=== PATIENT | female | born 1960 | race Caucasian/White ===

== ENCOUNTER → 2018-11-07 10:35 | Outpatient (CLI) | payer MEDICAID ==
[2018-11-07 11:12] LABS: BASOPHILS 0.3 % (0-2); EOSINOPHILS 3.7 % (0-7); HEMATOCRIT 33.6 % (36.0-48.0); HEMOGLOBIN 11.6 g/dL (12-16); IMMATURE GRANULOCYTES 0.3 % (0-5); LYMPHOCYTES 34.1 % (15-50); MCH 32.2 pg (26.0-34.0); MCHC 34.5 g/dL (31.0-37.0); MCV 93.3 fL (80.0-100.0); MONOCYTES 11.5 % (2-11); NEUTROPHILS 50.1 % (40-80); PLATELET COUNT 79 10x3/uL (130-400); RDW 14.9 % (11.5-14.5); WBC 5.8 10x3/uL (4.8-10.8)
[2018-11-07 11:20] LABS: INR 1.39 (0.85-1.17); PROTIME 16.5 SECONDS (11.6-15.0)
[2018-11-07 11:23] LABS: ALBUMIN 2.4 g/dL (3.4-5.0); ALKALINE PHOSPHATASE 201 U/L (46-116); ALT (SGPT) 15 U/L (10-68); BILIRUBIN - DIRECT 1.07 mg/dL (0.00-0.30); BILIRUBIN - INDIRECT 1.55 mg/dL (0.00-1.00); BILIRUBIN - TOTAL 2.62 mg/dL (0.2-1.3); CALC OSMOLALITY 278 mosm/kg (275-300); CALCIUM 8.4 mg/dL (8.5-10.1); CARBON DIOXIDE 24.9 mmol/L (21.0-32.0); CHLORIDE - SERUM 107 mmol/L (98-107); CREATININE - SERUM 0.8 mg/dL (0.6-1.3); GLUCOSE 105 mg/dL (74-106); SODIUM 140 mmol/L (136-145); UREA NITROGEN 12 mg/dL (7-18); eGFR NON AFRICAN AMERICAN 78 mL/min (90-120)
[2018-11-07 11:58] LABS: PLATELET ESTIMATE DECREASED
[2018-11-07 11:59] LABS: ANISOCYTOSIS OCC; HYPOCHROMASIA OCC
== END | disposition home or self-care (01) ==
LOC: D.LAB 10:35 → D.CT 11:00
PROVIDERS: ATTEND Internal Medicine Gastroenterology
DX: K74.60 Unspecified cirrhosis of liver (principal)

== ENCOUNTER 2019-10-13 16:17 | Inpatient (IN) | payer MEDICAID ==
[~2019-10-13] VITALS: Ht 154.9 cm; Wt 104.2 kg
[2019-10-13] MEDS ORDERED: UNKNOWN MEDS (16:32)
[2019-10-13 17:03] LABS: BASOPHILS 0 % (0-2); EOSINOPHILS 0.8 % (0-7); HEMATOCRIT 22.9 % (36.0-48.0); IMMATURE GRANULOCYTES 0.6 % (0-5); LYMPHOCYTES 15.1 % (15-50); MCH 28.5 pg (26.0-34.0); MEAN PLATELET VOLUME 10.5 fL (7.4-10.4); MONOCYTES 12.9 % (2-11); NEUTROPHILS 70.6 % (40-80); RBC 2.49 10x6/uL (4.00-5.40); RDW 18.3 % (11.5-14.5); WBC 4.8 10x3/uL (4.8-10.8)
[2019-10-13 17:04] LABS: HEMOGLOBIN 7.1 g/dL (12-16); PLATELET COUNT 60 10x3/uL (130-400)
[2019-10-13 17:18] LABS: ALBUMIN 1.6 g/dL (3.4-5.0); ANION GAP 11.8 mmol/L (8-16); APTT 51.4 SECONDS (22.8-39.4); BILIRUBIN - TOTAL 4.5 mg/dL (0.2-1.3); CALCIUM 7.7 mg/dL (8.5-10.1); PROTEIN - SERUM 6.7 g/dL (6.4-8.2); PROTIME 30.6 SECONDS (11.6-15.0)
[2019-10-13 17:22] LABS: PLATELET ESTIMATE DECREASED
[2019-10-13 17:32] LABS: POTASSIUM - SERUM 2.8 mmol/L (3.5-5.1)
[2019-10-13 19:00] VITALS: BP 117/55
--- NOTE | 2019-10-13 19:50 | NUR ---
GUAC IS POSITIVE, PROVIDER NOTIFIED.
[2019-10-13 20:16] VITALS: BP 119/56
--- NOTE | 2019-10-13 20:45 | NUR ---
BLOOD INFUSING PER ORDER, PATIENT A+O X3, VITAL SIGNS BEING MONITORED, PATIENT LAYING ON STRETCHER TALKING ON HER PHONE.
--- NOTE | 2019-10-13 21:18 | NUR ---
RECEIVED FROM ER. PT IS A&O, IST UNIT OF PRBC INFUSING TO 20G. L. BREAST, PROTONIX TO 22G. L.HAND, BED IS LOW, SRX2, CALL LIGHT IN REACH, WILL CONTINUE PLAN OF CARE
[2019-10-13] MEDS ORDERED: VITAMIN D1000 UNI1 PO (21:22)
[2019-10-13] MEDS ORDERED: AMBIEN10 MG PO (21:22)
[2019-10-13] MEDS ORDERED: TOPROL XL25 MG PO (21:23)
[2019-10-13] MEDS ORDERED: LYRICA25 MG PO (21:24)
[2019-10-13] MEDS ORDERED: FUROSEMIDE20 MG PO (21:25)
--- NOTE | 2019-10-13 23:07 | NUR ---
ALTHEA DANIEL STARTED 2ND UNIT OF PRBC
[2019-10-14] VITALS (7 sets, daily range): BP systolic 109–136; BP diastolic 48–57; BMI 38.8; BMI 38.7
--- NOTE | 2019-10-14 02:05 | NUR ---
I have reviewed this patient and I concur with the Shift Assessment completed by the Licensed Practical Nurse today this shift.
--- NOTE | 2019-10-14 02:26 | NUR ---
ADMISSION ASSESSMENT COMPLETED.
[2019-10-14 05:30] LABS: ALBUMIN 1.3 g/dL (3.4-5.0); ALKALINE PHOSPHATASE 90 U/L (30-120); ALT (SGPT) 9 U/L (10-68); BILIRUBIN - TOTAL 4.99 mg/dL (0.2-1.3); CALC OSMOLALITY 270 mosm/kg (275-300); CALCIUM 7.1 mg/dL (8.5-10.1); CARBON DIOXIDE 25.6 mmol/L (21.0-32.0); CHLORIDE - SERUM 106 mmol/L (98-107); CREATININE - SERUM 0.8 mg/dL (0.6-1.3); GLUCOSE 85 mg/dL (74-106); POTASSIUM - SERUM 3.3 mmol/L (3.5-5.1); PROTEIN - SERUM 5.5 g/dL (6.4-8.2); SODIUM 137 mmol/L (136-145); UREA NITROGEN 8 mg/dL (7-18); eGFR NON AFRICAN AMERICAN 78 mL/min (90-120)
[2019-10-14 06:15] LABS: BASOPHILS 0.3 % (0-2); EOSINOPHILS 1.9 % (0-7); HEMATOCRIT 24.7 % (36.0-48.0); IMMATURE GRANULOCYTES 1.1 % (0-5); LYMPHOCYTES 23.1 % (15-50); MCH 28.6 pg (26.0-34.0); MCHC 32.4 g/dL (31.0-37.0); MONOCYTES 14.8 % (2-11); NEUTROPHILS 58.8 % (40-80); WBC 3.6 10x3/uL (4.8-10.8)
[2019-10-14 06:37] LABS: MCV 88.2 fL (80.0-100.0)
[2019-10-14 06:38] LABS: PLATELET COUNT 37 10x3/uL (130-400)
--- NOTE | 2019-10-14 07:15 | NUR ---
RECEIVED PT IN BED EYES CLOSED RESP UNLABORED SKIN W/D NAD NOTED WILL CONTINUE TO MONITOR
[2019-10-14 09:39] LABS: UDS - AMPHET NEGATIVE QUAL (NEGATIVE); UDS - BARB NEGATIVE QUAL (NEGATIVE); UDS - BENZO NEGATIVE QUAL (NEGATIVE); UDS - COCAINE NEGATIVE QUAL (NEGATIVE); UDS - OPIATE NEGATIVE QUAL (NEGATIVE); UDS - PCP NEGATIVE QUAL (NEGATIVE); UDS - THC NEGATIVE QUAL (NEGATIVE)
[2019-10-14 10:25] LABS: BILIRUBIN NEGATIVE (NEGATIVE); GLUCOSE NEGATIVE (NEGATIVE); KETONE NEGATIVE (NEGATIVE); NITRITE NEGATIVE (NEGATIVE); SPECIFIC GRAVITY 1.025 (1.005-1.020)
[2019-10-14 10:26] LABS: BACTERIA MANY /hpf (NEGATIVE); RED CELLS - URINE 0-5 /hpf (0-5)
[2019-10-14 10:27] LABS: EPITHELIAL CELLS 0-5 /hpf (0-5)
--- NOTE | 2019-10-14 19:20 | NUR ---
RECEIVED REPORT, WILL ASSUME CARE OF PT, SLEEPING, NO DISTRESS NOTICED AT THIS TIME, BED IS LOW, SRX2, CALL LIGHT IN REACH, WILL CONTINUE PLAN OF CARE
[2019-10-15 01:53] LABS: BILIRUBIN NEGATIVE (NEGATIVE); GLUCOSE NEGATIVE (NEGATIVE); KETONE NEGATIVE (NEGATIVE); NITRITE NEGATIVE (NEGATIVE); UROBILINOGEN NORMAL (NORMAL)
[2019-10-15 01:54] LABS: BACTERIA FEW /hpf (NEGATIVE); EPITHELIAL CELLS 0-5 /hpf (0-5); RED CELLS - URINE 0-5 /hpf (0-5); WHITE CELLS - URINE 0-5 /hpf (NEGATIVE)
--- NOTE | 2019-10-15 02:38 | NUR ---
I have reviewed this patient and I concur with the Shift Assessment completed by the Licensed Practical Nurse today this shift.
[2019-10-15 05:23] VITALS: BP 125/44
[2019-10-15 06:43] LABS: BASOPHILS 0.3 % (0-2); EOSINOPHILS 2.2 % (0-7); HEMATOCRIT 25.9 % (36.0-48.0); HEMOGLOBIN 8.2 g/dL (12-16); IMMATURE GRANULOCYTES 0.5 % (0-5); LYMPHOCYTES 25.1 % (15-50); MCH 28.5 pg (26.0-34.0); MCHC 31.7 g/dL (31.0-37.0); MCV 89.9 fL (80.0-100.0); MEAN PLATELET VOLUME 10.4 fL (7.4-10.4); MONOCYTES 13.7 % (2-11); NEUTROPHILS 58.2 % (40-80); RBC 2.88 10x6/uL (4.00-5.40); RDW 18.4 % (11.5-14.5); WBC 3.7 10x3/uL (4.8-10.8)
[2019-10-15 06:50] LABS: INR 2.75 (0.85-1.17); PROTIME 28.6 SECONDS (11.6-15.0)
[2019-10-15 06:58] LABS: ALBUMIN 1.5 g/dL (3.4-5.0); ANION GAP 8.3 mmol/L (8-16); BILIRUBIN - TOTAL 5.04 mg/dL (0.2-1.3); CALCIUM 7.4 mg/dL (8.5-10.1); POTASSIUM - SERUM 3.3 mmol/L (3.5-5.1)
[2019-10-15 07:05] LABS: PLATELET COUNT 59 10x3/uL (130-400)
--- NOTE | 2019-10-15 09:05 | NUR ---
ASSESSMENT DONE, DENIES NEEDS
[2019-10-15 09:21] VITALS: BP 121/50
--- NOTE | 2019-10-15 10:14 | NUR ---
I have reviewed this patient and I concur with the Shift Assessment completed by the Licensed Practical Nurse today this shift.
[2019-10-15 10:26] LABS: PLATELET ESTIMATE DECREASED
[2019-10-15 13:03] VITALS: BP 156/68
[2019-10-15 17:38] VITALS: BP 126/52
--- NOTE | 2019-10-15 19:15 | NUR ---
UP WITH ASSIST TO BR.
--- NOTE | 2019-10-15 20:40 | NUR ---
HS MEDS GIVEN WITH FRESH ICE WATER. UP WITH ASSIST TO BR.
[2019-10-15 21:31] VITALS: BP 124/45
--- NOTE | 2019-10-15 23:01 | NUR ---
UP WITH ASSIST TO BR.
--- NOTE | 2019-10-16 00:02 | NUR ---
UP WITH ASSIST TO BR.
[2019-10-16 00:30] VITALS: BP 132/51
--- NOTE | 2019-10-16 00:49 | NUR ---
UP WITH ASSIST TO BR.
--- NOTE | 2019-10-16 03:46 | NUR ---
I have reviewed this patient and I concur with the Shift Assessment completed by the Licensed Practical Nurse today this shift.
[2019-10-16 04:39] VITALS: BP 123/57
[2019-10-16 06:29] LABS: BASOPHILS 0.2 % (0-2); EOSINOPHILS 1.7 % (0-7); HEMATOCRIT 26.8 % (36.0-48.0); HEMOGLOBIN 8.4 g/dL (12-16); IMMATURE GRANULOCYTES 0.5 % (0-5); LYMPHOCYTES 30.8 % (15-50); MCH 28.3 pg (26.0-34.0); MCHC 31.3 g/dL (31.0-37.0); MCV 90.2 fL (80.0-100.0); MEAN PLATELET VOLUME 10.1 fL (7.4-10.4); NEUTROPHILS 52.8 % (40-80); PLATELET COUNT 59 10x3/uL (130-400); RBC 2.97 10x6/uL (4.00-5.40); RDW 18.3 % (11.5-14.5); WBC 4.2 10x3/uL (4.8-10.8)
[2019-10-16 06:38] LABS: INR 2.76 (0.85-1.17); PROTIME 28.7 SECONDS (11.6-15.0)
[2019-10-16 06:42] LABS: ALBUMIN 1.5 g/dL (3.4-5.0); ANION GAP 8.3 mmol/L (8-16); BILIRUBIN - TOTAL 4.41 mg/dL (0.2-1.3); CALCIUM 7.8 mg/dL (8.5-10.1); CARBON DIOXIDE 28.6 mmol/L (21.0-32.0); CREATININE - SERUM 0.9 mg/dL (0.6-1.3); POTASSIUM - SERUM 3.9 mmol/L (3.5-5.1); PROTEIN - SERUM 6.3 g/dL (6.4-8.2)
--- NOTE | 2019-10-16 07:39 | NUR ---
ASSESSMENT DONE, DENIES NEEDS
[2019-10-16 07:59] VITALS: BP 117/51
--- NOTE | 2019-10-16 09:23 | NUR ---
I have reviewed this patient and I concur with the Shift Assessment completed by the Licensed Practical Nurse today this shift.
--- NOTE | 2019-10-16 10:20 | NUR ---
REHAB PRESCREENING CONSULT RECIEVED AND THE CHART HAS BEEN REVIEWED. SHE [place] [employer] AND WILL REQUIRE A PREAUTH. SHE HAS A PT AND OT EVAL ORDERED BUT NOT COMPLETED. SPOKE TO THE CM SHE WILL DISCUSS REHAB WITH THE PATIENT AND DETERMINE IF SHE FEELS IS WOULD BE BENEFICIAL FOR HER AT THIS TIME. IS SHE DOES ALL INFORMATION WILL BE SUBMITTED TO WHEN COMPLETED FOR THEIR REVIEW. FREDERICK GRIGGS RN CLINICAL LIAISON, REHAB
[2019-10-16 11:41] VITALS: BP 134/56
--- NOTE | 2019-10-16 14:38 | MORECARE ---
CASE MANAGEMENT DISCHARGE SUMMARY PATIENT: OBIE JARAMILLO UNIT: [id number] ADM DATE: 10/13/19 AGE: 59 : 64 SEX: F ROOM/BED: D.5320 AUTHOR: CHERRI LAZO PHYSICIAN: REFERRING PHYSICIAN: NORIS PRAKASH DO DATE OF SERVICE: 10/16/19 Discharge Plan Patient Name: OBIE JARAMILLO Facility: [facility]:[place] : 1960 Planned Disposition: Rehab Fac/Unit w Plan Readm Anticipated Discharge Date: Discharge Date: Expected LOS: Initial Reviewer: [email or web address] Initial Review Date: 10/13/2019 Generated: 10/16/19 3:37 pm DCP- Discharge Planning Updated by [email or web address]: Onelia Atkins on 10/16/19 1:[address] Patient Name: OBIE JARAMILLO Admission Status: ER Accout number: [id number] Admission Date: 10-13-2019 : 1960 Admission Diagnosis:UNSPECIFIED ABDOMINAL PAIN Attending: NORIS PRAKASH Current LOS: 3 Anticipated DC Date: Planned Disposition: Rehab Fac/Unit w Plan Readm Primary Insurance[place] [employer] [facility] Discharge Planning Comments: CM met with patient to complete initial dc planning assessment. CM educated patient on the CM role and verbal consent given by patient to complete assessment. CM verified patient's address, phone number, and emergency contact phone numbers. Patient currently lives home alone, and does not think she can care for herself any longer. States she is severely swollen and is having difficulty walking. CM discussed availability of home health, rehab services, and medical equipment. MAXWELL form signed by patient for 1. [facility] rehab, 2. [place] [facility] , 3, [facility]. Signed form placed in chart and signed form given to patient.Spoke with Gracie from IP rehab who states an auth is pending. Transportation provider at discharge will be Reji [phone] his Karen [phone]. CM will continue to follow and will assist as needed with dc plans/needs. Roller Checker: Onelia Atkins MSN,RN,CM DCPIA - Discharge Planning Initial Assessment Updated by [id number]: Onelia Atkins on 10/16/19 2:26 pm * Is the patient Alert and Oriented? Yes * How many steps to enter\exit or inside your home? 0/0 * PCP ALIA * Pharmacy [facility] * Preadmission Environment Home Alone * ADLs Independent * Equipment None * List name and contact numbers for known caregivers / representatives who currently or will assist patient after discharge: BROTHER (REJI) [phone] KAREN- OF REJI (MEGAN) [phone] * Verbal permission to speak to the caregivers and representatives has been obtained from the patient. Yes * Community resources currently utilized None * Please name any agencies selected above. [facility] * Additional services required to return to the preadmission environment? Yes * Can the patient safely return to the preadmission environment? No * Has this patient been hospitalized within the prior 30 days at any hospital? No Coverage Notice Reviewer: [id number] - Onelia Atkins Notice Issued Date-Time: 10/16/2019 10:20 Notice Type: Patient Choice Letter Notice Delivered To: Family Member Relationship to Patient: Assistant Housekeeping Manager Name: Delivery Method: HAND - Hand Delivered Susana Days: Prior Verbal Notification: Recipient Understood Notice: Yes Recipient Signature: Yes Med Rec Note Co-signed by Attending: Coverage Notice Comment: MAXWELL signed for lucita denney pines Patient Name: OBIE JARAMILLO Page [phone] at 1438 All edits/amendments must be made on the electronic document DICTATION DATE: 10/16/191436 PHARMACOLOGY PROFESSOR: CARMEN 10/16/19 143 RPT#: [id number] DC DATE: STATUS: ADM IN [facility] [address] [place] [address] END OF REPORT
[2019-10-16 16:33] VITALS: BP 125/54
--- NOTE | 2019-10-16 18:26 | NUR ---
WITHOUT CHANGES OR DISTRESS NOTED AT THIS TIME. DENIES NEEDS
[2019-10-16 20:00] VITALS: BP 118/57
--- NOTE | 2019-10-16 20:30 | NUR ---
UP WITH ASSIST TO BSC.
[2019-10-17] VITALS: BP 124/58
[2019-10-17 04:00] VITALS: BP 141/60
--- NOTE | 2019-10-17 07:16 | NUR ---
ASSESSMENT DONE. DENIES NEEDS
[2019-10-17 08:09] LABS: BASOPHILS 0.5 % (0-2); EOSINOPHILS 2.1 % (0-7); HEMATOCRIT 25.7 % (36.0-48.0); HEMOGLOBIN 8.4 g/dL (12-16); IMMATURE GRANULOCYTES 0.3 % (0-5); LYMPHOCYTES 34.5 % (15-50); MCH 29.4 pg (26.0-34.0); MCHC 32.7 g/dL (31.0-37.0); MCV 89.9 fL (80.0-100.0); MONOCYTES 13.5 % (2-11); NEUTROPHILS 49.1 % (40-80); RBC 2.86 10x6/uL (4.00-5.40); RDW 18.3 % (11.5-14.5); WBC 3.8 10x3/uL (4.8-10.8)
[2019-10-17 08:15] LABS: INR 2.61 (0.85-1.17); PROTIME 27.5 SECONDS (11.6-15.0)
[2019-10-17 08:17] LABS: PLATELET COUNT 47 10x3/uL (130-400)
[2019-10-17 08:23] LABS: ALBUMIN 1.5 g/dL (3.4-5.0); ANION GAP 5.1 mmol/L (8-16); BILIRUBIN - TOTAL 3.64 mg/dL (0.2-1.3); CALCIUM 7.6 mg/dL (8.5-10.1); CARBON DIOXIDE 29.8 mmol/L (21.0-32.0); CREATININE - SERUM 0.9 mg/dL (0.6-1.3); POTASSIUM - SERUM 3.9 mmol/L (3.5-5.1); PROTEIN - SERUM 6.2 g/dL (6.4-8.2)
--- NOTE | 2019-10-17 09:24 | NUR ---
I have reviewed this patient and I concur with the Shift Assessment completed by the Licensed Practical Nurse today this shift.
[2019-10-17 09:25] VITALS: BP 123/56
--- NOTE | 2019-10-17 12:46 | NUR ---
OT NOTE: PT DOING BETTER TODAY. ABLE TO PERFORM SUPINE TO SIT WITH MIN ASSIST; EOB SITTING WITH GOOD BALANCE; ABLE TO AMB TO BATHROOM WITH AUTO SERVICE REPRESENTATIVE.. CONT TO BE UNSTEADY WITH GAIT. TOILETING WITH SBA; AMB TO SINK FOR SINK HYGIENE WITH MIN ASSIST. FATIGUES QUICKLY; POOR FUNCTIONAL ENDURANCE. MOD ASSIST IWTH LE DRESSING. BACK TO BED WITH MIN ASSIST; EDUCATED ON SAFETY AND ENDURANCE TASKS. HYACINTH HAWTHORNE, OTR/L [phone]
--- NOTE | 2019-10-17 12:48 | NUR ---
Nutrition Follow-up: PO intake fluctuating. Reports eating >50% of breakfast this AM. C/o early satiety. States that she is going to try some Ensure (one bottle at BS). Diet: Low Na Wt: 229.2# (10/15); 232.5# (10/14); 205# (10/12 - stated) Last BM: 10/14 Labs noted: Ca 7.6, Alb 1.5 Meds noted: Lasix, Protonix, electrolyte protocol -Encourage PO intake and honor food preferences within diet restrictions. -Offer nutrition supplements. -Monitor wt; noted daily wts ordered. -RD following.
[2019-10-17] MEDS ORDERED: LEVAQUIN750 MG PO (13:07)
[2019-10-17] MEDS ORDERED: K-DUR20 MEQ PO (13:08)
[2019-10-17] MEDS ORDERED: ALDACTONE100 MG PO (13:08)
[2019-10-17] MEDS ORDERED: LASIX40 MG PO (13:08)
[2019-10-17 13:45] VITALS: BP 133/56
[2019-10-17 14:11] VITALS: Ht 154.9 cm; Wt 104.2 kg
--- NOTE | 2019-10-17 14:14 | NUR ---
I CALLED BEAN PAEZ APN TO SEE ABOUT CONTINUATION OF MEDICATIONS OF FLORAGEN, PROTONIX, AND NICODERM PATCH FOR REHAB. STATES TO CONTINUE.
[2019-10-17] MEDS ORDERED: PROTONIX40 MG PO (14:16)
[2019-10-17] MEDS ORDERED: FLORAJEN3 CAPS460 MG PO (14:16)
[2019-10-17] MEDS ORDERED: NICODERM CQ1 EAC3 TOPICAL (14:16)
--- NOTE | 2019-10-17 15:37 | NUR ---
OT NOTE: PT COMPLETED ADL MOB WITH EVELIA Hernandez. PT COMPLETED SITTING AND STANDING BALANCE WITH SBA/CGA. PT CUED ON PURSE BREATHING TECHNIQUES SECONDARY TO SOB WITH ACTIVITIES. PT COMPLETED UB/LB HYGIENE TASKS WITH SETUP. [phone] THANK YOU,MOLINA SUMMERS
--- NOTE | 2019-10-17 17:45 | NUR ---
DC GIVEN TO PT
--- NOTE | 2019-10-17 18:00 | NUR ---
REPORT CALLED TO REHAB
--- NOTE | 2019-10-17 19:19 | NUR ---
BED LOW AND CALL LIGHT IS WITH PT PT IS AWAKE ON HER PHONE
--- NOTE | 2019-10-18 08:59 | MORECARE ---
CASE MANAGEMENT DISCHARGE SUMMARY PATIENT: OBIE JARAMILLO UNIT: [id number] ADM DATE: 10/13/19 AGE: 59 : 64 SEX: F ROOM/BED: D.4460 AUTHOR: CHERRI LAZO PHYSICIAN: REFERRING PHYSICIAN: NORIS PRAKASH DO DATE OF SERVICE: 10/18/19 Discharge Plan Patient Name: OBIE JARAMILLO Facility: [facility]:[place] : 1960 Planned Disposition: Rehab Fac/Unit w Plan Readm Anticipated Discharge Date: Discharge Date: 10/17/2019 Expected LOS: Initial Reviewer: [email or web address] Initial Review Date: 10/13/2019 Generated: 10/18/19 9:59 am DCP- Discharge Planning Updated by [email or web address]: Onelia Atkins on 10/16/19 1:[address] Patient Name: OBIE JARAMILLO Admission Status: ER Accout number: [id number] Admission Date: 10-13-2019 : 1960 Admission Diagnosis:UNSPECIFIED ABDOMINAL PAIN Attending: NORIS PRAKASH Current LOS: 3 Anticipated DC Date: Planned Disposition: Rehab Fac/Unit w Plan Readm Primary Insurance: [place] [employer] Discharge Planning Comments: CM met with patient to complete initial dc planning assessment. CM educated patient on the CM role and verbal consent given by patient to complete assessment. CM verified patient's address, phone number, and emergency contact phone numbers. Patient currently lives home alone, and does not think she can care for herself any longer. States she is severely swollen and is having difficulty walking. CM discussed availability of home health, rehab services, and medical equipment. MAXWELL form signed by patient for 1. [facility] IP rehab, 2. [place] or [facility] , 3, [facility]. Signed form placed in chart and signed form given to patient.Spoke with Gracie from IP rehab who states an auth is pending. Transportation provider at discharge will be Reji [phone] his Karen [phone]. CM will continue to follow and will assist as needed with dc plans/needs. Tool And Die Maker Level Five: Onelia Atkins MSN,RN,CM DCPIA - Discharge Planning Initial Assessment Updated by [email or web address]: Onelia Atkins on 10/16/19 2:26 pm * Is the patient Alert and Oriented? Yes * How many steps to enter\exit or inside your home? 0/0 * PCP ALIA * Pharmacy [facility] * Preadmission Environment Home Alone * ADLs Independent * Equipment None * List name and contact numbers for known caregivers / representatives who currently or will assist patient after discharge: BROTHER (REJI) [phone] KAREN- OF REJI (MEGAN) [phone] * Verbal permission to speak to the caregivers and representatives has been obtained from the patient. Yes * Community resources currently utilized None * Please name any agencies selected above. [facility] * Additional services required to return to the preadmission environment? Yes * Can the patient safely return to the preadmission environment? No * Has this patient been hospitalized within the prior 30 days at any hospital? No Coverage Notice Reviewer: [id number] - Onelia Atkins Notice Issued Date-Time: 10/16/2019 10:20 Notice Type: Patient Choice Letter Notice Delivered To: Family Member Relationship to Patient: Stiff Leg Operator Name: Delivery Method: HAND - Hand Delivered Susana Days: Prior Verbal Notification: Recipient Understood Notice: Yes Recipient Signature: Yes Med Rec Note Co-signed by Attending: Coverage Notice Comment: MAXWELL signed for ip rehablucita pines Last DP export: 10/16/19 1:38 p Patient Name: OBIE JARAMILLO Page [id number] at 0859 All edits/amendments must be made on the electronic document DICTATION DATE: 10/18/19858 MILK TANKER DRIVER: CARMEN 10/18/19 0859 RPT#: [id number] DC DATE:10/17/19 STATUS: DIS IN [facility] [address] [facility] [place] [address] END OF REPORT
== END 2019-10-17 20:00 | DRG 432 ==
LOC: D.ER 16:17 → D.M2 19:50
PROVIDERS: Family Medicine; Internal Medicine Nephrology; ADMIT Family Medicine; ATTEND Family Medicine
DX: K74.60 Unspecified cirrhosis of liver (principal); E43 Unspecified severe protein-calorie malnutrition; D61.818 Other pancytopenia; N39.0 Urinary tract infection, site not specified; R18.8 Other ascites; F17.203 Nicotine dependence unspecified, with withdrawal; K76.6 Portal hypertension; D64.9 Anemia, unspecified; E87.6 Hypokalemia; Z68.38 Body mass index [BMI] 38.0-38.9, adult; F32.9 Major depressive disorder, single episode, unspecified; B96.89 Other specified bacterial agents as the cause of diseases classified elsewhere

== ENCOUNTER 2019-10-17 14:50 | Inpatient (IN) | payer MEDICAID ==
[~2019-10-17] VITALS: Ht 154.9 cm; Wt 104.3 kg
[~2019-10-17 14:50] MED LIST: ALDACTONE100 MG PO; AMBIEN10 MG PO; FLORAJEN3 CAPS460 MG PO; FUROSEMIDE20 MG PO; K-DUR20 MEQ PO; LASIX40 MG PO; LEVAQUIN750 MG PO; LYRICA25 MG PO; NICODERM CQ1 EAC3 TOPICAL; PROTONIX40 MG PO; TOPROL XL25 MG PO; UNKNOWN MEDS; VITAMIN D1000 UNI1 PO
--- NOTE | 2019-10-17 21:00 | NUR ---
ADMIT THIS PATIENT TO 1109 FOR PHYSICAL REHAB AND SERVICES OF DR SONG. RECIEVED AWAKE AND ALERT. RESPIRATIONS UNLABORED. NOTED MILD SWELLING IN BILATERAL LEGS. HX OF CIRHOSIS OF THE LIVER, GI BLEED AND WEAKNESS. CONSULT FOR DR JOHNSTON ORDERED RELATED TO PLATELET COUNT. ORIENTED TO ROOM AND CALL LIGHT USE, FALLS PRECAUTINS REVIEWED WITH PATIENT. VOICES UNDERSTANDING. SEE FOR ADMISSION ASSESSMENT. NOW RESTING IN BED WITH NO ACUTE DISTRESS NOTED.
[2019-10-17 21:55] VITALS: BP 126/53; BMI 43.5
--- NOTE | 2019-10-18 00:16 | NUR ---
RESTING IN BED WITH RESPIRATIONS UNLABORED. NO DISTRESS NOTED.
--- NOTE | 2019-10-18 05:10 | NUR ---
QUIET HOURS. NO ACUTE CHANGES IN CONDITION THIS SHIFT. RESTING IN BED WITH NO DISTRESS NOTED.
[2019-10-18 07:41] LABS: BASOPHILS 0.5 % (0-2); EOSINOPHILS 1.8 % (0-7); HEMATOCRIT 26.4 % (36.0-48.0); HEMOGLOBIN 8.5 g/dL (12-16); IMMATURE GRANULOCYTES 0.5 % (0-5); LYMPHOCYTES 34.1 % (15-50); MCH 28.9 pg (26.0-34.0); MCHC 32.2 g/dL (31.0-37.0); MCV 89.8 fL (80.0-100.0); MEAN PLATELET VOLUME 9.4 fL (7.4-10.4); MONOCYTES 13.9 % (2-11); NEUTROPHILS 49.2 % (40-80); RBC 2.94 10x6/uL (4.00-5.40); RDW 18.5 % (11.5-14.5); WBC 3.8 10x3/uL (4.8-10.8)
[2019-10-18 07:45] LABS: PLATELET COUNT 43 10x3/uL (130-400)
--- NOTE | 2019-10-18 08:00 | NUR ---
CRITICAL LAB PLT 43, DR. SONG NOTIFIED,
[2019-10-18 08:09] LABS: ANION GAP 6.5 mmol/L (8-16); CALCIUM 7.7 mg/dL (8.5-10.1); CARBON DIOXIDE 30.1 mmol/L (21.0-32.0); POTASSIUM - SERUM 3.6 mmol/L (3.5-5.1)
[2019-10-18 08:12] VITALS: BP 133/59
[2019-10-18 08:17] VITALS: BP 133/59
[2019-10-18 08:19] VITALS: BP 133/59
--- NOTE | 2019-10-18 08:21 | NUR ---
INTRODUCED SELF TO PATIENT AND PUT NAME ON BOARD, PT. UP TO GO TO B/R, V/S AND ASSESSMENT COMPLETE, DENIES ANY NEEDS AT THIS TIME, C/L AND FLUIDS IN REACH.
[2019-10-18 08:22] LABS: PLATELET ESTIMATE DECREASED
--- NOTE | 2019-10-18 10:54 | NUR ---
PATIENT ADMITTED TO REHAB FROM ACUTE FLOOR. PATIENT PCP IS DR. ROJO, SHE HAS CHOSEN [facility] AT HOME, [facility] AT DISCHARGE. WILL CONTINUE TO FOLLOW WITH PATIENT. DISCHARGE PLANS ARE FOR HER TO RETURN HOME.
--- NOTE | 2019-10-18 12:00 | NUR ---
RESTING IN BED WITH EYES CLOSED, RESP EVEN AND UNLABORED, NO S/S OF DISTRESS NOTED, C/L AND FLUIDS IN REACH.
[2019-10-18 13:48] VITALS: BMI 43.4
--- NOTE | 2019-10-18 16:00 | NUR ---
PATIENT UP IN CHAIR WATCHING TV, DENIES ANY NEEDS AT THIS TIME, C/L AND FLUIDS IN REACH.
--- NOTE | 2019-10-18 19:55 | NUR ---
AWAKE AND ALERT. ASSISTED TO BATHROOM AND BACK TO BED. RESTING NOW WITH NO ACUTE DISTRESS NOTED.
[2019-10-18 20:00] VITALS: BP 125/53
--- NOTE | 2019-10-19 02:41 | NUR ---
SLEEPING WITH RESPIRATIONS UNLABORED. NO DISTRESS NOTED.
--- NOTE | 2019-10-19 05:10 | NUR ---
QUIET HOURS. NO ACUTE CHANGES IN CONDITION THIS SHIFT. RESTING IN BED WITH RESPIRIATONS UNLABORED. NO DISTRESS NOTED.
[2019-10-19 07:58] VITALS: BP 101/54
--- NOTE | 2019-10-19 08:00 | NUR ---
UP IN W/C WENT TO B/R, V/S AND ASSESSMENT COMPLETE, DENIES ANY OTHER NEEDS AT THIS TIME, C/L AND FLUIDS IN REACH.
[2019-10-19 10:09] VITALS: Ht 154.9 cm; Wt 104.3 kg
--- NOTE | 2019-10-19 12:15 | NUR ---
UP IN W/C EATING LUNCH, DENIES ANY NEEDS AT THIS TIME, C/L AND FLUIDS IN REACH.
--- NOTE | 2019-10-19 16:02 | NUR ---
RESTING IN BED WATCHING TV, DENIES ANY NEEDS AT THIS TIME, C/L AND FLUIDS IN REACH.
[2019-10-19 19:00] VITALS: BP 115/43
--- NOTE | 2019-10-19 19:00 | NUR ---
BEDSIDE REPORT COMPLETE. PT LYING IN BED WATCHING TV. ALERT AND ORIENTED X4. DENIES ANY NEEDS OR PAIN. NO SIGNS OF ACUTE DISTRESS NOTED. VS STABLE. SHIFT ASSESSMENT COMPLETE. CALL LIGHT AND WATER WITHIN REACH. FALL PRECAUTIONS IN PLACE. CPOC
[2019-10-20] VITALS (7 sets, daily range): BP systolic 104–131; BP diastolic 44–56
--- NOTE | 2019-10-20 03:10 | NUR ---
PT LYING IN BED EYES CLOSED RESTING COMFORTABLY. RR EVEN AND UNLABORED. CALL LIGHT WITHIN REACH. BED ALARM ON. CPOC
--- NOTE | 2019-10-20 05:50 | NUR ---
PT LYING IN BED ON RIGHT SIDE EYES CLOSED RESTING COMFORTABLY. RR EVEN AND UNLABORED. CALL LIGHT WITHIN REACH. BED ALARM ON. CPOC
[2019-10-20 07:31] LABS: BASOPHILS 0.3 % (0-2); EOSINOPHILS 2.2 % (0-7); HEMATOCRIT 24.6 % (36.0-48.0); HEMOGLOBIN 7.8 g/dL (12-16); IMMATURE GRANULOCYTES 0.3 % (0-5); LYMPHOCYTES 36.7 % (15-50); MCH 28.6 pg (26.0-34.0); MCHC 31.7 g/dL (31.0-37.0); MCV 90.1 fL (80.0-100.0); MONOCYTES 14.1 % (2-11); NEUTROPHILS 46.4 % (40-80); RBC 2.73 10x6/uL (4.00-5.40); RDW 18.7 % (11.5-14.5); WBC 3.2 10x3/uL (4.8-10.8)
[2019-10-20 07:38] LABS: PLATELET COUNT 32 10x3/uL (130-400)
--- NOTE | 2019-10-20 08:00 | NUR ---
PATIENT IS ALERT/ORIENT. CALL LIGHT WITHIN REACH. VOICES NO NEEDS AT THIS TIME. WILL CONTINUE WITH PLAN OF CARE.
[2019-10-20 08:05] LABS: PLATELET ESTIMATE DECREASED
--- NOTE | 2019-10-20 09:32 | NUR ---
DR PRESTON CLEANING. AWARE OF LOW PLT COUNT.
--- NOTE | 2019-10-20 13:00 | NUR ---
DR JOHNSTON INTO SEE PATIENT. NEW ORDERS RECEIVED FOR TWO UNITS OF PRBC AND ONE UNIT OF PLTS
--- NOTE | 2019-10-20 13:41 | NUR ---
PATIENT GIVEN A SHOWER BY THIS NURSE. UNABLE TO FIND A VEIN FOR IV. TIE MAKER CALLED.
--- NOTE | 2019-10-20 14:13 | NUR ---
DELILAH, HOUSESUPPERVISOR ABLE TO START IV IN LEFT BREAST
--- NOTE | 2019-10-20 15:35 | NUR ---
PRE MEDICATION FOR BLOOD TRANSFUSION GIVEN. FIRST UNIT OF PRBC STARTED.
--- NOTE | 2019-10-20 18:50 | NUR ---
BEDSIDE REPORT COMPLETE. PT LYING IN BED VISITING WITH FAMILY MEMBER. ALERT AND ORIENTED X4. RIGHT BREAST IV INFUSING 2ND UNIT PRBC 100ML/HR. NO SIGNS OF ACUTE DISTRESS NOTED. VS STABLE. SHIFT ASSESSMENT COMPLETE. DENIES ANY NEEDS OR PAIN. CALL LIGHT WITHIN REACH. BED ALARM ON. CPOC
--- NOTE | 2019-10-20 19:45 | NUR ---
ASSISTED PT TO BSC WITH MIN ASSIST.
--- NOTE | 2019-10-20 21:40 | NUR ---
2ND UNIT PRBC COMPLETE. VS STABLE. SEE FLOWSHEET.
--- NOTE | 2019-10-20 22:15 | NUR ---
1 UNIT PLATELETS VERIFIED WITH 2ND NURSE AND INFUSING RIGHT BREAST IV 100ML/HR. VS STABLE. PT LYING IN BED ALERT. DENIES ANY NEEDS OR PAIN. CALL LIGHT WITHIN REACH. BED ALARM ON. CPOC
--- NOTE | 2019-10-20 23:15 | NUR ---
RIGHT BREAST IV NOT INFUSING PLATLETS WITHOUT CONTINUOUS OCCLUSION SITE FLUSHES WITHOUT DIFFICULTY. IV CHANNEL CHANGED OUT STILL HAVING ISSUES INFUSING. STARTED 2ND IV IN RIGHT HAND 22G X2 ATTEMPTS. RIGHT HAND NOW INFUSING PLATELETS @ 100ML/HR. PT TOLERATED WELL. DENIES ANY PAIN OR NEEDS. CALL LIGHT WITHIN REACH. BED ALARM ON. CPOC
[2019-10-21 01:00] VITALS: BP 104/51
--- NOTE | 2019-10-21 01:00 | NUR ---
PLATLETS COMPLETE. VS STABLE. PT LYING IN BED EYES CLOSED RESTING COMFORTABLY. RR EVEN AND UNLABORED. CALL LIGHT WITHIN REACH. BED ALARM ON.
--- NOTE | 2019-10-21 04:32 | NUR ---
PT LYING IN BED ON LEFT SIDE EYES CLOSED RESTING QUIETLY. RR EVEN AND UNLABORED. CALL LIGHT WITHIN REACH. BED ALARM ON. CPOC
[2019-10-21 07:09] LABS: BASOPHILS 0.3 % (0-2); EOSINOPHILS 1.6 % (0-7); HEMATOCRIT 28.2 % (36.0-48.0); HEMOGLOBIN 9.3 g/dL (12-16); IMMATURE GRANULOCYTES 0.6 % (0-5); LYMPHOCYTES 34.8 % (15-50); MCH 29.7 pg (26.0-34.0); MCV 90.1 fL (80.0-100.0); MEAN PLATELET VOLUME 10.2 fL (7.4-10.4); MONOCYTES 15.4 % (2-11); NEUTROPHILS 47.3 % (40-80); RBC 3.13 10x6/uL (4.00-5.40); RDW 18.2 % (11.5-14.5); WBC 3.2 10x3/uL (4.8-10.8)
[2019-10-21 07:28] LABS: PLATELET COUNT 56 10x3/uL (130-400)
[2019-10-21 07:35] LABS: ALBUMIN 1.6 g/dL (3.4-5.0); ANION GAP 8.4 mmol/L (8-16); BILIRUBIN - TOTAL 5.28 mg/dL (0.2-1.3); CALCIUM 8.4 mg/dL (8.5-10.1); CARBON DIOXIDE 28.2 mmol/L (21.0-32.0); CREATININE - SERUM 1.1 mg/dL (0.6-1.3); POTASSIUM - SERUM 3.6 mmol/L (3.5-5.1); PROTEIN - SERUM 6.1 g/dL (6.4-8.2)
[2019-10-21 08:00] VITALS: BP 107/41
--- NOTE | 2019-10-21 08:00 | NUR ---
PT RESTING IN BED WITH EYES OPEN CALL LIGHT IN REACH WILL MONITER
[2019-10-21 19:55] VITALS: BP 118/51
--- NOTE | 2019-10-21 19:55 | NUR ---
BEDSIDE REPORT COMPLETE. PT SITTING UP IN BED TALKING ON PHONE. ALERT AND ORIENTED X3. REORIENTED TO TIME. RIGHT BREAST SALINE LOCK WITHOUT REDNESS OR SWELLING. DRESSING C/D/I. RIGHT HAND IV SL WITHOUT REDNESS OR SWELLING. DRESSING C/D/I. BOTH IV SITES PATENT. PT DENIES ANY NEEDS OR PAIN. CALL LIGHT WITHIN REACH. BLE ELEVATED. BED ALARM ON. CPOC.
--- NOTE | 2019-10-21 23:30 | NUR ---
PT LYING IN BED ON LEFT SIDE EYES CLOSED RESTING QUIETLY. RR EVEN AND UNLABORED. CALL LIGHT WITHIN REACH. BED ALARM ON. CPOC
--- NOTE | 2019-10-22 05:12 | NUR ---
PT LYING IN BED ON RIGHT SIDE EYES CLOSED RESTING COMFORTABLY. RR EVEN AND UNLABORED. CALL LIGHT WITHIN REACH. BED ALARM ON. CPOC
--- NOTE | 2019-10-22 08:00 | NUR ---
PT RESTING IN BED WITH EYES OPEN PT HAS SLIGHT CONFUSING THIS MORNING TRYED TO REORIENT TO SURROUNDINGS WILL MONITER CALL LIGHT IN REACH
[2019-10-22 08:04] VITALS: BP 128/48
--- NOTE | 2019-10-22 12:05 | NUR ---
I have reviewed this patient and I concur with the Shift Assessment completed by the Licensed Practical Nurse today this shift.
--- NOTE | 2019-10-22 13:50 | NUR ---
Nutrition follow-up: Diet: No Added Salt PO intake 75-100% of meals; HS snack Labs reviewed; NH3 117 today Wt: 229# +BM PO intake good at this time RDN following.
--- NOTE | 2019-10-22 14:59 | RHP ---
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 She has got a history of liver disease. She has got a history of fatty liver. Her H&H were 7 and 23. She received 2 units of packed red blood cells. Her platelets were 37,000. She has received a unit of platelets. PT and INR were 3.0. She was admitted to the hospital. She had oncology and gastroenterology consultation during her stay. She had been seen by supervisor spring up over in [place]. She has been noncompliant with followup with appointments testing or treatment. She has also been dealing with some kidney stones and stents lately. She got a history of cirrhosis, got a history of diabetes, asthma, thyroid disorder, and hypertension. The patient has had an elevated INR and low platelets throughout her stay. She has been continued with PT and OT during her stay. She needs to be monitored closely on telemetry with tachycardia, her weight, and abdominal girth. She got IV antibiotic therapy. She has got tachycardia. She is having some changes in mental status, depending on her ammonia level. She has got low H&H and platelets, which were followed by CBCs. She has weakness, balance deficits, decreased activity tolerance, impaired mobility, decreased range of motion, gait disturbance, limited safety awareness. She is at risk for falls. She has multiple recent falls lately, needs cues for equipment, low endurance, unsteady gait and balance, fatigues easily, inability to care for herself. These are all reasons for her been placed in the rehab instead of discharging home. She lives at home alone, has had multiple recent falls, independent with her ADLs prior to this. Currently set up for max assist for ADLs and mod to max assist for mobility. She would like to return home at her prior level of functioning or better after being placed here in the rehabilitation. COMORBIDITIES: Include morbid obesity, cirrhosis of the liver, abdominal ascites, pancytopenia, normocytic anemia, coagulopathy, electrolyte abnormalities, tobacco abuse, severe protein-calorie malnutrition, elevated bilirubin, weakness and bilateral leg edema. PAST MEDICAL HISTORY: Significant for cirrhosis, weakness, depression, tobacco use, hypertension, thyroid problems, kidney stones. PAST SURGICAL HISTORY: Includes hysterectomy and tonsillectomy. ALLERGIES: PENICILLIN, SULFA AND MACRODANTIN. CURRENT HOME MEDICATIONS: Include Floranex 1 cap daily, she is on spironolactone 100 mg daily, she is on Lyrica 25 mg b.i.d., potassium 20 mEq daily, on Nicoderm patch, metoprolol 12.5 mg daily, Levaquin 750 mg daily, Protonix 40 mg daily, furosemide 40 mg b.i.d., Tylenol 650 every 4 hours p.r.n., Ambien 5 mg at bedtime p.r.n., Benadryl 25 mg every 6 hours p.r.n. and vitamin D daily. HISTORY AND PHYSICAL [id number] OBIE JARAMILLO HABITS: Does have a history of tobacco use. FAMILY HISTORY: Noncontributory. SOCIAL HISTORY: The patient hopes to return back home and get back to her prior level of functioning. REVIEW OF SYSTEMS: GENERAL: Does complain of weakness and fatigue. HEENT: Denies cold, cough, or congestion. CARDIOVASCULAR: Denies any chest pain. PHYSICAL EXAMINATION: VITAL SIGNS: Stable, afebrile. GENERAL: A morbidly obese female, in no acute distress upon exam. HEENT: Normocephalic and atraumatic. Mucosa moist. NECK: Supple. No lymphadenopathy. LUNGS: Clear in upper kline. HEART: Regular rate and rhythm. No murmurs, rubs or gallops. ABDOMEN: Soft, benign, noted to be distended and obese, but no tenderness. EXTREMITIES: Does have peripheral edema. NEUROLOGIC: She does have proximal muscle weakness. LABORATORY DATA: Her white count is 3.8, H&H of 8.5 and 26.4 and platelet count is 43. Her sodium is 136, potassium 3.6, BUN and creatinine of 9 and 1.0 and blood sugars noted to be 82. ASSESSMENT: This is a 59-year-old female patient admitted to rehab with a working diagnosis of muscle disuse and atrophy secondary to cirrhosis. The patient has potential to make improvement. We instituted the following multidisciplinary therapies including, but not limited to physical, occupational, respiratory, speech, nutritional services, prosthetics and orthotics. Given her complex medical condition and risks for more complications, rehabilitation services cannot be provided at a low level of care such as [facility] facility. PLAN: 1. Admit to [facility] for the following modalities; A. Physical therapy to improve gait, all transfer skills and bed mobility to a modified independent level. B. Occupational therapy to improve activities of daily living to independent level. C. Case management to assist with discharge planning and placement options. D. Nutrition to assist with nutritional needs. E. Rehabilitation nursing to assist in monitoring the patient's underlying medical condition and to assist with any type of bowel or bladder management. 2. The patient's current medication and medical care will be continued. 3. The patient will be placed on standard fall precautions. 4. We will watch her ammonia levels as such and I will see again in the morning. TRANSINT:[id number] Voice Confirmation ID: [id number] DOCUMENT ID: [id number] VINAY notes whether there has been none or any medical/functional HISTORY AND PHYSICAL [id number] OBIE JARAMILLO change since admission: - No change since prescreen. VINAY attests patient continues to be appropriate for IRF: - Continues to be appropriate. BELEN SONG MD at 1459 CC: [id number] DICTATION DATE: 10/18/19 0900 COMMUNICATION EQUIPMENT MECHANIC: 10/18/19 1028 ADM IN [facility] [address] [place] [address]
--- NOTE | 2019-10-22 18:24 | NUR ---
PT RESTING IN BED WITH EYES OPEN CALL LIGHT IN REACH WILL MONITER
--- NOTE | 2019-10-22 19:47 | NUR ---
AWAKE AND ALERT. SLIGHTLY CONFUSED. HAVING TROUBLE REMEMBERING HOW TO USE TELEPHONE. ASSISTANCE PROVIDED. RESPIRATIONS UNLABORED. SALINE LOCK TO RIGHT HAND INTACT. NO ACUTE DISTRESS NOTED.
[2019-10-22 20:00] VITALS: BP 133/58
--- NOTE | 2019-10-23 05:03 | NUR ---
RESTING IN BED AFTER RELIEF OF PAIN IN LEG. SEE MAR. RESPIRATIONS UNLABORED. NO DISTRESS NOTED.
--- NOTE | 2019-10-23 07:28 | NUR ---
AWAKE. ALERT AND ORIENTED. NO C/O PAIN. CL IN REACH.
[2019-10-23 07:34] VITALS: BP 118/46
[2019-10-23 09:33] LABS: HEMATOCRIT 30.9 % (36.0-48.0); HEMOGLOBIN 10.3 g/dL (12-16); MCH 30.1 pg (26.0-34.0); MCHC 33.3 g/dL (31.0-37.0); MCV 90.4 fL (80.0-100.0); RBC 3.42 10x6/uL (4.00-5.40); RDW 18.3 % (11.5-14.5); WBC 4.2 10x3/uL (4.8-10.8)
[2019-10-23 09:36] LABS: PLATELET COUNT 40 10x3/uL (130-400)
--- NOTE | 2019-10-23 09:37 | NUR ---
LAB REPORTED PLT CT 40.RESULTS GIVEN TO .
[2019-10-23 10:13] LABS: EOSINOPHILS 1 % (0-7); LYMPHOCYTES 23 % (15-50); MONOCYTES 10 % (2-11); NEUTROPHILS 65 % (40-80); PLATELET ESTIMATE DECREASED
--- NOTE | 2019-10-23 10:15 | NUR ---
MORE ORIENTED TODAY. SMALL AMT CONFUSION. NO DISTRESS NOTED.
--- NOTE | 2019-10-23 15:20 | NUR ---
NO CHANGE IN ASSESSMENT. RESTING WO DISTRESS. CL IN REACH.
--- NOTE | 2019-10-23 18:26 | NUR ---
MENTAL STATUS IMPROVED TODAY, AMMONIA LEVEL DECREASED TO 40 FROM 117 PREVIOUSLY.
--- NOTE | 2019-10-23 19:18 | NUR ---
PT LYING IN BED TALKING ON PHONE. CL IN REACH. DENIES NEEDS OR PAIN AT THIS TIME. BED IN LOW SIDE RAILS X2. BED ALARM ON. RESP EVEN AND UNLABORED. LUNGS CLEAR. BOWEL ACTIVE X4. A/O X4. WILL CONTINUE TO MONITOR.
[2019-10-23 19:43] VITALS: BP 120/75
--- NOTE | 2019-10-24 08:00 | NUR ---
ASSISTED PATIENT TO B/R, UP IN CHAIR EATING BREAKFAST, ASSESSMENT COMPLETE, DENIES ANY NEEDS AT THIS TIME, C/L AND FLUIDS IN REACH.
[2019-10-24 08:14] VITALS: BP 128/56
--- NOTE | 2019-10-24 12:00 | NUR ---
PATIENT RESTING IN BED WATCHING TV, DENIES ANY NEEDS AT THIS TIME, C/L AND FLUIDS IN REACH.
--- NOTE | 2019-10-24 17:05 | NUR ---
RESTING IN BED WITH EYES CLOSED, NO S/S OF DISTRESS NOTED, RESP EVEN AND UNLABORED, BED ALARM ON, C/L AND FLUIDS IN REACH.
--- NOTE | 2019-10-24 18:45 | NUR ---
BEDSIDE REPORT COMPLETE. PT LYING IN BED WATCHING TV. ALERT AND ORIENTED X3. DENIES ANY NEEDS OR PAIN. RIGHT HAND IV WITHOUT REDNESS OR SWELLING. SWAB CAP IN USE. DRESSING C/D/I. RIGHT BREAST IV WITHOUT REDNESS OR SWELLING. SWAB CAP IN USE. DRESSING C/D/I. BLE +3 EDEMA PETECHIAE NOTED. CALL LIGHT WITHIN REACH. BED ALARM ON. CPOC
[2019-10-24 21:15] VITALS: BP 119/54
[2019-10-24 21:53] VITALS: BP 119/54
--- NOTE | 2019-10-24 23:21 | NUR ---
PT LYING IN BED ON RIGHT SIDE EYES CLOSED RESTING COMFORTABLY. RR EVEN AND UNLABORED. CALL LIGHT WITHIN REACH. BED ALARM ON. CPOC
--- NOTE | 2019-10-25 03:49 | NUR ---
PT LYING IN BED ON RIGHT SIDE EYES CLOSED RESTING. RR EVEN AND UNLABORED. CALL LIGHT WITHIN REACH. BED ALARM ON. CPOC
--- NOTE | 2019-10-25 08:00 | NUR ---
UP IN CHAIR EATING BREAKFAST, DENIES ANY NEEDS AT THIS TIME, C/L AND FLUIDS IN REACH.
[2019-10-25 08:11] VITALS: BP 127/46
[2019-10-25 08:15] LABS: BASOPHILS 0.3 % (0-2); EOSINOPHILS 2.1 % (0-7); HEMATOCRIT 28.3 % (36.0-48.0); HEMOGLOBIN 9.1 g/dL (12-16); IMMATURE GRANULOCYTES 0.5 % (0-5); LYMPHOCYTES 18.3 % (15-50); MCH 29.2 pg (26.0-34.0); MCHC 32.2 g/dL (31.0-37.0); MCV 90.7 fL (80.0-100.0); NEUTROPHILS 61.8 % (40-80); RBC 3.12 10x6/uL (4.00-5.40); RDW 18.5 % (11.5-14.5); WBC 3.9 10x3/uL (4.8-10.8)
[2019-10-25 08:23] LABS: ANION GAP 8.1 mmol/L (8-16); CALCIUM 8.1 mg/dL (8.5-10.1); CARBON DIOXIDE 26.7 mmol/L (21.0-32.0); CREATININE - SERUM 1.3 mg/dL (0.6-1.3); POTASSIUM - SERUM 3.8 mmol/L (3.5-5.1)
[2019-10-25 08:31] LABS: PLATELET COUNT 22 10x3/uL (130-400)
--- NOTE | 2019-10-25 09:00 | NUR ---
ASSESSMENT COMPLETE, DENIES ANY NEEDS AT THIS TIME, C/L AND FLUIDS IN REACH.
--- NOTE | 2019-10-25 12:00 | NUR ---
PATIENT RESTING IN BED EATING LUNCH, DENIES ANY NEEDS AT THIS TIME, C/L AND FLUIDS IN REACH.
[2019-10-25 12:26] LABS: HYPOCHROMASIA OCC; PLATELET ESTIMATE DECREASED; ROULEAUX OCC
--- NOTE | 2019-10-25 16:00 | NUR ---
RESTING IN BED WITH EYES CLOSED, PLT BEING GIVEN VIA IV, RESP EVEN AND UNLABORED, NO S/S OF DISTRESS NOTED.
--- NOTE | 2019-10-25 18:48 | NUR ---
BEDSIDE REPORT COMPLETE. PT LYING IN BED ON RIGHT SIDE WATCHING TV. C/O NAUSEA ZOFRAN WAS GIVEN BY INOCENTE CHEN. DENIES ANY OTHER NEEDS OR PAIN. RIGHT HAND IV SALINE LOCKED. NO REDNESS OR SWELLING NOTED. DRESSING C/D/I. SWAB CAP INTACT. CALL LIGHT AND WATER WITHIN REACH. BED ALARM ON. CPOC
[2019-10-25 19:00] VITALS: BP 124/58
--- NOTE | 2019-10-26 01:22 | NUR ---
PT LYING IN BED EYES CLOSED RESTING COMFORTABLY. RR EVEN AND UNLABORED. CALL LIGHT WITHIN REACH. BED ALARM ON. CPOC
--- NOTE | 2019-10-26 03:00 | NUR ---
ASSISTED PT TO RESTROOM. SMALL AMOUNT OF BRIGHT RED BLOOD IN STOOL. WILL CONTINUE TO MONITOR
--- NOTE | 2019-10-26 05:33 | NUR ---
PT LYING IN BED ON RIGHT SIDE EYES CLOSE RESTING COMFORTABLY. RR EVEN AND UNLABORED. CALL LIGHT WITHIN REACH. BED ALARM ON. CPOC
--- NOTE | 2019-10-26 10:59 | NUR ---
I have reviewed this patient and I concur with the Shift Assessment completed by the Licensed Practical Nurse today this shift.
[2019-10-26 11:21] VITALS: BP 151/92
--- NOTE | 2019-10-26 14:30 | NUR ---
PT HAS HAD 2 LOOSE STOOLS TODAY AND NOTED TO HAVE BRIGHT RED BLOOD PRESENT. SAMPLE SENT TO LAB AND POSITIVE FOR BLOOD. DR. SONG NOTIFIED WHEN HE ROUNDED AND WAS TOLD TO LET DR. ADAME KNOW ABOUT IT. PAGE PUT IN TO DR. ADAME.
--- NOTE | 2019-10-26 17:53 | NUR ---
NO RESPONSE FROM DR. JOHNSTON.
--- NOTE | 2019-10-26 19:30 | NUR ---
AWAKE AND ALERT. RESTING IN BED WITH RESPIRATIONS UNLABORED. SALINE LOCKS TO LEFT WRIST AND RIGHT UPPER CHEST INTACT WITH NO SIGNS OF INFILTRATIONS. NO ACUTE DISTRESS NOTED.
[2019-10-26 20:39] VITALS: BP 129/40
--- NOTE | 2019-10-26 21:00 | NUR ---
SHOWER GIVEN PER PARTITION ASSEMBLER AND BED LINENS CHANGED. TOLERATED WELL.
--- NOTE | 2019-10-27 01:20 | NUR ---
RESTING IN BED WITH EYES CLOSED AND RESPIRAITONS UNLABORED. NO DISTRESS NOTED.
--- NOTE | 2019-10-27 04:12 | NUR ---
ASSISTED TO BATHROOM AND BACK TO BED. HAD MEDIUM LOOSE BLOODY STOOL. WILL CONTINUE TO MONITOR.
--- NOTE | 2019-10-27 05:15 | NUR ---
RESTING IN BED. SLEPT AT LONG INTERVALS . RESPIRATIONS UNLABORED. NO DISTRESS NOTED.
--- NOTE | 2019-10-27 07:35 | NUR ---
A/A/OX4. RESTING QUIETLY IN BED. DENIES ANY PAIN AT PRESENT TIME AND NO REQUESTS VOICED. SL PATENT TO RIGHT HAND AND RIGHT BREAST WITHOUT REDNESS OR EDEMA NOTED AT SITE. SIDERAILS UP X 2, CALL LIGHT IN REACH AND BED IN LOW LOCKED POSITION.
[2019-10-27 08:48] VITALS: BP 120/53
--- NOTE | 2019-10-27 09:20 | NUR ---
DR. JOHNSTON NOTIFIED OF STOOLS THAT ARE BRICK RED IN COLOR AND GEL CONSISTENCY. ORDER RECEIVED FOR STAT CBC AND STATES SHE WOULD BE UP HER SOON TO SEE HER.
[2019-10-27 09:55] LABS: BASOPHILS 0.2 % (0-2); HEMATOCRIT 27.4 % (36.0-48.0); HEMOGLOBIN 8.7 g/dL (12-16); IMMATURE GRANULOCYTES 0.2 % (0-5); LYMPHOCYTES 18.7 % (15-50); MCH 29.1 pg (26.0-34.0); MCHC 31.8 g/dL (31.0-37.0); MCV 91.6 fL (80.0-100.0); MONOCYTES 18.2 % (2-11); NEUTROPHILS 59.7 % (40-80); RBC 2.99 10x6/uL (4.00-5.40); RDW 18.9 % (11.5-14.5); WBC 4.3 10x3/uL (4.8-10.8)
[2019-10-27 10:01] LABS: PLATELET COUNT 33 10x3/uL (130-400)
--- NOTE | 2019-10-27 15:00 | NUR ---
I have reviewed this patient and I concur with the Shift Assessment completed by the Licensed Practical Nurse today this shift.
--- NOTE | 2019-10-27 18:20 | NUR ---
PT UP TO BATHROOM AND HAD STOOL. THIS TIME WAS NOT BLOODY IT HAS BEEN.
--- NOTE | 2019-10-27 19:44 | NUR ---
AWAKE AND ALERT. ASSISTED TO BATHROOM AND BACK TO BED. RESPIRATIONS UNLABORED. PETICHAEI NOTED IN BILATERAL LOWER EXTREMITIES. DR JOHNSTON ROUNDED TODAY AND IS FOLLOWING CLOSELY. MESSAGE WAS LEFT FOR DR SONG ON ROUNDING SHEET PER DAY SHIFT NURSE.
--- NOTE | 2019-10-28 01:28 | NUR ---
SLEEPING WITH RESPIRAITONS UNLABORED. NO DISTRESS NOTED.
--- NOTE | 2019-10-28 04:58 | NUR ---
QUIET HOURS. NO ACUTE CHANGES IN CONDITION THIS SHIFT. HAS HAD SOME SMALL LOOSE STOOLS. RESTING IN BED WITH NO DISTRESS NOTED.
[2019-10-28 06:21] LABS: ANION GAP 5.7 mmol/L (8-16); CALCIUM 7.9 mg/dL (8.5-10.1); CARBON DIOXIDE 29.7 mmol/L (21.0-32.0); CREATININE - SERUM 1.2 mg/dL (0.6-1.3); POTASSIUM - SERUM 3.4 mmol/L (3.5-5.1)
[2019-10-28 06:47] LABS: BASOPHILS 0.4 % (0-2); EOSINOPHILS 2.7 % (0-7); HEMATOCRIT 27.7 % (36.0-48.0); IMMATURE GRANULOCYTES 0.4 % (0-5); LYMPHOCYTES 23.4 % (15-50); MCH 29.6 pg (26.0-34.0); MCHC 32.5 g/dL (31.0-37.0); MCV 91.1 fL (80.0-100.0); MONOCYTES 19.2 % (2-11); NEUTROPHILS 53.9 % (40-80); RBC 3.04 10x6/uL (4.00-5.40); RDW 19.4 % (11.5-14.5); WBC 4.5 10x3/uL (4.8-10.8)
[2019-10-28 06:50] LABS: PLATELET COUNT 60 10x3/uL (130-400)
[2019-10-28 08:00] VITALS: BP 103/35
--- NOTE | 2019-10-28 09:22 | NUR ---
ALERT AND OREINTED. SITING UP IN ROOM. NO C/O PAIN. RESP EVEN AND UNLABORED. CL IN REACH.
--- NOTE | 2019-10-28 10:20 | NUR ---
REPORT GIVEN TO ANNE DANIEL. PATIENT TAKEN BY STAFF IN TO ROOM 2112. WILL BE ADMITTED TO DR SONG.
[2019-10-28 10:48] LABS: PLATELET ESTIMATE DECREASED
[2019-10-28 10:51] LABS: ANISOCYTOSIS OCC; HYPOCHROMASIA OCC; SMUDGE CELLS OCC
--- NOTE | 2019-10-28 11:19 | NUR ---
DUE TO CHANGE IN CONDITION PATIENT DISCHARGED FROM REHAB AND ADMITTED TO ACUTE FLOOR TODAY
== END 2019-10-28 10:22 | disposition short-term general hospital (02) | DRG 557 ==
LOC: D.REHAB 14:50
PROVIDERS: Internal Medicine Hematology & Oncology; ADMIT Emergency Medicine; ATTEND Emergency Medicine
DX: M62.50 Muscle wasting and atrophy, not elsewhere classified, unspecified site (principal); E43 Unspecified severe protein-calorie malnutrition; R18.8 Other ascites; D61.818 Other pancytopenia; D68.9 Coagulation defect, unspecified; F17.203 Nicotine dependence unspecified, with withdrawal; K74.60 Unspecified cirrhosis of liver; E66.01 Morbid (severe) obesity due to excess calories; D64.9 Anemia, unspecified; E87.8 Other disorders of electrolyte and fluid balance, not elsewhere classified; R53.1 Weakness; D69.6 Thrombocytopenia, unspecified; R53.81 Other malaise; E87.6 Hypokalemia; F32.9 Major depressive disorder, single episode, unspecified

== ENCOUNTER 2019-10-28 10:40 | Inpatient (IN) | payer MEDICAID ==
[~2019-10-28] VITALS: Ht 154.9 cm; Wt 104.3 kg
[2019-10-28 13:14] VITALS: BP 125/56
[2019-10-28 13:34] VITALS: BP 125/56; BMI 43.5
--- NOTE | 2019-10-28 15:32 | NUR ---
ALERT AND ORIENTED X4. ASSIST OOB TO RESTROOM WITH MINIMAL ASSISTANCE. DENIES PAIN OR SOB. ASSIST BACK TO BED. SCDs ON. CONTINUE PLAN OF CARE AND SAFETY PRECAUTIONS.
[2019-10-28 17:53] VITALS: BP 120/57
--- NOTE | 2019-10-28 19:00 | NUR ---
REPORT RECEIVED, WILL CONTINUE POC. PATIENT IS AAOX4, LYING IN SEMI-FOWLERS. POSITION. NO S/S OF DISTRESS OBSERVED, RR EVEN AND UNLABORED ON ROOM AIR. PATIENT DENIES NEEDS AT THIS TIME. CL IN REACH, BED LOCKED AND LOWERED. WILL CTM.
[2019-10-28 20:14] LABS: APTT 38.2 SECONDS (22.8-39.4); INR 2.01 (0.85-1.17); PROTIME 22.5 SECONDS (11.6-15.0)
[2019-10-28 20:22] VITALS: BP 113/54
--- NOTE | 2019-10-28 20:40 | NUR ---
PATIENT ON CL NEEDING TO USE RESTROOM. PATIENT HAD ALREADY HAD INCONTINENT BM. ASSISTED PATIENT TO BATHROOM, CHANGED PULL UP, PERFORMED PERICARE, CHANGED GOWN AND LINENS. ASSISTED PATIENT BACK TO BED AND ADMINISTERED HS MEDS. PATIENT DENIES FURTHER NEEDS AT THIS TIME.
--- NOTE | 2019-10-28 23:00 | NUR ---
PATIENT ASKED FOR BENADRYL FOR ITCHING, MEDICATION ADMINISTERED PER ORDERS.
[2019-10-29] VITALS: BP 115/47
--- NOTE | 2019-10-29 03:28 | NUR ---
I have reviewed this patient and I concur with the Shift Assessment completed by the Licensed Practical Nurse today this shift.
[2019-10-29 04:00] VITALS: BP 99/45
[2019-10-29 06:36] LABS: BASOPHILS 0.6 % (0-2); EOSINOPHILS 2.1 % (0-7); HEMATOCRIT 26.6 % (36.0-48.0); HEMOGLOBIN 8.7 g/dL (12-16); IMMATURE GRANULOCYTES 0.6 % (0-5); LYMPHOCYTES 25.3 % (15-50); MCH 29.5 pg (26.0-34.0); MCHC 32.7 g/dL (31.0-37.0); MCV 90.2 fL (80.0-100.0); MEAN PLATELET VOLUME 11.6 fL (7.4-10.4); MONOCYTES 19.1 % (2-11); NEUTROPHILS 52.3 % (40-80); PLATELET COUNT 54 10x3/uL (130-400); RBC 2.95 10x6/uL (4.00-5.40); RDW 19.2 % (11.5-14.5); WBC 5.1 10x3/uL (4.8-10.8)
[2019-10-29 07:05] LABS: ALBUMIN 1.5 g/dL (3.4-5.0); ANION GAP 7.4 mmol/L (8-16); BILIRUBIN - TOTAL 3.56 mg/dL (0.2-1.3); CALCIUM 7.7 mg/dL (8.5-10.1); CARBON DIOXIDE 29.5 mmol/L (21.0-32.0); POTASSIUM - SERUM 3.9 mmol/L (3.5-5.1); PROTEIN - SERUM 5.8 g/dL (6.4-8.2)
--- NOTE | 2019-10-29 07:20 | NUR ---
RECIEVE REPORT. ALERT AND ORIENTED X4. ASSIST OOB TO RESTROOM WITH MINIMAL ASSISTANCE.
[2019-10-29 07:26] LABS: INR 2.07 (0.85-1.17)
[2019-10-29 09:41] VITALS: BP 106/42
[2019-10-29 11:17] LABS: HEMOGLOBIN 9.2 g/dL (12-16)
[2019-10-29 13:24] VITALS: Ht 154.9 cm; Wt 104.3 kg
[2019-10-29 17:09] VITALS: BP 112/40
[2019-10-29 17:14] LABS: HEMATOCRIT 27.2 % (36.0-48.0); HEMOGLOBIN 8.9 g/dL (12-16)
--- NOTE | 2019-10-29 19:12 | NUR ---
RECEIVED BEDSIDE REPORT. PATIENT IS ALERT AND ORIENTED, RESTING COMFORTABLY IN BED. RESPIRATIONS ARE EVEN AND UNLABORED. NO S/S OF DISTRESS. NO C/O PAIN. CALL LIGHT WITHIN REACH. WILL CPOC.
[2019-10-29 20:00] VITALS: BP 102/41
[2019-10-29 23:41] LABS: HEMOGLOBIN 8.9 g/dL (12-16)
[2019-10-30] VITALS: BP 121/42
[2019-10-30 04:00] VITALS: BP 109/53
[2019-10-30 06:19] LABS: BASOPHILS 0.3 % (0-2); EOSINOPHILS 1.6 % (0-7); HEMOGLOBIN 8.4 g/dL (12-16); IMMATURE GRANULOCYTES 0.5 % (0-5); LYMPHOCYTES 25.3 % (15-50); MCH 30.3 pg (26.0-34.0); MCHC 33.6 g/dL (31.0-37.0); MCV 90.3 fL (80.0-100.0); MEAN PLATELET VOLUME 10.7 fL (7.4-10.4); MONOCYTES 19.9 % (2-11); NEUTROPHILS 52.4 % (40-80); RBC 2.77 10x6/uL (4.00-5.40); RDW 19.6 % (11.5-14.5)
[2019-10-30 06:24] LABS: PLATELET COUNT 40 10x3/uL (130-400); WBC 3.8 10x3/uL (4.8-10.8)
--- NOTE | 2019-10-30 06:40 | NUR ---
PAGED DR. JOHNSTON, REGARDING CRITICAL PLT OF 40. AWAITING RETURN CALL.
[2019-10-30 06:43] LABS: ALBUMIN 1.6 g/dL (3.4-5.0); ANION GAP 7.5 mmol/L (8-16); BILIRUBIN - TOTAL 3.3 mg/dL (0.2-1.3); CALCIUM 7.5 mg/dL (8.5-10.1); CARBON DIOXIDE 27.9 mmol/L (21.0-32.0); CREATININE - SERUM 1.2 mg/dL (0.6-1.3); MAGNESIUM - SERUM 1.6 mg/dL (1.8-2.4); POTASSIUM - SERUM 4.4 mmol/L (3.5-5.1)
--- NOTE | 2019-10-30 07:20 | NUR ---
RECIEVE REPORT. RESTING IN BED WITH EYES CLOSED. PAGED DUE TO PLATELET COUNT 40. NO SIGNS OF DISTRESS. CONTINUE PLAN OF CARE AND SAFETY PRECAUTIONS.
[2019-10-30 09:00] VITALS: BP 102/42
[2019-10-30 11:58] LABS: HEMATOCRIT 26.8 % (36.0-48.0); HEMOGLOBIN 9.1 g/dL (12-16)
--- NOTE | 2019-10-30 14:04 | MORECARE ---
CASE MANAGEMENT DISCHARGE SUMMARY PATIENT: OBIE JARAMILLO UNIT: [id number] ADM DATE: 10/28/19 AGE: 59 : 64 SEX: F ROOM/BED: D.2 AUTHOR: CHERRI LAZO PHYSICIAN: REFERRING PHYSICIAN: BELEN SONG MD DATE OF SERVICE: 10/30/19 Discharge Plan Patient Name: OBIE JARAMILLO [facility] [facility] 1960 Planned Disposition: Home Anticipated Discharge Date: Discharge Date: Expected LOS: Initial Reviewer: [email or web address] Initial Review Date: 10/30/2019 Generated: 10/30/19 3:03 pm Patient Name: OBIE JARAMILLO Page [id number] at 1404 All edits/amendments must be made on the electronic document DICTATION DATE: 10/30/19 140 REAL ESTATE LEASING MANAGER: CARMEN 10/30/19 1403 RPT#: [id number] DC DATE: STATUS: ADM IN [facility] [address] [place] [address] END OF REPORT
--- NOTE | 2019-10-30 14:15 | MORECARE ---
CASE MANAGEMENT DISCHARGE SUMMARY PATIENT: OBIE JARAMILLO UNIT: [id number] ADM DATE: 10/28/19 AGE: 59 : 64 SEX: F ROOM/BED: D.[facility] [place][note 2]2 AUTHOR: CHERRI LAZO PHYSICIAN: REFERRING PHYSICIAN: BELEN SONG MD DATE OF SERVICE: 10/30/19 Discharge Plan Patient Name: OBIE JARAMILLO [facility] [facility] 1960 Planned Disposition: Home Anticipated Discharge Date: Discharge Date: Expected LOS: Initial Reviewer: [email or web address] Initial Review Date: 10/30/2019 Generated: 10/30/19 3:14 pm DCPIA - Discharge Planning Initial Assessment Updated by [email or web address]: Stephanie Arroyo on 10/30/19 2:03 pm * Is the patient Alert and Oriented? Yes * How many steps to enter\exit or inside your home? 1/0 * PCP Dr. Mitchell * Pharmacy [place] * Preadmission Environment Acute Inpatient Rehab * Facility Name [facility] inpatient rehab * ADLs Independent * Equipment None * List name and contact numbers for known caregivers / representatives who currently or will assist patient after discharge: Valentin Yan [facility] [phone] Karenanup Yan [facility] [phone] * Verbal permission to speak to the caregivers and representatives has been obtained from the patient. Yes * Community resources currently utilized None * Additional services required to return to the preadmission environment? No * Can the patient safely return to the preadmission environment? Yes * Has this patient been hospitalized within the prior 30 days at any hospital? Yes Last DP export: 10/30/19 1:04 pm Patient Name: OBIE JARAMILLO Page [id number] at 1415 All edits/amendments must be made on the electronic document DICTATION DATE: 10/30/19 141 DIRECTOR OF PEOPLE: CARMEN 10/30/19 1414 RPT#: [id number] DC DATE: STATUS: ADM IN [facility] [address] [place] [address] END OF REPORT
--- NOTE | 2019-10-30 14:25 | MORECARE ---
CASE MANAGEMENT DISCHARGE SUMMARY PATIENT: OBIE JARAMILLO UNIT: [id number] ADM DATE: 10/28/19 AGE: 59 : 64 SEX: F ROOM/BED: D.0522 AUTHOR: VIOLET,DOC PHYSICIAN: REFERRING PHYSICIAN: BELEN SONG MD DATE OF SERVICE: 10/30/19 Discharge Plan Patient Name: OBIE JARAMILLO Facility: [facility]:[place] : 1960 Planned Disposition: Home Anticipated Discharge Date: Discharge Date: Expected LOS: Initial Reviewer: [email or web address] Initial Review Date: 10/30/2019 Generated: 10/30/19 3:25 pm Comments DCP- Discharge Planning Updated by [email or web address]: Stephanie Arroyo on 10/30/19 1:[address] Patient Name: OBIE JARAMILLO Admission Status: Urgent Accout number: [id number] Admission Date: 10-28-2019 : 1960 Admission Diagnosis:UNSPECIFIED CIRRHOSIS OF LIVER Attending: VICENTE SONG Current LOS: 2 Anticipated DC Date: Planned Disposition: Home Primary Insurance: [place] PRIVATE OPTIONS DEV Discharge Planning Comments: CM met with patient to complete initial dc planning assessment. CM educated patient on the CM role and verbal consent given by patient to complete assessment. Patient lives at home alone, address and phone number verified per face sheet. At discharge patient plans to return and feels this is a safe discharge. CM discussed availability of home health, rehab services, and medical equipment. Patient denied known discharge needs at this time. She had just been in inpatient rehab and was ready for dc when readmitted to acute care. She states her brother or MEGAN will drive her home on discharge. CM will continue to follow and will assist as needed with dc plans/needs. Production Wood Craftsman: Stephanie Arroyo DCPIA - Discharge Planning Initial Assessment Updated by [email or web address]: Stephanie Arroyo on 10/30/19 2:03 pm * Is the patient Alert and Oriented? Yes * How many steps to enter\exit or inside your home? 1/0 * PCP Dr. Mitchell * [facility] * Preadmission Environment Acute Inpatient Rehab * Facility Name [facility] inpatient rehab * ADLs Independent * Equipment None * List name and contact numbers for known caregivers / representatives who currently or will assist patient after discharge: Valentin best - [phone] Karen GUZMAN - [phone] * Verbal permission to speak to the caregivers and representatives has been obtained from the patient. Yes * Community resources currently utilized None * Additional services required to return to the preadmission environment? No * Can the patient safely return to the preadmission environment? Yes * Has this patient been hospitalized within the prior 30 days at any hospital? Yes Coverage Notice Reviewer: [id number] Kizzy Arroyo Notice Issued Date-Time: 10/30/2019 14:17 Notice Type: Patient Choice Letter Notice Delivered To: Patient Relationship to Patient: Self Mold Press Operator Name: Delivery Method: HAND - Hand Delivered Susana Days: Prior Verbal Notification: Recipient Understood Notice: Yes Recipient Signature: Yes Med Rec Note Co-signed by Attending: Coverage Notice Comment: Declines HHS, SNF or rehab Last DP export: 10/30/19 1:15 pm Patient Name: OBIE JARAMILLO Page [phone] at 1425 All edits/amendments must be made on the electronic document DICTATION DATE: 10/30/19 1425 FLEX O WRITER OPERATOR: CARMEN 10/30/19 1425 RPT#: [id number] DC DATE: STATUS: ADM IN [facility] [address] [place] [address] END OF REPORT
--- NOTE | 2019-10-30 15:17 | NUR ---
ALERT AND ORIENTED X4. ASSIST UP TO RESTROOM. BLOOD SEEN IN STOOL. NOTIFY JOSUE GU OF FINDINGS. ORDER TO INITIATE STAT TRANSFER TO HIGH LEVEL OF CARE FOR GI BLEED.
--- NOTE | 2019-10-30 15:39 | MORECARE ---
CASE MANAGEMENT DISCHARGE SUMMARY PATIENT: OBIE JARAMILLO UNIT: [id number] ADM DATE: 10/28/19 AGE: 59 : 64 SEX: F ROOM/BED: D.0102 AUTHOR: VIOLET,DOC PHYSICIAN: REFERRING PHYSICIAN: BELEN SONG MD DATE OF SERVICE: 10/30/19 Discharge Plan Patient Name: OBIE JARAMILLO [facility] : 1960 Planned Disposition: Home Anticipated Discharge Date: Discharge Date: Expected LOS: Initial Reviewer: [email or web address] Initial Review Date: 10/30/2019 Generated: 10/30/19 4:38 pm Comments DCP- Discharge Planning Updated by [email or web address]: Stephanie Arroyo on 10/30/19 1:[address] Patient Name: OBIE JARAMILLO Admission Status: Urgent Accout number: [id number] Admission Date: 10-28-2019 : 1960 Admission Diagnosis:UNSPECIFIED CIRRHOSIS OF LIVER Attending: VICENTE SONG Current LOS: 2 Anticipated DC Date: Planned Disposition: Home Primary Insurance: [place] PRIVATE OPTIONS DEV Discharge Planning Comments: CM met with patient to complete initial dc planning assessment. CM educated patient on the CM role and verbal consent given by patient to complete assessment. Patient lives at home alone, address and phone number verified per face sheet. At discharge patient plans to return and feels this is a safe discharge. CM discussed availability of home health, rehab services, and medical equipment. Patient denied known discharge needs at this time. She had just been in inpatient rehab and was ready for dc when readmitted to acute care. She states her brother or MEGAN will drive her home on discharge. CM will continue to follow and will assist as needed with dc plans/needs. Alloy Weigher: Stephanie Arroyo DCPIA - Discharge Planning Initial Assessment Updated by [email or web address]: Stephanie Arroyo on 10/30/19 2:03 pm * Is the patient Alert and Oriented? Yes * How many steps to enter\exit or inside your home? 1/0 * PCP Dr. Mitchell * [facility] * Preadmission Environment Acute Inpatient Rehab * Facility Name [facility] inpatient [facility] * ADLs Independent * Equipment None * List name and contact numbers for known caregivers / representatives who currently or will assist patient after discharge: Valentin best - [phone] Karen GUZMAN [phone] * Verbal permission to speak to the caregivers and representatives has been obtained from the patient. Yes * Community resources currently utilized None * Additional services required to return to the preadmission environment? No * Can the patient safely return to the preadmission environment? Yes * Has this patient been hospitalized within the prior 30 days at any hospital? Yes External Providers External Provider: [facility] Next Contact Date: Service Request Date: Service Type: Resolution: Reviewer: Comments: Coverage Notice Reviewer: [id number] - Stephanie Arroyo Notice Issued Date-Time: 10/30/2019 14:17 Notice Type: Patient Choice Letter Notice Delivered To: Patient Relationship to Patient: Self Premium Auditor Name: Delivery Method: HAND - Hand Delivered Susana Days: Prior Verbal Notification: Recipient Understood Notice: Yes Recipient Signature: Yes Med Rec Note Co-signed by Attending: Coverage Notice Comment: Declines HHS, SNF or rehab Last DP export: 10/30/19 1:25 pm Patient Name: OBIE JARAMILLO Page [phone] at 1539 All edits/amendments must be made on the electronic document DICTATION DATE: 10/30/191538 GROUP LEADER SEMICONDUCTOR PROCESSING: CARMEN 10/30/191538 RPT#: [id number] DC DATE: STATUS: ADM IN [facility] [address] [place] [address] END OF REPORT
--- NOTE | 2019-10-30 15:48 | MORECARE ---
CASE MANAGEMENT DISCHARGE SUMMARY PATIENT: OBIE JARAMILLO UNIT: [id number] ADM DATE: 10/28/19 AGE: 59 : 64 SEX: F ROOM/BED: D.0483 AUTHOR: CHERRI LAZO PHYSICIAN: REFERRING PHYSICIAN: BELEN SONG MD DATE OF SERVICE: 10/30/19 Discharge Plan Patient Name: OBIE JARAMILLO Facility: [facility]:[place] : 1960 Planned Disposition: Home Anticipated Discharge Date: Discharge Date: Expected LOS: Initial Reviewer: [email or web address] Initial Review Date: 10/30/2019 Generated: 10/30/19 4:48 pm Comments DCP- Discharge Planning Updated by [email or web address]: Stephanie Arroyo on 10/30/19 2:[address] Primary nurse states that Emma Burris has asked this patient be transferred to [facility] for GIB. I called Arcelia, supervisor maple products and she states ok to call transfer team. I called the transfer team and spoke with Nancy. Face sheet and H&P faxed to the transfer team. educational technology coordinator getting COBRA form and ambulance form. DCP- Discharge Planning Updated by [email or web address]: Stephanie Felizmaddy on 10/30/19 1:[address] Patient Name: OBIE AJRAMILLO Admission Status: Urgent Accout number: [id number] Admission Date: 10-28-2019 : 1960 Admission Diagnosis:UNSPECIFIED CIRRHOSIS OF LIVER Attending: VICENTE SONG Current LOS: 2 Anticipated DC Date: Planned Disposition: Home Primary Insurance: [place] PRIVATE OPTIONS [facility] Discharge Planning Comments: CM met with patient to complete initial dc planning assessment. CM educated patient on the CM role and verbal consent given by patient to complete assessment. Patient lives at home alone, address and phone number verified per face sheet. At discharge patient plans to return and feels this is a safe discharge. CM discussed availability of home health, rehab services, and medical equipment. Patient denied known discharge needs at this time. She had just been in inpatient rehab and was ready for dc when readmitted to acute care. She states her brother or MEGAN will drive her home on discharge. CM will continue to follow and will assist as needed with dc plans/needs. Bulk System Operator: Stephanie Arroyo DCPIA - Discharge Planning Initial Assessment Updated by [email or web address]: Stephanie Arroyo on 10/30/19 2:03 pm * Is the patient Alert and Oriented? Yes * How many steps to enter\exit or inside your home? 1/0 * PCP Dr. Mitchell * [facility] * Preadmission Environment Acute Inpatient Rehab * Facility Name [facility] inpatient rehab * ADLs Independent * Equipment None * List name and contact numbers for known caregivers / representatives who currently or will assist patient after discharge: Valentin best - [phone] Karen GUZMAN [phone] * Verbal permission to speak to the caregivers and representatives has been obtained from the patient. Yes * Community resources currently utilized None * Additional services required to return to the preadmission environment? No * Can the patient safely return to the preadmission environment? Yes * Has this patient been hospitalized within the prior 30 days at any hospital? Yes Coverage Notice Reviewer: [id number] - Stephanie Arroyo Notice Issued Date-Time: 10/30/2019 14:17 Notice Type: Patient Choice Letter Notice Delivered To: Patient Relationship to Patient: Self Strategic Marketing Leader Name: Delivery Method: HAND - Hand Delivered Susana Days: Prior Verbal Notification: Recipient Understood Notice: Yes Recipient Signature: Yes Med Rec Note Co-signed by Attending: Coverage Notice Comment: Declines HHS, SNF or rehab Last DP export: 10/30/19 2:39 pm Patient Name: OBIE JARAMILLO Page [phone] at 1548 All edits/amendments must be made on the electronic document DICTATION DATE: 10/30/19 1548 POLICY CHECKER: CARMEN 10/30/19 1548 RPT#: [id number] DC DATE: STATUS: ADM IN [facility] [address] [facility] [place] [address] END OF REPORT
[2019-10-30 17:04] LABS: HEMATOCRIT 26.6 % (36.0-48.0); HEMOGLOBIN 8.9 g/dL (12-16)
[2019-10-30 17:08] VITALS: BP 108/46
--- NOTE | 2019-10-30 19:36 | NUR ---
RECEIVED BEDSIDE REPORT. PATIENT IS ALERT AND ORIENTED, RESTING COMFORTABLY IN BED. RESPIRATIONS ARE EVEN AND UNLABORED. NO S/S OF DISTRESS. NO C/O PAIN. CALL LIGHT WITHIN REACH.
[2019-10-30 20:00] VITALS: BP 118/39
--- NOTE | 2019-10-30 20:10 | NUR ---
RECEIVED CALL FROM DR. PRAKASH. HE WAS INQUIRING ABOUT PATIENT HEMOGLOBIN. RECEIVED ORDER FOR A STAT HGB, HGB AT 0000 10/31/19, NOTIFY DISEASE EDUCATION SPECIALIST IF HGB IS LESS THAN 8.
--- NOTE | 2019-10-31 01:20 | NUR ---
PATIENT CALLED NURSE TO ROOM. PATIENT HAD A BOWEL MOVEMENT. PATIENT WANTED MAKE SURE I SAW THAT SHE HAD A SCANT AMOUNT OF BLOOD ON THE TOLIET TISSUE.
[2019-10-31 06:10] LABS: HEPATITIS C ANTIBODY 0.4 S/CO RAT (0.0-0.9)
--- NOTE | 2019-10-31 06:24 | NUR ---
REPORTED TO NURSE THAT THERE WAS BLOOD IN THE PATIENT COMMODE. UNSURE OF AMOUNT DUE TO PATIENT ALSO URINATED.
[2019-10-31 06:53] LABS: BASOPHILS 0.5 % (0-2); HEMATOCRIT 28.6 % (36.0-48.0); HEMOGLOBIN 9.6 g/dL (12-16); IMMATURE GRANULOCYTES 1.6 % (0-5); LYMPHOCYTES 23.2 % (15-50); MCH 30.4 pg (26.0-34.0); MCHC 33.6 g/dL (31.0-37.0); MCV 90.5 fL (80.0-100.0); MONOCYTES 13.3 % (2-11); NEUTROPHILS 59.4 % (40-80); RBC 3.16 10x6/uL (4.00-5.40); RDW 20.3 % (11.5-14.5)
[2019-10-31 07:01] LABS: WBC 5.6 10x3/uL (4.8-10.8)
[2019-10-31 07:02] LABS: PLATELET COUNT 47 10x3/uL (130-400)
[2019-10-31 07:08] LABS: ANION GAP 8.2 mmol/L (8-16); BILIRUBIN - TOTAL 4.16 mg/dL (0.2-1.3); CARBON DIOXIDE 28.2 mmol/L (21.0-32.0); CREATININE - SERUM 1.2 mg/dL (0.6-1.3); MAGNESIUM - SERUM 1.9 mg/dL (1.8-2.4); PHOSPHOROUS 3.1 mg/dL (2.5-4.9); POTASSIUM - SERUM 4.4 mmol/L (3.5-5.1); PROTEIN - SERUM 7.1 g/dL (6.4-8.2)
[2019-10-31 09:37] VITALS: BP 116/40
[2019-10-31 10:51] LABS: PLATELET ESTIMATE DECREASED
[2019-10-31 10:53] LABS: HYPOCHROMASIA OCC; ROULEAUX OCC
--- NOTE | 2019-10-31 13:27 | MORECARE ---
CASE MANAGEMENT DISCHARGE SUMMARY PATIENT: OBIE JARAMILLO UNIT: [id number] ADM DATE: 10/28/19 AGE: 59 : 64 SEX: F ROOM/BED: D.3282 AUTHOR: VIOLETDOC PHYSICIAN: REFERRING PHYSICIAN: BELEN SONG MD DATE OF SERVICE: 10/31/19 Discharge Plan Patient Name: OBIE JARAMILLO Facility: [facility]:[place] : 1960 Planned Disposition: Home Anticipated Discharge Date: Discharge Date: Expected LOS: Initial Reviewer: [email or web address] Initial Review Date: 10/30/2019 Generated: 10/31/19 2:26 pm Comments DCP- Discharge Planning Updated by [email or web address]: Stephanie Arroyo on 10/31/19 12:[address] I spoke with James with the transfer team a couple hours ago and informed him that Kameron had spoken to Dr. Lolis Sharma and they will accept the patient at [facility]. James states he will find out what the problem is with the transfer. I did not hear back, so I spoke with Nancy at the transfer center and she states [facility] has not received transfer back agreement. We have not received the transfer back agreement so I called [facility] transfer center and spoke to Toño at [phone] and he will fax it to telehealth case manager fax. DCP- Discharge Planning Updated by [id number]: Stephanie Dina on 10/30/19 2:[address] Primary nurse states that Emma Burris has asked this patient be transferred to [facility] for GIB. I called Arcelia, supervisor machining and she states ok to call transfer team. I called the transfer team and spoke with Nancy. Face sheet and H&P faxed to the transfer team. in school suspension coordinator getting COBRA form and ambulance form. DCP- Discharge Planning Updated by [email or web address]: Stephanie Felizmaddy on 10/30/19 1:[address] Patient Name: OBIE JARAMILLO Admission Status: Urgent Accout number: [id number] Admission Date: 10-28-2019 : 1960 Admission Diagnosis:UNSPECIFIED CIRRHOSIS OF LIVER Attending: VICENTE SONG Current LOS: 2 Anticipated DC Date: Planned Disposition: Home Primary Insurance: [place] PRIVATE OPTIONS DEV Discharge Planning Comments: CM met with patient to complete initial dc planning assessment. CM educated patient on the CM role and verbal consent given by patient to complete assessment. Patient lives at home alone, address and phone number verified per face sheet. At discharge patient plans to return and feels this is a safe discharge. CM discussed availability of home health, rehab services, and medical equipment. Patient denied known discharge needs at this time. She had just been in inpatient rehab and was ready for dc when readmitted to acute care. She states her brother or MEGAN will drive her home on discharge. CM will continue to follow and will assist as needed with dc plans/needs. Source Water Protection Specialist: Stephanie Arroyo DCPIA - Discharge Planning Initial Assessment Updated by [id number]: Stephanie Arroyo on 10/30/19 2:03 pm * Is the patient Alert and Oriented? Yes * How many steps to enter\exit or inside your home? 1/0 * PCP Dr. Mitchell * Pharmacy [place] * Preadmission Environment Acute Inpatient Rehab * Facility Name [facility] inpatient rehab * ADLs Independent * Equipment None * List name and contact numbers for known caregivers / representatives who currently or will assist patient after discharge: Valentin Durand brothzeina - [phone] Karen GUZMAN - [phone] * Verbal permission to speak to the caregivers and representatives has been obtained from the patient. Yes * Community resources currently utilized None * Additional services required to return to the preadmission environment? No * Can the patient safely return to the preadmission environment? Yes * Has this patient been hospitalized within the prior 30 days at any hospital? Yes Coverage Notice Reviewer: [id number] - Stephanie Arroyo Notice Issued Date-Time: 10/30/2019 14:17 Notice Type: Patient Choice Letter Notice Delivered To: Patient Relationship to Patient: Self Associate Professor Of Literature Name: Delivery Method: HAND - Hand Delivered Susana Days: Prior Verbal Notification: Recipient Understood Notice: Yes Recipient Signature: Yes Med Rec Note Co-signed by Attending: Coverage Notice Comment: Declines HHS, SNF or rehab Last DP export: 10/30/19 2:48 pm Patient Name: OBIE JARAMILLO Page 85070 at 1327 All edits/amendments must be made on the electronic document DICTATION DATE: 10/31/191325 DELI MANAGER: CARMEN 10/31/19 1326 RPT#: [id number] [place] DATE: STATUS: ADM IN [facility] [address] [place] [address] END OF REPORT
--- NOTE | 2019-10-31 16:19 | NUR ---
CALLED TRANSFER CENTER AND SPOKE TO CESIA. PER CESIA, PAPERWORK WAS RECEIVED AND NOW PENDING BED. [place] PAPERWORK HAS BEEN COMPLETED AND IN CUBBY WITH CHART.
--- NOTE | 2019-10-31 16:37 | MORECARE ---
CASE MANAGEMENT DISCHARGE SUMMARY PATIENT: OBIE JARAMILLO UNIT: [id number] ADM DATE: 10/28/19 AGE: 59 : 64 SEX: F ROOM/BED: D.2822 AUTHOR: CHERRI LAZO PHYSICIAN: REFERRING PHYSICIAN: BELEN SONG MD DATE OF SERVICE: 10/31/19 Discharge Plan Patient Name: OBIE JARAMILLO Facility: [facility]:[place] : 1960 Planned Disposition: Home Anticipated Discharge Date: Discharge Date: Expected LOS: Initial Reviewer: [email or web address] Initial Review Date: 10/30/2019 Generated: 10/31/19 5:36 pm Comments DCP- Discharge Planning Updated by [email or web address]: Stephanie Arroyo on 10/31/19 3:[address] Nancy with the transfer center called and states that [facility] has received the transfer back agreement, we are now awaiting bed availability. DCP- Discharge Planning Updated by [email or web address]: Stephanie Arroyo on 10/31/19 12:[address] I spoke with James with the transfer team a couple hours ago and informed him that Kameron had spoken to Dr. Lolis Sharma and they will accept the patient at [facility]. James states he will find out what the problem is with the transfer. I did not hear back, so I spoke with Nancy at the transfer center and she states [facility] has not received transfer back agreement. We have not received the transfer back agreement so I called [facility] transfer center and spoke to Toño at [phone] and he will fax it to counter caser fax. DCP- Discharge Planning Updated by [id number]: Stephanie Arroyo on 10/30/19 2:[address] Primary nurse states that Emma Burris has asked this patient be transferred to [facility] for GIB. I called Arcelia, substation electrician supervisor and she states ok to call transfer team. I called the transfer team and spoke with Nancy. Face sheet and H&P faxed to the transfer team. import coordinator getting COBRA form and ambulance form. DCP- Discharge Planning Updated by [email or web address]: Stephanie Arroyo on 10/30/19 1:[address] Patient Name: OBIE JARAMILLO Admission Status: Urgent Accout number: [id number] Admission Date: 10-28-2019 : 1960 Admission Diagnosis:UNSPECIFIED CIRRHOSIS OF LIVER Attending: VICENTE SONG Current LOS: 2 Anticipated DC Date: Planned Disposition: Home Primary Insurance: [place] PRIVATE OPTIONS DEV Discharge Planning Comments: CM met with patient to complete initial dc planning assessment. CM educated patient on the CM role and verbal consent given by patient to complete assessment. Patient lives at home alone, address and phone number verified per face sheet. At discharge patient plans to return and feels this is a safe discharge. CM discussed availability of home health, rehab services, and medical equipment. Patient denied known discharge needs at this time. She had just been in inpatient rehab and was ready for dc when readmitted to acute care. She states her brother or MEGAN will drive her home on discharge. CM will continue to follow and will assist as needed with dc plans/needs. Mis Manager: Stephanie Arroyo DCPIA - Discharge Planning Initial Assessment Updated by [email or web address]: Stephanie Arroyo on 10/30/19 2:03 pm * Is the patient Alert and Oriented? Yes * How many steps to enter\exit or inside your home? 1/0 * PCP Dr. Mitchell * Pharmacy [place] * Preadmission Environment Acute Inpatient Rehab * Facility Name [facility] inpatient rehab * ADLs Independent * Equipment None * List name and contact numbers for known caregivers / representatives who currently or will assist patient after discharge: Valentin Durand brother - [phone] Karen GUZMAN - [phone] * Verbal permission to speak to the caregivers and representatives has been obtained from the patient. Yes * Community resources currently utilized None * Additional services required to return to the preadmission environment? No * Can the patient safely return to the preadmission environment? Yes * Has this patient been hospitalized within the prior 30 days at any hospital? Yes Coverage Notice Reviewer: [id number] - Stephanie Arroyo Notice Issued Date-Time: 10/30/2019 14:17 Notice Type: Patient Choice Letter Notice Delivered To: Patient Relationship to Patient: Self Cattle And Wheat Farmer Name: Delivery Method: HAND - Hand Delivered Susana Days: Prior Verbal Notification: Recipient Understood Notice: Yes Recipient Signature: Yes Med Rec Note Co-signed by Attending: Coverage Notice Comment: Declines HHS, SNF or rehab Reviewer: [id number] Kizzy Arroyo Notice Issued Date-Time: 10/31/2019 14:30 Notice Type: IM Discharge Notice Notice Delivered To: Patient Relationship to Patient: Self Cattle And Wheat Farmer Name: Delivery Method: HAND - Hand Delivered Susana Days: Prior Verbal Notification: Recipient Understood Notice: Yes Recipient Signature: Yes Med Rec Note Co-signed by Attending: Coverage Notice Comment: IMM EXPLAINED, SIGNED, GIVEN, COPY PLACED IN MR Last DP export: 10/31/19 12:26 pm Patient Name: OBIE JARAMILLO Page 14658 at 1637 All edits/amendments must be made on the electronic document DICTATION DATE: 10/31/191635 SUPERVISOR MICROBIOLOGY TECHNOLOGISTS: CARMEN 10/31/191635 RPT#: [id number] DC DATE: STATUS: ADM IN [facility] [address] [place] [address] END OF REPORT
--- NOTE | 2019-10-31 17:43 | NUR ---
FAMILY AT SIDE. WITHOUT CHANGES OR DITRESS NOTED AT THIS TIME. DENIES NEEDS
--- NOTE | 2019-10-31 19:00 | NUR ---
REPORT RECEIVED, WILL CONTINUE POC. PATIENT IS AAOX4, SITTING UP IN CHAIR. NO S/S OF DISTRESS OBSERVED, RR EVEN AND UNLABORED ON ROOM AIR. PIV TO RT HAND, SL. PATIENT IS TRANSFERRING TO ANOTHER FACILITY. WILL CALL REPORT TO RECEIVING NURSE. PATIENT DENIES FURTHER NEEDS AT THIS TIME. CL IN REACH, BED LOCKED AND LOWERED. WILL CTM.
--- NOTE | 2019-10-31 19:46 | NUR ---
CALLED REPORT TO MARÍA KUO AT [phone] [facility] PATIENT IS GOING TO ROOM F603.
--- NOTE | 2019-10-31 21:38 | NUR ---
PATIENT DC'D VIA EMS. DISCHARGE PAPERS SIGNED, REQUIRED PAPERWORK GIVEN TO EMS. COPIES IN CHART.
--- NOTE | 2019-11-01 09:02 | MORECARE ---
CASE MANAGEMENT DISCHARGE SUMMARY PATIENT: OBIE JARAMILLO UNIT: [id number] ADM DATE: 10/28/19 AGE: 59 : 64 SEX: F ROOM/BED: D.9362 AUTHOR: CHERRI LAZO PHYSICIAN: REFERRING PHYSICIAN: BELEN SONG MD DATE OF SERVICE: 11/01/19 Discharge Plan Patient Name: OBIE JARAMILLO Facility: [facility]:[place] : 1960 Planned Disposition: Home Anticipated Discharge Date: Discharge Date: 10/31/2019 Expected LOS: Initial Reviewer: [email or web address] Initial Review Date: 10/30/2019 Generated: 11/01/19 10:01 am Comments DCP- Discharge Planning Updated by [id number]: Stephanie Aroryo on 10/31/19 3:[address] Nancy with the transfer center called and states that [facility] has received the transfer back agreement, we are now awaiting bed availability. DCP- Discharge Planning Updated by [email or web address]: Stephanie Arroyo on 10/31/19 12:[address] I spoke with James with the transfer team a couple hours ago and informed him that Kameron had spoken to Dr. Lolis Sharma and they will accept the patient at [facility]. James states he will find out what the problem is with the transfer. I did not hear back, so I spoke with Nancy at the transfer center and she states [facility] has not received transfer back agreement. We have not received the transfer back agreement so I called [facility] transfer center and spoke to Toño at [phone] and he will fax it to field case manager fax. DCP- Discharge Planning Updated by [id number]: Stephanie Arroyo on 10/30/19 2:[address] Primary nurse states that Emma Burris has asked this patient be transferred to [facility] for GIB. I called Arcelia, supervisor electronics processing and she states ok to call transfer team. I called the transfer team and spoke with Nancy. Face sheet and H&P faxed to the transfer team. human resources benefits coordinator getting COBRA form and ambulance form. DCP- Discharge Planning Updated by [id number]: Stephanie Arroyo on 10/30/19 1:[address] Patient Name: OBIE JARAMILLO Admission Status: Urgent Accout number: [id number] Admission Date: 10-28-2019 : 1960 Admission Diagnosis:UNSPECIFIED CIRRHOSIS OF LIVER Attending: VICENTE SONG Current LOS: 2 Anticipated DC Date: Planned Disposition: Home Primary Insurance: [place] PRIVATE OPTIONS DEV Discharge Planning Comments: CM met with patient to complete initial dc planning assessment. CM educated patient on the CM role and verbal consent given by patient to complete assessment. Patient lives at home alone, address and phone number verified per face sheet. At discharge patient plans to return and feels this is a safe discharge. CM discussed availability of home health, rehab services, and medical equipment. Patient denied known discharge needs at this time. She had just been in inpatient rehab and was ready for dc when readmitted to acute care. She states her brother or MEGAN will drive her home on discharge. CM will continue to follow and will assist as needed with dc plans/needs. Industrial Organization Manager: Stephanie Arroyo DCPIA - Discharge Planning Initial Assessment Updated by [email or web address]: Stephanie Arroyo on 10/30/19 2:03 pm * Is the patient Alert and Oriented? Yes * How many steps to enter\exit or inside your home? 1/0 * PCP Dr. Mitchell * Pharmacy [place] * Preadmission Environment Acute Inpatient Rehab * Facility Name [facility] inpatient rehab * ADLs Independent * Equipment None * List name and contact numbers for known caregivers / representatives who currently or will assist patient after discharge: Valentin Durand brother - [phone] Karen GUZMAN - [phone] * Verbal permission to speak to the caregivers and representatives has been obtained from the patient. Yes * Community resources currently utilized None * Additional services required to return to the preadmission environment? No * Can the patient safely return to the preadmission environment? Yes * Has this patient been hospitalized within the prior 30 days at any hospital? Yes Coverage Notice Reviewer: [id number] - Stephanie Arroyo Notice Issued Date-Time: 10/30/2019 14:17 Notice Type: Patient Choice Letter Notice Delivered To: Patient Relationship to Patient: Self Manager Category Name: Delivery Method: HAND - Hand Delivered Susana Days: Prior Verbal Notification: Recipient Understood Notice: Yes Recipient Signature: Yes Med Rec Note Co-signed by Attending: Coverage Notice Comment: Declines HHS, SNF or rehab Last DP export: 10/31/19 3:37 pm Patient Name: OBIE JARAMILLO Page 39415 at 0902 All edits/amendments must be made on the electronic document DICTATION DATE: 11/01/19900 SHOP CLERK: CARMEN 11/01/19900 RPT#: [id number] DC DATE:10/31/19 STATUS: DIS IN [facility] [address] [place] [address] END OF REPORT
== END 2019-10-31 21:39 | disposition short-term general hospital (02) | DRG 432 ==
LOC: D.M2 10:40
PROVIDERS: Emergency Medicine; Family Medicine; ADMIT Emergency Medicine; ATTEND Emergency Medicine
DX: K74.60 Unspecified cirrhosis of liver (principal); E43 Unspecified severe protein-calorie malnutrition; D61.818 Other pancytopenia; Z68.41 Body mass index [BMI] 40.0-44.9, adult; F17.203 Nicotine dependence unspecified, with withdrawal; E87.1 Hypo-osmolality and hyponatremia; R18.8 Other ascites; K92.2 Gastrointestinal hemorrhage, unspecified; E87.6 Hypokalemia; D64.9 Anemia, unspecified

== ENCOUNTER 2019-11-02 18:25 | Inpatient (IN) | payer MEDICAID ==
[~2019-11-02] VITALS: Ht 154.9 cm; Wt 90.7 kg
[2019-11-02 20:00] VITALS: BP 105/43
[2019-11-02 20:27] LABS: BASOPHILS 0.4 % (0-2); EOSINOPHILS 1.4 % (0-7); HEMATOCRIT 25.1 % (36.0-48.0); HEMOGLOBIN 8.2 g/dL (12-16); IMMATURE GRANULOCYTES 1.7 % (0-5); LYMPHOCYTES 23.8 % (15-50); MCHC 32.7 g/dL (31.0-37.0); MCV 91.9 fL (80.0-100.0); MONOCYTES 13.8 % (2-11); NEUTROPHILS 58.9 % (40-80); RBC 2.73 10x6/uL (4.00-5.40); RDW 20.9 % (11.5-14.5); WBC 4.8 10x3/uL (4.8-10.8)
[2019-11-02 20:33] LABS: PLATELET COUNT 33 10x3/uL (130-400)
[2019-11-02 20:44] LABS: ALBUMIN 1.6 g/dL (3.4-5.0); ANION GAP 9.3 mmol/L (8-16); BILIRUBIN - TOTAL 4.19 mg/dL (0.2-1.3); CALCIUM 7.9 mg/dL (8.5-10.1); CARBON DIOXIDE 26.2 mmol/L (21.0-32.0); CREATININE - SERUM 1.1 mg/dL (0.6-1.3); POTASSIUM - SERUM 4.5 mmol/L (3.5-5.1); PROTEIN - SERUM 6.3 g/dL (6.4-8.2)
[2019-11-02 20:53] LABS: PLATELET ESTIMATE DECREASED
[2019-11-02 21:41] VITALS: BP 105/43
[2019-11-03] VITALS: BP 115/44
[2019-11-03 04:00] VITALS: BP 110/48
[2019-11-03 06:07] LABS: BASOPHILS 0.5 % (0-2); EOSINOPHILS 3.3 % (0-7); HEMATOCRIT 25.2 % (36.0-48.0); HEMOGLOBIN 8.2 g/dL (12-16); IMMATURE GRANULOCYTES 2.3 % (0-5); LYMPHOCYTES 28.9 % (15-50); MCH 29.9 pg (26.0-34.0); MCHC 32.5 g/dL (31.0-37.0); MEAN PLATELET VOLUME 10.9 fL (7.4-10.4); MONOCYTES 19.7 % (2-11); NEUTROPHILS 45.3 % (40-80); RBC 2.74 10x6/uL (4.00-5.40); RDW 21.2 % (11.5-14.5)
[2019-11-03 06:13] LABS: PLATELET COUNT 35 10x3/uL (130-400)
[2019-11-03 06:27] LABS: ALBUMIN 1.6 g/dL (3.4-5.0); ANION GAP 6.8 mmol/L (8-16); BILIRUBIN - TOTAL 3.66 mg/dL (0.2-1.3); CALCIUM 8.2 mg/dL (8.5-10.1); CARBON DIOXIDE 28.2 mmol/L (21.0-32.0); CREATININE - SERUM 1.1 mg/dL (0.6-1.3); PROTEIN - SERUM 6.4 g/dL (6.4-8.2)
[2019-11-03 08:28] VITALS: BP 108/42
--- NOTE | 2019-11-03 10:51 | NUR ---
PT ALERT X 4. BREATH SOUNDS CLEAR BILAT. IV TO RIGHT WRIST, SALINE LOCKED. PT REPORTING PAIN OF 5/10, WILL CONTINUE TO MONITOR. SLIGHTLY UNSTEADY WHEN AMBULATING. BLOOD REPORTED IN URINE AND STOOL. BED LOW, CALL LIGHT IN REACH. NO OTHER NEEDS AT THIS TIME.
[2019-11-03 11:32] VITALS: BP 124/42
[2019-11-03 15:09] LABS: GLUCOSE NEGATIVE (NEGATIVE); KETONE NEGATIVE (NEGATIVE); NITRITE NEGATIVE (NEGATIVE); UROBILINOGEN NORMAL (NORMAL)
[2019-11-03 15:10] LABS: BACTERIA FEW /hpf (NEGATIVE); BILIRUBIN NEGATIVE (NEGATIVE); EPITHELIAL CELLS 0-5 /hpf (0-5); RED CELLS - URINE 25-50 /hpf (0-5); WHITE CELLS - URINE OCC /hpf (NEGATIVE)
[2019-11-03 16:18] VITALS: BP 108/39
--- NOTE | 2019-11-03 19:55 | NUR ---
PATIENT RESTING IN BED AND DENIES NEEDS AT THIS TIME. BED IN LOWEST POSITION AND CALL LIGHT WITHIN REACH. ENCOURAGED THE PATIENT TO CALL IF SHE HAS NEEDS. WILL CONTINUE TO MONITOR.
[2019-11-03 20:00] VITALS: BP 110/45
[2019-11-04] VITALS: BP 124/42
[2019-11-04 04:00] VITALS: BP 115/44
[2019-11-04 05:09] LABS: ALBUMIN 1.8 g/dL (3.4-5.0); ANION GAP 6.2 mmol/L (8-16); BILIRUBIN - TOTAL 3.54 mg/dL (0.2-1.3); CALCIUM 8.2 mg/dL (8.5-10.1); CARBON DIOXIDE 30.3 mmol/L (21.0-32.0); CREATININE - SERUM 1.1 mg/dL (0.6-1.3); MAGNESIUM - SERUM 1.7 mg/dL (1.8-2.4); PHOSPHOROUS 3.1 mg/dL (2.5-4.9); POTASSIUM - SERUM 3.5 mmol/L (3.5-5.1)
[2019-11-04 05:10] LABS: APTT 35.5 SECONDS (22.8-39.4); INR 1.81 (0.85-1.17); PROTIME 20.7 SECONDS (11.6-15.0)
[2019-11-04 05:48] LABS: BASOPHILS 0.4 % (0-2); HEMOGLOBIN 9.1 g/dL (12-16); IMMATURE GRANULOCYTES 3.9 % (0-5); LYMPHOCYTES 28.8 % (15-50); MCH 30.5 pg (26.0-34.0); MCHC 33.7 g/dL (31.0-37.0); MCV 90.6 fL (80.0-100.0); MONOCYTES 15.5 % (2-11); NEUTROPHILS 49.4 % (40-80); RBC 2.98 10x6/uL (4.00-5.40); RDW 21.6 % (11.5-14.5); WBC 4.6 10x3/uL (4.8-10.8)
[2019-11-04 05:50] LABS: PLATELET COUNT 45 10x3/uL (130-400)
--- NOTE | 2019-11-04 07:30 | NUR ---
PT SITTING UP IN BED WATCHING TV. RESP EVEN AND UNLABORE. DENIES PAIN AT THIS TIME. NO IV ACCESS AT THIS TIME, VASCULAR ACCESS CONSULTED TO PLACE IV. DENIES FURTHER NEEDS AT THIS TIME. CL WITHIN REACH. ENCORUAGED TO CALL WITH NEEDS. CONTINUE POC
[2019-11-04 08:25] VITALS: BP 130/46
--- NOTE | 2019-11-04 10:22 | NUR ---
Placed 24 gauge PIV to left FA w/out difficulty x1. Site flushes easy w/good blood return. Pt denies pain. No redness/swelling noted. Small amount of bruising noted. Reported to primary nurse Lori.
[2019-11-04 12:13] VITALS: BP 122/43
[2019-11-04 14:02] VITALS: Ht 154.9 cm; Wt 90.7 kg
[2019-11-04 16:52] VITALS: BP 125/56
[2019-11-04 18:08] LABS: BILIRUBIN NEGATIVE (NEGATIVE); GLUCOSE NEGATIVE (NEGATIVE); KETONE NEGATIVE (NEGATIVE); NITRITE NEGATIVE (NEGATIVE); UROBILINOGEN NORMAL (NORMAL)
[2019-11-04 18:09] LABS: BACTERIA MANY /hpf (NEGATIVE); WHITE CELLS - URINE 0-5 /hpf (NEGATIVE)
--- NOTE | 2019-11-04 19:55 | NUR ---
LYING IN BED TALKING ON CELL PHONE. ALERT AND ORIENTED X4. RESP EVEN AND NONLABORED. O2 @ 2L/NC. ABD DISTENDED. SKIN IS SLIGHTLY JAUNDICED. REFUSED SCDS. AMBULATORY. SALINE LOCK NOTED TO LT FOREARM. DENIES PAIN. REPORTS SHE HAS BEEN CONSTIPATED. "PASSING GAS". EDEMA NOTED TO BLE. NO DISTRESS. SR ELEVATED X2. CL IN REACH.
[2019-11-04 20:14] VITALS: BP 126/43
[2019-11-05] VITALS: BP 147/67
--- NOTE | 2019-11-05 00:57 | NUR ---
LYING IN BED TALKING ON PHONE. NO DISTRESS. CL IN REACH.
[2019-11-05 04:40] VITALS: BP 157/61
[2019-11-05 05:05] LABS: BASOPHILS 0.4 % (0-2); EOSINOPHILS 1.9 % (0-7); HEMATOCRIT 26.6 % (36.0-48.0); IMMATURE GRANULOCYTES 1.7 % (0-5); LYMPHOCYTES 26.7 % (15-50); MCH 30.6 pg (26.0-34.0); MCHC 33.8 g/dL (31.0-37.0); MCV 90.5 fL (80.0-100.0); MONOCYTES 15.3 % (2-11); RBC 2.94 10x6/uL (4.00-5.40); RDW 21.7 % (11.5-14.5); WBC 4.8 10x3/uL (4.8-10.8)
[2019-11-05 05:34] LABS: ALBUMIN 1.8 g/dL (3.4-5.0); ANION GAP 8.6 mmol/L (8-16); BILIRUBIN - TOTAL 3.86 mg/dL (0.2-1.3); CALCIUM 8.3 mg/dL (8.5-10.1); CARBON DIOXIDE 26.6 mmol/L (21.0-32.0); CREATININE - SERUM 1.1 mg/dL (0.6-1.3); MAGNESIUM - SERUM 1.7 mg/dL (1.8-2.4); PHOSPHOROUS 3.3 mg/dL (2.5-4.9); POTASSIUM - SERUM 4.2 mmol/L (3.5-5.1)
[2019-11-05 06:02] LABS: PLATELET COUNT 32 10x3/uL (130-400)
--- NOTE | 2019-11-05 07:49 | NUR ---
PT RESTING IN BED WITH EYES CLOSED. RESP EVEN AND UNLABORED. DENIES PAIN AT THIS TIME. SALINE LOC TO LEFT FOREARM, SITE WITHOUT REDNESS OR EDEMA. DENIES FURTHER NEEDS AT THIS TIME. CL WITHIN REACH. ENCOURAGED TO CALL WITH NEEDS. CONTINUE POC
[2019-11-05 08:02] VITALS: BP 123/49
[2019-11-05 08:59] LABS: PLATELET ESTIMATE DECREASED
[2019-11-05 12:37] VITALS: BP 104/42
--- NOTE | 2019-11-05 12:48 | MORECARE ---
CASE MANAGEMENT DISCHARGE SUMMARY PATIENT: OBIE JARAMILLO UNIT: [id number] ADM DATE: 11/02/19 AGE: 59 : 64 SEX: F ROOM/BED: D.2206 AUTHOR: CHERRI LAZO PHYSICIAN: REFERRING PHYSICIAN: WEI LEVINE MD DATE OF SERVICE: 11/05/19 Discharge Plan Patient Name: OBIE JARAMILLO [facility] [facility] 1960 Planned Disposition: Home with Home Health Anticipated Discharge Date: Discharge Date: Expected LOS: Initial Reviewer: [email or web address] Initial Review Date: 11/02/2019 Generated: 11/05/19 1:48 pm Patient Name: OBIE JARAMILLO Page 20736 at 1248 All edits/amendments must be made on the electronic document DICTATION DATE: 11/05/19 1248 RESEARCH CHEMIST: CARMEN 11/05/19 1248 RPT#: [id number] DC DATE: STATUS: ADM IN [facility] [address] [place] [address] END OF REPORT
--- NOTE | 2019-11-05 13:34 | MORECARE ---
CASE MANAGEMENT DISCHARGE SUMMARY PATIENT: OBIE JARAMILLO UNIT: [id number] ADM DATE: 11/02/19 AGE: 59 : 64 SEX: F ROOM/BED: D.2206 AUTHOR: CHERRI LAZO PHYSICIAN: REFERRING PHYSICIAN: WEI LEVINE MD DATE OF SERVICE: 11/05/19 Discharge Plan Patient Name: OBIE JARAMILLO [facility] [facility] 1960 Planned Disposition: Home with Home Health Anticipated Discharge Date: Discharge Date: Expected LOS: Initial Reviewer: [email or web address] Initial Review Date: 11/02/2019 Generated: 11/05/19 2:33 pm Last DP export: 11/05/19 11:48 am Patient Name: OBIE JARAMILLO Page 67285 at 1334 All edits/amendments must be made on the electronic document DICTATION DATE: 11/05/19 1333 ELECTRONIC WARFARE TECHNICIAN: CARMEN 11/05/19 1333 RPT#: [id number] DC DATE: STATUS: ADM IN [facility] [address] [place] [address] END OF REPORT
--- NOTE | 2019-11-05 13:43 | MORECARE ---
CASE MANAGEMENT DISCHARGE SUMMARY PATIENT: OBIE JARAMILLO UNIT: [id number] ADM DATE: 11/02/19 AGE: 59 : 64 SEX: F ROOM/BED: D.2206 AUTHOR: CHERRI LAZO PHYSICIAN: REFERRING PHYSICIAN: WEI LEVINE MD DATE OF SERVICE: 11/05/19 Discharge Plan Patient Name: OBIE JARAMILLO [facility] [facility] 1960 Planned Disposition: Home with Home Health Anticipated Discharge Date: Discharge Date: Expected LOS: Initial Reviewer: [email or web address] Initial Review Date: 11/02/2019 Generated: 11/05/19 2:42 pm DCPIA - Discharge Planning Initial Assessment Updated by [email or web address]: Nieves Wiley on 11/05/19 1:42 pm * Is the patient Alert and Oriented? Yes * How many steps to enter\exit or inside your home? * PCP DR ROJO * Pharmacy [facility] * Preadmission Environment Home Alone * ADLs Independent * Equipment None * List name and contact numbers for known caregivers / representatives who currently or will assist patient after discharge: MAN CHINO (SISTER IN LAW) [phone] * Verbal permission to speak to the caregivers and representatives has been obtained from the patient. Yes * Community resources currently utilized None * Additional services required to return to the preadmission environment? Yes * Can the patient safely return to the preadmission environment? Yes * Has this patient been hospitalized within the prior 30 days at any hospital? Yes Last DP export: 11/05/19 12:34 pm Patient Name: OBIE JARAMILLO Page 77097 at 1343 All edits/amendments must be made on the electronic document DICTATION DATE: 11/05/19 1343 SCAN COORDINATOR: CARMEN 11/05/19 1343 RPT#: [id number] DC DATE: STATUS: ADM IN [facility] [address] [place] [address] END OF REPORT
--- NOTE | 2019-11-05 13:52 | MORECARE ---
CASE MANAGEMENT DISCHARGE SUMMARY PATIENT: OBIE JARAMILLO UNIT: [id number] ADM DATE: 11/02/19 AGE: 59 : 64 SEX: F ROOM/BED: D.2206 AUTHOR: VIOLET,DOC PHYSICIAN: REFERRING PHYSICIAN: WEI LEVINE MD DATE OF SERVICE: 11/05/19 Discharge Plan Patient Name: OBIE JARAMILLO Facility: [facility]:[place] : 1960 Planned Disposition: Home with Home Health Anticipated Discharge Date: Discharge Date: Expected LOS: Initial Reviewer: [email or web address] Initial Review Date: 11/02/2019 Generated: 11/05/19 2:52 pm Comments DCP- Discharge Planning Updated by [id number]: Nieves Wiley on 11/05/19 12:[address] Patient Name: OBIE JARAMILLO Admission Status: Elective Accout number: [id number] Admission Date: 11-02-2019 : 1960 Admission Diagnosis:WEAKNESS Attending: LINETTE Current LOS: 3 Anticipated DC Date: Planned Disposition: Home with Home Health Primary Insurance: [place] PRIVATE OPTIONS DEV Discharge Planning Comments: CM met with patient to complete initial dc planning assessment. CM educated patient on the CM role and verbal consent given by patient to complete assessment. Patient lives at home alone where she was independent with her care. At discharge patient plans to return home and feels this is a safe discharge. CM discussed availability of home health, rehab services, and medical equipment. The patient asked me to call her sister Karen to find out what company and what DME she might needs. She would like a rollator walker, and a shower slide chair. I spoke with Karen at length about needs. Karen stated that she needs a Rollator, shower slide chair & would like [employer] with a nursing instructor. MAXWELL signed and will let July Know. Patient denied known discharge needs at this time. CM will continue to follow and will assist as needed with dc plans/needs. Paper Rewinder: Nieves Wiley DCPIA - Discharge Planning Initial Assessment Updated by [email or web address]: Nieves Wiley on 11/05/19 1:42 pm * Is the patient Alert and Oriented? Yes * How many steps to enter\exit or inside your home? * PCP DR ROJO * Pharmacy [facility] * Preadmission Environment Home Alone * ADLs Independent * Equipment None * List name and contact numbers for known caregivers / representatives who currently or will assist patient after discharge: KAREN CHINO (SISTER IN LAW) [phone] * Verbal permission to speak to the caregivers and representatives has been obtained from the patient. Yes * Community resources currently utilized None * Additional services required to return to the preadmission environment? Yes * Can the patient safely return to the preadmission environment? Yes * Has this patient been hospitalized within the prior 30 days at any hospital? Yes Last DP export: 11/05/19 12:43 pm Patient Name: OBIE JARAMILLO Page 57530 at 1352 All edits/amendments must be made on the electronic document DICTATION DATE: 11/05/19 1352 PLAYER DEVELOPMENT MANAGER: CARMEN 11/05/19 1352 RPT#: [id number] DC DATE: STATUS: ADM IN [facility] [address] [place] [address] END OF REPORT
--- NOTE | 2019-11-05 14:24 | MORECARE ---
CASE MANAGEMENT DISCHARGE SUMMARY PATIENT: OBIE JARAMILLO UNIT: [id number] ADM DATE: 11/02/19 AGE: 59 : 64 SEX: F ROOM/BED: D.2206 AUTHOR: VIOLET,DOC PHYSICIAN: REFERRING PHYSICIAN: WEI LEVINE MD DATE OF SERVICE: 11/05/19 Discharge Plan Patient Name: OBIE JARAMILLO Facility: [facility]:[place] : 1960 Planned Disposition: Home with Home Health Anticipated Discharge Date: Discharge Date: Expected LOS: Initial Reviewer: [email or web address] Initial Review Date: 11/02/2019 Generated: 11/05/19 3:23 pm Comments DCP- Discharge Planning Updated by [id number]: Nieves Wiley on 11/05/19 12:[address] Patient Name: OBIE JARAMILLO Admission Status: Elective Accout number: [id number] Admission Date: 11-02-2019 : 1960 Admission Diagnosis:WEAKNESS Attending: LINETTE Current LOS: 3 Anticipated DC Date: Planned Disposition: Home with Home Health Primary Insurance: [place] PRIVATE OPTIONS DEV Discharge Planning Comments: CM met with patient to complete initial dc planning assessment. CM educated patient on the CM role and verbal consent given by patient to complete assessment. Patient lives at home alone where she was independent with her care. At discharge patient plans to return home and feels this is a safe discharge. CM discussed availability of home health, rehab services, and medical equipment. The patient asked me to call her sister Karen to find out what company and what DME she might needs. She would like a rollator walker, and a shower slide chair. I spoke with Karen at length about needs. Karen stated that she needs a Rollator, shower slide chair & would like [facility] with a nursing resident. MAXWELL signed and will let July Know. Patient denied known discharge needs at this time. CM will continue to follow and will assist as needed with dc plans/needs. Chef Concierge: Nieves Wiley DCPIA - Discharge Planning Initial Assessment Updated by [email or web address]: Nieves Wiley on 11/05/19 1:42 pm * Is the patient Alert and Oriented? Yes * How many steps to enter\exit or inside your home? * PCP DR ROJO * Pharmacy [facility] * Preadmission Environment Home Alone * ADLs Independent * Equipment None * List name and contact numbers for known caregivers / representatives who currently or will assist patient after discharge: KAREN CHINO (SISTER IN LAW) [phone] * Verbal permission to speak to the caregivers and representatives has been obtained from the patient. Yes * Community resources currently utilized None * Additional services required to return to the preadmission environment? Yes * Can the patient safely return to the preadmission environment? Yes * Has this patient been hospitalized within the prior 30 days at any hospital? Yes External Providers External Provider: [id number] Next Contact Date: Service Request Date: Service Type: Resolution: Reviewer: Comments: Last DP export: 11/05/19 12:52 pm Patient Name: OBIE JARAMILLO Page [phone] at 1424 All edits/amendments must be made on the electronic document DICTATION DATE: 11/05/19 [employer]: CARMEN 11/05/19 1423 RPT#: [id number] DC DATE: STATUS: ADM IN [facility] [address] [place] [address] END OF REPORT
[2019-11-05 17:03] VITALS: BP 128/47
[2019-11-05 20:00] VITALS: BP 126/50
--- NOTE | 2019-11-05 21:10 | NUR ---
LYING IN BED TALKING ON THE PHONE. ALERT AND ORIENTED TO SELF, PLACE. CONFUSED AND FORGETFUL. SLOW TO RESPOND. AMB WITH ASSIST. RESP EVEN AND NONLABORED. SALINE LOCK NOTED TO LT FOREARM. EDEMA NOTED TO BLE. SCDS IN USE BILAT. BED ALARM IN USE. SR ELEVATED X2. CL IN REACH.
[2019-11-06] VITALS: BP 124/49
[2019-11-06 04:00] VITALS: BP 131/45
[2019-11-06 04:33] LABS: BASOPHILS 0.4 % (0-2); EOSINOPHILS 2.7 % (0-7); HEMATOCRIT 27.1 % (36.0-48.0); HEMOGLOBIN 9.2 g/dL (12-16); IMMATURE GRANULOCYTES 1.3 % (0-5); LYMPHOCYTES 25.5 % (15-50); MCH 30.8 pg (26.0-34.0); MCHC 33.9 g/dL (31.0-37.0); MCV 90.6 fL (80.0-100.0); MONOCYTES 16.3 % (2-11); NEUTROPHILS 53.8 % (40-80); RBC 2.99 10x6/uL (4.00-5.40); RDW 21.9 % (11.5-14.5); WBC 4.8 10x3/uL (4.8-10.8)
[2019-11-06 04:44] LABS: PLATELET COUNT 31 10x3/uL (130-400)
[2019-11-06 04:50] LABS: ALBUMIN 1.8 g/dL (3.4-5.0); ANION GAP 11.5 mmol/L (8-16); BILIRUBIN - TOTAL 3.9 mg/dL (0.2-1.3); CALCIUM 8.4 mg/dL (8.5-10.1); CARBON DIOXIDE 23.6 mmol/L (21.0-32.0); CREATININE - SERUM 1.2 mg/dL (0.6-1.3); MAGNESIUM - SERUM 1.8 mg/dL (1.8-2.4); PHOSPHOROUS 2.9 mg/dL (2.5-4.9); POTASSIUM - SERUM 4.1 mmol/L (3.5-5.1); PROTEIN - SERUM 7.1 g/dL (6.4-8.2)
--- NOTE | 2019-11-06 07:45 | NUR ---
PT ASSISTED TO BATHROOM AND BACK TO BED. PT PRESENTS SOMEWHAT WEAKER THIS AM. REPORTS INCREASED WEAKNESS. REPORTS PAIN 4/10 AT THIS TIME. SALINE LOC TO LEFT FOREARM. SITE WITHOUT REDNESS OR EDEMA. DENIES FURTHER NEEDS AT THIS TIME. CL WITHIN REACH. ENCOURAGED TO CALL WITH NEEDS. CONTINUE POC
[2019-11-06 09:14] VITALS: BP 121/44
[2019-11-06 12:27] LABS: INR 1.78 (0.85-1.17); PROTIME 20.5 SECONDS (11.6-15.0)
[2019-11-06 13:59] VITALS: BP 126/49
--- NOTE | 2019-11-06 14:28 | NUR ---
Nutrition follow-up: Pt receiving a renal diet PO intake ~60% average of last 3 meals; po intake has decreased today NH3 elevated No BM despite lactulose Labs reviewed Wt: 199# RDN following.
[2019-11-06 17:10] VITALS: BP 105/48
[2019-11-06 20:00] VITALS: BP 118/44
[2019-11-07] VITALS: BP 108/39
--- NOTE | 2019-11-07 00:07 | NUR ---
B/P 108/39 MANUAL 112/42, P,118, R16, TEMP -100.7 GAVE TYLENOL PER ORDERS. CALL TO TARUN NO NEW ORDERS AT THIS TIME CONTIONUE TO MONITOR WILL REASSISS IN AM AFTER AM LABS.
--- NOTE | 2019-11-07 02:55 | NUR ---
resting in bed at this time on room air. iv to left forearm with zofran at 4.7ml/hr. posie alarm in place and on. tlemtrity in place, incentive spirometer in reach at bedside. scd's in plaCE AND ON. CALL LIGHT IN REACH.
--- NOTE | 2019-11-07 03:53 | NUR ---
V/S OIL RAG WASHER GOT 94/37, P. 119, R 18, 96% ON ROOM AIR. RUTH B/P 108/46 CALL TO TRANSITIONS RN CARE COORDINATOR NEW ORDER FOR C-XRAY WITH LABS.
[2019-11-07 04:00] VITALS: BP 108/46
[2019-11-07 04:45] LABS: HEMATOCRIT 24.7 % (36.0-48.0); HEMOGLOBIN 8.5 g/dL (12-16); LYMPHOCYTES 11.2 % (15-50); MCH 31.8 pg (26.0-34.0); MCHC 34.4 g/dL (31.0-37.0); MCV 92.5 fL (80.0-100.0); NEUTROPHILS 73.2 % (40-80); RBC 2.67 10x6/uL (4.00-5.40); RDW 22.5 % (11.5-14.5)
[2019-11-07 04:48] LABS: WBC 8.9 10x3/uL (4.8-10.8)
[2019-11-07 04:51] LABS: PLATELET COUNT 48 10x3/uL (130-400)
[2019-11-07 04:57] LABS: ALBUMIN 1.8 g/dL (3.4-5.0); ANION GAP 11.8 mmol/L (8-16); BILIRUBIN - TOTAL 5.24 mg/dL (0.2-1.3); CALCIUM 8.5 mg/dL (8.5-10.1); CARBON DIOXIDE 21.8 mmol/L (21.0-32.0); PHOSPHOROUS 3.4 mg/dL (2.5-4.9); POTASSIUM - SERUM 4.6 mmol/L (3.5-5.1); PROTEIN - SERUM 6.6 g/dL (6.4-8.2)
[2019-11-07 04:58] LABS: CREATININE - SERUM 1.8 mg/dL (0.6-1.3)
[2019-11-07 05:09] LABS: INR 1.86 (0.85-1.17); PROTIME 21.2 SECONDS (11.6-15.0)
[2019-11-07 09:12] VITALS: BP 112/52
--- NOTE | 2019-11-07 13:09 | NUR ---
MAN CHINO QUESTIONING B 12 LEVEL BECAUSE SHE'S ASSYMPOTOMATIC FOR LOW B-12.
[2019-11-07 13:20] VITALS: BP 120/46
[2019-11-07 16:45] VITALS: BP 119/68
[2019-11-07 20:00] VITALS: BP 132/51
[2019-11-08 04:00] VITALS: BP 134/53
[2019-11-08 06:33] LABS: ANION GAP 13.9 mmol/L (8-16); BILIRUBIN - TOTAL 5.51 mg/dL (0.2-1.3); CALCIUM 8.6 mg/dL (8.5-10.1); CARBON DIOXIDE 20.3 mmol/L (21.0-32.0); CREATININE - SERUM 1.6 mg/dL (0.6-1.3); PHOSPHOROUS 3.1 mg/dL (2.5-4.9); POTASSIUM - SERUM 4.2 mmol/L (3.5-5.1); PROTEIN - SERUM 7.1 g/dL (6.4-8.2)
[2019-11-08 06:41] LABS: INR 1.84 (0.85-1.17)
[2019-11-08 07:10] LABS: BASOPHILS 0.1 % (0-2); EOSINOPHILS 0.6 % (0-7); HEMATOCRIT 24.9 % (36.0-48.0); HEMOGLOBIN 8.4 g/dL (12-16); IMMATURE GRANULOCYTES 0.3 % (0-5); MCH 30.9 pg (26.0-34.0); MCHC 33.7 g/dL (31.0-37.0); MCV 91.5 fL (80.0-100.0); MONOCYTES 11.8 % (2-11); NEUTROPHILS 76.2 % (40-80); RBC 2.72 10x6/uL (4.00-5.40); RDW 21.6 % (11.5-14.5)
[2019-11-08 07:16] LABS: PLATELET COUNT 42 10x3/uL (130-400)
[2019-11-08 07:45] LABS: PLATELET ESTIMATE DECREASED
--- NOTE | 2019-11-08 07:50 | NUR ---
PT LYING IN BED, FLUIDS ALARMING COMPLETE, SWITCHED BAGS OVER, PT IS AWAKE AND ALERT, IV IN LT HAND SALINE LOCKED, IV IN RT FA N/S AT 50, PT HR IS 80 PER CAVALRY SCOUT. PT HAS WV LEFT HIP, INTACT, STATES STILL IN PAIN BUT MANAGABLE. CL IN REACH NO S/SX OF DISTRESS. CONTINUE WITH PLAN OF CARE
[2019-11-08 09:08] VITALS: BP 132/46
--- NOTE | 2019-11-08 10:29 | NUR ---
PT SISTER IN LAW CALLED FOR UPDATE ON LAB WORK AND PT STATUS. WENT OVER PT LAB WITH HER AFTER PERMISSION RECEIVED FROM PT. PT HAS NOSE BLEED AGAIN THIS MORNING AND SITTING ON BSC. PT AMONIA LEVEL AT 29. NO NEEDS TA THIS TIME. CONTINUE WITH PLAN OF CARE
[2019-11-08 12:15] VITALS: BP 115/52
--- NOTE | 2019-11-08 12:23 | NUR ---
I have reviewed this patient and I concur with the Shift Assessment completed by the Licensed Practical Nurse today this shift.
--- NOTE | 2019-11-08 15:38 | MORECARE ---
CASE MANAGEMENT DISCHARGE SUMMARY PATIENT: OBIE JARAMILLO UNIT: [id number] ADM DATE: 11/02/19 AGE: 59 : 64 SEX: F ROOM/BED: D.2206 AUTHOR: VIOLET,DOC PHYSICIAN: REFERRING PHYSICIAN: WEI LEVINE MD DATE OF SERVICE: 11/08/19 Discharge Plan Patient Name: OBIE JARAMILLO Facility: [facility]:[place] : 1960 Planned Disposition: Home with Home Health Anticipated Discharge Date: Discharge Date: Expected LOS: Initial Reviewer: [email or web address] Initial Review Date: 11/02/2019 Generated: 11/08/19 4:37 pm Comments DCP- Discharge Planning Updated by [email or web address]: Vilma Robbins on 11/08/19 2:[address] 1510 CM RECEIVED TELEPHONE CALL FROM TRANSCRIPTION COORDIN[facility] CLINICAL UPDATE GIVEN. SHE HAS ATTEMPED TO SPEAK WITH PATIENT. SHE WILL TRY AGAIN. SHE WANTED TO KNOW THE D/C PLAN. PLAN FOR H/H. SHE STATES THE PATIENT DOES HAVE A BENEFIT FOR REHAB SERVICES. SHE IS CONCERNED SHE STATES THE PATIENT HAS LIMITEDASSISTANCE. SHE WILL FOLLOW UP ON MONDAY. DCP- Discharge Planning Updated by [id number]: Nieves Wiley on 11/05/19 12:[address] Patient Name: OBIE JARAMILLO Admission Status: Elective Accout number: [id number] Admission Date: 11-02-2019 : 1960 Admission Diagnosis:WEAKNESS Attending: LINETTE Current LOS: 3 Anticipated DC Date: Planned Disposition: Home with Home Health Primary Insurance: [place] PRIVATE OPTIONS [facility] Discharge Planning Comments: CM met with patient to complete initial dc planning assessment. CM educated patient on the CM role and verbal consent given by patient to complete assessment. Patient lives at home alone where she was independent with her care. At discharge patient plans to return home and feels this is a safe discharge. CM discussed availability of home health, rehab services, and medical equipment. The patient asked me to call her sister Man to find out what company and what DME she might needs. She would like a rollator walker, and a shower slide chair. I spoke with Man at length about needs. Man stated that she needs a Rollator, shower slide chair & would like [facility] with a associate director of nursing. MAXWELL signed and will let July Know. Patient denied known discharge needs at this time. CM will continue to follow and will assist as needed with dc plans/needs. Java Mobile Developer: Nieves Wiley DCPIA - Discharge Planning Initial Assessment Updated by [email or web address]: Nieves Wiley on 11/05/19 1:42 pm * Is the patient Alert and Oriented? Yes * How many steps to enter\exit or inside your home? * PCP DR ROJO * Pharmacy [facility] * Preadmission Environment Home Alone * ADLs Independent * Equipment None * List name and contact numbers for known caregivers / representatives who currently or will assist patient after discharge: MAN CHINO (SISTER IN LAW) [phone] * Verbal permission to speak to the caregivers and representatives has been obtained from the patient. Yes * Community resources currently utilized None * Additional services required to return to the preadmission environment? Yes * Can the patient safely return to the preadmission environment? Yes * Has this patient been hospitalized within the prior 30 days at any hospital? Yes Last DP export: 11/05/19 1:24 pm Patient Name: OBIE JARAMILLO Page [phone] at 1538 All edits/amendments must be made on the electronic document DICTATION DATE: 11/08/191536 [employer]ED [employer] P[employer]ING SUPERVISOR: CARMEN 11/08/191536 RPT#: [id number] DC DATE: STATUS: ADM IN [facility] [address] [place] [address] END OF REPORT
[2019-11-08 16:59] VITALS: BP 117/48
[2019-11-08 20:00] VITALS: BP 153/59
--- NOTE | 2019-11-08 20:00 | NUR ---
PATIENT RESTING IN BED WITH EYES CLOSED. NO S/S OF ACUTE DISTRESS. NO C/O AT THIS TIME. PATIENT IS ON TELEMETRY: 117 SIN[address] TACH. PATIENT HAS LEFT FOREARM ZOFRAN. IV IS PATENT WITHOUT REDNESS, SWELLING, OR TENDERNESS. PATIENT IS JAUNDICED. PATIENT IS UP WITH ASSIST TO THE BEDSIDE COMMODE. CALL LIGHT WITHIN REACH. BED ALARM ON. WILL CONTINUE MONITOR.
[2019-11-09] VITALS: BP 121/45
--- NOTE | 2019-11-09 03:47 | NUR ---
I have reviewed this patient and I concur with the Shift Assessment completed by the Licensed Practical Nurse today this shift.
[2019-11-09 07:09] LABS: BASOPHILS 0.2 % (0-2); EOSINOPHILS 1.2 % (0-7); HEMATOCRIT 26.6 % (36.0-48.0); HEMOGLOBIN 8.8 g/dL (12-16); IMMATURE GRANULOCYTES 0.6 % (0-5); LYMPHOCYTES 13.2 % (15-50); MCH 30.3 pg (26.0-34.0); MCHC 33.1 g/dL (31.0-37.0); MCV 91.7 fL (80.0-100.0); MONOCYTES 12.2 % (2-11); NEUTROPHILS 72.6 % (40-80); RDW 21.7 % (11.5-14.5); WBC 10.9 10x3/uL (4.8-10.8)
[2019-11-09 07:21] LABS: PLATELET COUNT 37 10x3/uL (130-400)
[2019-11-09 07:23] LABS: PLATELET ESTIMATE DECREASED
--- NOTE | 2019-11-09 07:23 | NUR ---
RECEIVED CALL FROM LAB, PT'S PLATELETS ARE 37 THIS MORNING. PT LYING IN BED, NO S/SX OF DISTRESS, NO NEEDS VOICED, CL IN REACH CONTINUE WITH PLAN OF CARE
[2019-11-09 07:30] LABS: ALBUMIN 1.9 g/dL (3.4-5.0); ANION GAP 9.7 mmol/L (8-16); BILIRUBIN - TOTAL 4.39 mg/dL (0.2-1.3); CALCIUM 8.1 mg/dL (8.5-10.1); CARBON DIOXIDE 24.5 mmol/L (21.0-32.0); CREATININE - SERUM 1.9 mg/dL (0.6-1.3); POTASSIUM - SERUM 4.2 mmol/L (3.5-5.1); PROTEIN - SERUM 6.5 g/dL (6.4-8.2)
[2019-11-09 07:36] LABS: INR 1.85 (0.85-1.17); PROTIME 21.1 SECONDS (11.6-15.0)
[2019-11-09 07:54] VITALS: BP 130/44
--- NOTE | 2019-11-09 07:57 | NUR ---
BLACK RADER IN REGARDS TO PT PLATELETS AND WAS TOLD TO LET DR JOHNSTON KNOW. WILL HAVE DR JOHNSTON PAGEVane
[2019-11-09 12:06] VITALS: BP 149/55
--- NOTE | 2019-11-09 12:42 | NUR ---
I have reviewed this patient and I concur with the Shift Assessment completed by the Licensed Practical Nurse today this shift.
[2019-11-09 17:39] VITALS: BP 107/60
[2019-11-09 20:00] VITALS: BP 109/55
[2019-11-10] VITALS: BP 120/44
[2019-11-10 04:00] VITALS: BP 111/46
[2019-11-10 06:57] LABS: INR 1.85 (0.85-1.17); PROTIME 21.1 SECONDS (11.6-15.0)
[2019-11-10 07:09] LABS: BASOPHILS 0.1 % (0-2); EOSINOPHILS 2.2 % (0-7); HEMOGLOBIN 8.2 g/dL (12-16); IMMATURE GRANULOCYTES 0.4 % (0-5); MCH 31.4 pg (26.0-34.0); MCHC 34.2 g/dL (31.0-37.0); MONOCYTES 16.1 % (2-11); NEUTROPHILS 59.2 % (40-80); RBC 2.61 10x6/uL (4.00-5.40); RDW 21.9 % (11.5-14.5)
[2019-11-10 07:10] LABS: WBC 6.9 10x3/uL (4.8-10.8)
[2019-11-10 07:11] LABS: PLATELET COUNT 24 10x3/uL (130-400)
[2019-11-10 07:14] LABS: PLATELET ESTIMATE DECREASED
[2019-11-10 07:35] LABS: ALBUMIN 1.6 g/dL (3.4-5.0); ANION GAP 9.4 mmol/L (8-16); BILIRUBIN - TOTAL 3.79 mg/dL (0.2-1.3); CREATININE - SERUM 1.7 mg/dL (0.6-1.3); POTASSIUM - SERUM 4.4 mmol/L (3.5-5.1); PROTEIN - SERUM 6.4 g/dL (6.4-8.2)
--- NOTE | 2019-11-10 07:55 | NUR ---
PT RESTING QUIETLY IN BED. RESP EVEN AND UNLABORED. PT DENIES PAIN AT THIS TIME. IV TO LEFT FOREARM WITH NS @ 50ML/HR, ZOFRAN 4.7 ML/HR BOTH INFUSING VIA PUMP. SITE WITHOUT REDNESS OR EDEMA. DENIES FURTHER NEEDS AT THIS TIME. CL WITHIN REACH. ENCOURAGED TO CALL WITH NEEDS. CONTINUE POC
[2019-11-10 08:22] VITALS: BP 118/42
[2019-11-10 12:14] VITALS: BP 118/58
[2019-11-10 16:12] VITALS: BP 104/35
[2019-11-11 00:16] VITALS: BP 114/43
[2019-11-11 04:39] LABS: BASOPHILS 0.2 % (0-2); HEMATOCRIT 23.5 % (36.0-48.0); HEMOGLOBIN 7.7 g/dL (12-16); IMMATURE GRANULOCYTES 0.7 % (0-5); MCH 30.1 pg (26.0-34.0); MCHC 32.8 g/dL (31.0-37.0); MCV 91.8 fL (80.0-100.0); NEUTROPHILS 54.1 % (40-80); RBC 2.56 10x6/uL (4.00-5.40); RDW 21.9 % (11.5-14.5); WBC 5.7 10x3/uL (4.8-10.8)
[2019-11-11 05:01] LABS: INR 1.77 (0.85-1.17); PROTIME 20.4 SECONDS (11.6-15.0)
[2019-11-11 05:06] LABS: ALBUMIN 1.5 g/dL (3.4-5.0); ANION GAP 8.8 mmol/L (8-16); BILIRUBIN - TOTAL 3.34 mg/dL (0.2-1.3); CALCIUM 8.1 mg/dL (8.5-10.1); CARBON DIOXIDE 26.1 mmol/L (21.0-32.0); CREATININE - SERUM 1.7 mg/dL (0.6-1.3); POTASSIUM - SERUM 4.9 mmol/L (3.5-5.1); PROTEIN - SERUM 6.2 g/dL (6.4-8.2)
[2019-11-11 05:12] LABS: PLATELET COUNT 36 10x3/uL (130-400)
[2019-11-11 06:17] VITALS: BP 120/46
--- NOTE | 2019-11-11 08:56 | NUR ---
SHE IS SETTING UP EATING BREAKFAST. DENIES ANY NEEDS. THE CALL LIGHT IS WITHIN REACH.
[2019-11-11 09:10] VITALS: BP 126/54
[2019-11-11 12:58] VITALS: BP 110/43
[2019-11-11 16:45] VITALS: BP 135/50
[2019-11-11 20:22] VITALS: BP 127/41
--- NOTE | 2019-11-11 21:09 | NUR ---
PATIENT ALERT AND ORIENTED. SITTING UP IN CHAIR EATNIG DINNER. NO SIGNS OF ACUTE DISTRESS NOTED. IV IN L FA,SL, NO REDNESS OR SWELLING. PATIENT HAS NO NEEDS AT THIS TIME. CALL LIGHT AND BEDSIDE TABLE WITHIN REACH.
[2019-11-12] VITALS (7 sets, daily range): BP systolic 107–127; BP diastolic 44–55
[2019-11-12 06:33] LABS: BASOPHILS 0.3 % (0-2); EOSINOPHILS 2.2 % (0-7); HEMATOCRIT 23.1 % (36.0-48.0); HEMOGLOBIN 7.9 g/dL (12-16); LYMPHOCYTES 22.5 % (15-50); MCHC 34.2 g/dL (31.0-37.0); MCV 90.6 fL (80.0-100.0); MONOCYTES 17.7 % (2-11); NEUTROPHILS 56.3 % (40-80); RBC 2.55 10x6/uL (4.00-5.40); RDW 21.7 % (11.5-14.5)
[2019-11-12 06:39] LABS: ALBUMIN 1.6 g/dL (3.4-5.0); ANION GAP 8.2 mmol/L (8-16); BILIRUBIN - TOTAL 3.64 mg/dL (0.2-1.3); CALCIUM 8.3 mg/dL (8.5-10.1); CARBON DIOXIDE 27.5 mmol/L (21.0-32.0); CREATININE - SERUM 1.7 mg/dL (0.6-1.3); MAGNESIUM - SERUM 1.9 mg/dL (1.8-2.4); PHOSPHOROUS 4.2 mg/dL (2.5-4.9); POTASSIUM - SERUM 4.7 mmol/L (3.5-5.1); PROTEIN - SERUM 6.2 g/dL (6.4-8.2)
[2019-11-12 06:44] LABS: WBC 7.2 10x3/uL (4.8-10.8)
[2019-11-12 06:45] LABS: PLATELET COUNT 27 10x3/uL (130-400)
--- NOTE | 2019-11-12 07:27 | NUR ---
ALERT AND ORIENTED. LUNGS CLEAR BILATERALLY. HEART SOUNDS S1 AND S2 HEARD IN ALL [place]. BOWEL SOUNDS ACTIVE X 4. IV TO LFA PATENT WITHOUT REDNESS. BED LOW. BED ALARM ON . CALL MORIN AND PERSONAL ITEMS IN REACH. WILL CONTINUE TO MONITOR.
[2019-11-12 10:37] LABS: PLATELET ESTIMATE DECREASED
[2019-11-12 10:38] LABS: ROULEAUX OCC
--- NOTE | 2019-11-12 10:42 | NUR ---
RESTING IN BED. DENIES NEESD. WILL CONTINUE TO MONITOR.
--- NOTE | 2019-11-12 20:00 | NUR ---
PT SITTING UP IN BED WITHOUT DISTRESS, AOX4. IV RIGHT FA INFUSING NS @ 50. SCDS ON. DENIES NEEDS AT THIS TIME. BED ALARM ON, CL IN REACH, WILL CTM
[2019-11-13 00:28] VITALS: BP 118/47
[2019-11-13 05:50] VITALS: BP 122/44
[2019-11-13 05:52] LABS: ALBUMIN 1.7 g/dL (3.4-5.0); ANION GAP 8.8 mmol/L (8-16); BILIRUBIN - TOTAL 3.96 mg/dL (0.2-1.3); CALCIUM 7.8 mg/dL (8.5-10.1); CARBON DIOXIDE 27.3 mmol/L (21.0-32.0); CREATININE - SERUM 1.7 mg/dL (0.6-1.3); MAGNESIUM - SERUM 1.8 mg/dL (1.8-2.4); PHOSPHOROUS 3.3 mg/dL (2.5-4.9); POTASSIUM - SERUM 4.1 mmol/L (3.5-5.1); PROTEIN - SERUM 6.4 g/dL (6.4-8.2)
[2019-11-13 06:09] LABS: BASOPHILS 0.4 % (0-2); EOSINOPHILS 2.6 % (0-7); HEMATOCRIT 23.6 % (36.0-48.0); HEMOGLOBIN 8.1 g/dL (12-16); IMMATURE GRANULOCYTES 1.9 % (0-5); LYMPHOCYTES 24.5 % (15-50); MCH 31.2 pg (26.0-34.0); MCHC 34.3 g/dL (31.0-37.0); MCV 90.8 fL (80.0-100.0); MONOCYTES 16.8 % (2-11); NEUTROPHILS 53.8 % (40-80); RDW 22.1 % (11.5-14.5); WBC 7.3 10x3/uL (4.8-10.8)
[2019-11-13 06:18] LABS: PLATELET COUNT 29 10x3/uL (130-400)
[2019-11-13 09:02] VITALS: BP 112/47
[2019-11-13 12:24] VITALS: BP 122/43
--- NOTE | 2019-11-13 15:13 | NUR ---
SHE IS ALERT, EATING BREAKFAST THIS MORNING. SHE IS WEAK TODAY. THE CALL LIGHT IS WITHIN REACH.
--- NOTE | 2019-11-13 16:44 | NUR ---
Rehab Note- Acute Inpatient prescreen order received. The patient has a [employer] insurance policy that with Daniella PreAuth is not required and Auth #[id number] was received for approval for patient's acute inpatient rehab stay. Javier accept the patient when medically stable and ready for discharge from the acute hospital. Will follow at this time. Thank you for this referral! Rosaura Alvarado RN Clinical Liaison, [facility] Rehab
[2019-11-13 18:01] VITALS: BP 120/44
--- NOTE | 2019-11-13 19:30 | NUR ---
PT LYING IN BED RESTING WITHOUT DISTRESS, AOX4. IV RIGHT FA INFUSING NS @ 50. SCDS ON BILAT. DENIES NEEDS AT THIS TIME. CL IN REACH, WILL CTM
[2019-11-13 19:45] LABS: BILIRUBIN NEGATIVE (NEGATIVE); GLUCOSE NEGATIVE (NEGATIVE); KETONE NEGATIVE (NEGATIVE); NITRITE NEGATIVE (NEGATIVE); UROBILINOGEN NORMAL (NORMAL)
[2019-11-13 19:46] LABS: RED CELLS - URINE >50 /hpf (0-5); WHITE CELLS - URINE 25-50 /hpf (NEGATIVE)
[2019-11-13 19:47] LABS: BACTERIA MANY /hpf (NEGATIVE); EPITHELIAL CELLS 0-5 /hpf (0-5)
[2019-11-13 20:00] VITALS: BP 117/51
[2019-11-14] VITALS: BP 119/35
[2019-11-14 04:00] VITALS: BP 107/36
[2019-11-14 07:20] LABS: ALBUMIN 1.9 g/dL (3.4-5.0); ANION GAP 8.4 mmol/L (8-16); BILIRUBIN - TOTAL 4.82 mg/dL (0.2-1.3); CALCIUM 7.8 mg/dL (8.5-10.1); CREATININE - SERUM 1.3 mg/dL (0.6-1.3); MAGNESIUM - SERUM 1.7 mg/dL (1.8-2.4); PHOSPHOROUS 3.6 mg/dL (2.5-4.9); POTASSIUM - SERUM 4.4 mmol/L (3.5-5.1); PROTEIN - SERUM 5.7 g/dL (6.4-8.2)
[2019-11-14 07:22] LABS: BASOPHILS 0.2 % (0-2); EOSINOPHILS 2.3 % (0-7); HEMATOCRIT 21.1 % (36.0-48.0); IMMATURE GRANULOCYTES 1.2 % (0-5); MCH 30.6 pg (26.0-34.0); MCHC 33.6 g/dL (31.0-37.0); MCV 90.9 fL (80.0-100.0); MONOCYTES 15.6 % (2-11); NEUTROPHILS 50.7 % (40-80); RBC 2.32 10x6/uL (4.00-5.40); RDW 22.1 % (11.5-14.5)
[2019-11-14 07:25] LABS: WBC 5.1 10x3/uL (4.8-10.8)
[2019-11-14 07:28] LABS: HEMOGLOBIN 7.1 g/dL (12-16); PLATELET COUNT 27 10x3/uL (130-400)
--- NOTE | 2019-11-14 08:25 | NUR ---
SHE IS SLEEPY THIS MORNING, FEELS WEAK TODAY. GOING TO GET SOME BLOOD TODAY. THE CALL LIGHT IS WITHIN REACH.
[2019-11-14 09:25] VITALS: BP 113/42
--- NOTE | 2019-11-14 09:30 | NUR ---
STARTED THE FIRST UNIT OF BLOOD.
[2019-11-14 09:32] VITALS: BP 117/44
[2019-11-14 09:35] LABS: ANISOCYTOSIS OCC; PLATELET ESTIMATE DECREASED
[2019-11-14 09:36] LABS: HYPOCHROMASIA OCC; ROULEAUX OCC
[2019-11-14 09:40] VITALS: BP 113/41
--- NOTE | 2019-11-14 12:15 | NUR ---
THE FIRST UNIT OF BLOOD HAS INFUSED. VS STABLE.
--- NOTE | 2019-11-14 13:42 | NUR ---
STATRTING HER SECOND UNIT OF BLOOD. MONITORING VS. THE CALL LIGHT IS WITHIN REACH.
[2019-11-14] MEDS ORDERED: LEVOFLOXAC250 MG/50 IV (15:57)
[2019-11-14] MEDS ORDERED: ALBUTEROL2.5 MG/3 M UPD (15:57)
[2019-11-14] MEDS ORDERED: LASIX40 MG PO (16:01)
[2019-11-14] MEDS ORDERED: CHRONULAC30 ML PO (16:01)
[2019-11-14] MEDS ORDERED: VITAMIN D1000 UNIT PO (16:02)
[2019-11-14] MEDS ORDERED: ACETAMINOPHEN500 M1 PO (16:03)
[2019-11-14 20:00] VITALS: BP 114/48
--- NOTE | 2019-11-15 09:24 | MORECARE ---
CASE MANAGEMENT DISCHARGE SUMMARY PATIENT: OBIE ROBBINS UNIT: [id number] ADM DATE: 11/02/19 AGE: 59 : 64 SEX: F ROOM/BED: D.2206 AUTHOR: VIOLET,DOC PHYSICIAN: REFERRING PHYSICIAN: WEI LEVINE MD DATE OF SERVICE: 11/15/19 Discharge Plan Patient Name: OBIE ROBBINS Facility: [facility]:[place] : 1960 Planned Disposition: Home with Home Health Anticipated Discharge Date: Discharge Date: 11/14/2019 Expected LOS: Initial Reviewer: [email or web address] Initial Review Date: 11/02/2019 Generated: 11/15/19 10:23 am Comments DCP- Discharge Planning Updated by [email or web address]: Vilma Robbins on 11/08/19 2:[address] 1510 CM RECEIVED TELEPHONE CALL FROM SUPERVISING LIBRARIAN AT [facility], JUAN JOSE PEPPER. CLINICAL UPDATE GIVEN. SHE HAS ATTEMPED TO SPEAK WITH PATIENT. SHE WILL TRY AGAIN. SHE WANTED TO KNOW THE D/C PLAN. PLAN FOR H/H. SHE STATES THE PATIENT DOES HAVE A BENEFIT FOR REHAB SERVICES. SHE IS CONCERNED SHE STATES THE PATIENT HAS LIMITEDASSISTANCE. SHE WILL FOLLOW UP ON MONDAY. DCP- Discharge Planning Updated by [id number]: Nieves Wiley on 11/05/19 12:[address] Patient Name: OBIE ROBBINS Admission Status: Elective Accout number: [id number] Admission Date: 11-02-2019 : 1960 Admission Diagnosis:WEAKNESS Attending: LINETTE Current LOS: 3 Anticipated DC Date: Planned Disposition: Home with Home Health Primary Insurance: [place] PRIVATE OPTIONS [place] Discharge Planning Comments: CM met with patient to complete initial dc planning assessment. CM educated patient on the CM role and verbal consent given by patient to complete assessment. Patient lives at home alone where she was independent with her care. At discharge patient plans to return home and feels this is a safe discharge. CM discussed availability of home health, rehab services, and medical equipment. The patient asked me to call her sister Man to find out what company and what DME she might needs. She would like a rollator walker, and a shower slide chair. I spoke with Man at length about needs. Man stated that she needs a Rollator, shower slide chair & would like [facility] with a practical nursing teacher. MAXWELL signed and will let July Know. Patient denied known discharge needs at this time. CM will continue to follow and will assist as needed with dc plans/needs. Auto Radiator Specialist: Nieves Wiley DCPIA - Discharge Planning Initial Assessment Updated by [email or web address]: Nieves Wiley on 11/05/19 1:42 pm * Is the patient Alert and Oriented? Yes * How many steps to enter\exit or inside your home? * PCP DR ROJO * Pharmacy [facility] * Preadmission Environment Home Alone * ADLs Independent * Equipment None * List name and contact numbers for known caregivers / representatives who currently or will assist patient after discharge: MAN CHINO (SISTER IN LAW) [phone] * Verbal permission to speak to the caregivers and representatives has been obtained from the patient. Yes * Community resources currently utilized None * Additional services required to return to the preadmission environment? Yes * Can the patient safely return to the preadmission environment? Yes * Has this patient been hospitalized within the prior 30 days at any hospital? Yes Coverage Notice Reviewer: [id number] - Lori Jackman Notice Issued Date-Time: 11/05/2019 14:32 Notice Type: Patient Choice Letter Notice Delivered To: Patient Relationship to Patient: Self Zigzag Stitcher Name: Obie Robbins Delivery Method: HAND - Hand Delivered Susana Days: Prior Verbal Notification: Recipient Understood Notice: Yes Recipient Signature: Yes Med Rec Note Co-signed by Attending: Coverage Notice Comment: DME and HHS with [facility] signed 11/04 Last DP export: 11/08/19 2:38 p Patient Name: OBIE ROBBINS Page [id number] at 0924 All edits/amendments must be made on the electronic document DICTATION DATE: 11/15/19922 PIZZA DELIVERY: CARMEN 11/15/19922 RPT#: [id number] DC DATE:11/14/19 STATUS: DIS IN [facility] [address] [place] [address] END OF REPORT
== END 2019-11-14 23:31 | DRG 432 ==
LOC: D.MS 18:25
PROVIDERS: Emergency Medicine; Family Medicine; ADMIT Family Medicine; ATTEND Family Medicine
DX: K74.60 Unspecified cirrhosis of liver (principal); K72.00 Acute and subacute hepatic failure without coma; D61.818 Other pancytopenia; E87.1 Hypo-osmolality and hyponatremia; R18.8 Other ascites; N17.9 Acute kidney failure, unspecified; J45.909 Unspecified asthma, uncomplicated; K59.00 Constipation, unspecified; R00.0 Tachycardia, unspecified; E11.22 Type 2 diabetes mellitus with diabetic chronic kidney disease; I12.9 Hypertensive chronic kidney disease with stage 1 through stage 4 chronic kidney disease, or unspecified chronic kidney disease; N18.3 Chronic kidney disease, stage 3 (moderate); D63.1 Anemia in chronic kidney disease

== ENCOUNTER 2019-11-14 23:46 | Inpatient (IN) | payer MEDICAID ==
[~2019-11-14] VITALS: Ht 154.9 cm; Wt 91.5 kg
[~2019-11-14 23:46] MED LIST changes: +ACETAMINOPHEN500 M1 PO; +ALBUTEROL2.5 MG/3 M UPD; +CHRONULAC30 ML PO; +LEVOFLOXAC250 MG/50 IV; +VITAMIN D1000 UNIT PO
--- NOTE | 2019-11-15 00:01 | NUR ---
ADMIT THIS PATIENT TO PHYSICAL REHAB AND SERVICES OF DR SONG. AWAKE AND ALERT. RESPIRATIONS UNLABORED. SEE ADMISSION ASSESSMENT. NOTED JAUNDICE SKIN. DENIES PAIN. STAND BY ASSISTANCE FOR MOBILITY AND TRANSFERS. CALL LIGHT IN REACH.
[2019-11-15 00:07] VITALS: BP 142/55; BMI 39.7
[2019-11-15 01:27] LABS: BILIRUBIN NEGATIVE (NEGATIVE); GLUCOSE NEGATIVE (NEGATIVE); KETONE NEGATIVE (NEGATIVE); NITRITE NEGATIVE (NEGATIVE); UROBILINOGEN 8 mg/dL (NORMAL)
[2019-11-15 01:33] LABS: BACTERIA FEW /hpf (NEGATIVE); EPITHELIAL CELLS 0-5 /hpf (0-5); WHITE CELLS - URINE 0-5 /hpf (NEGATIVE)
--- NOTE | 2019-11-15 02:19 | NUR ---
RESTING IN BED WITH EYES CLOSED AND RESPIRATIONS ULABORED. NO DISTRESS NOTED. GUTIERRES PATENT.
--- NOTE | 2019-11-15 04:15 | NUR ---
RESTING IN BED WITH RESPIRATIONS UNLABORED. STATES SHE IS "FINE" NO DISTRESS NOTED.
--- NOTE | 2019-11-15 05:15 | NUR ---
AWAKE AND RESTING IN BED. NO DISTRESS NOTED. RESPIRATIONS UNLABORED.
[2019-11-15 07:13] LABS: BASOPHILS 0.3 % (0-2); EOSINOPHILS 1.7 % (0-7); IMMATURE GRANULOCYTES 2.8 % (0-5); MCH 31.7 pg (26.0-34.0); MCV 90.5 fL (80.0-100.0); MONOCYTES 13.1 % (2-11); NEUTROPHILS 63.1 % (40-80); RDW 20.6 % (11.5-14.5)
[2019-11-15 07:18] LABS: HEMATOCRIT 27.7 % (36.0-48.0); HEMOGLOBIN 9.7 g/dL (12-16); RBC 3.06 10x6/uL (4.00-5.40); WBC 7.1 10x3/uL (4.8-10.8)
[2019-11-15 07:19] LABS: PLATELET COUNT 30 10x3/uL (130-400)
[2019-11-15 07:20] LABS: ANION GAP 11.1 mmol/L (8-16); CALCIUM 8.3 mg/dL (8.5-10.1); CARBON DIOXIDE 24.5 mmol/L (21.0-32.0); CREATININE - SERUM 1.2 mg/dL (0.6-1.3); POTASSIUM - SERUM 4.6 mmol/L (3.5-5.1)
--- NOTE | 2019-11-15 07:35 | NUR ---
RESTING QUIETLY POSITIONED ON LEFT SIDE. A/A/OX4. DENIES ANY PAIN OR DISCOMFORT. SIDERAILS UP X 2, CALL LIGHT IN REACH AND BED IN LOW, LOCKED POSITION.
[2019-11-15 07:41] VITALS: BP 116/71
[2019-11-15 13:43] VITALS: BMI 34.0
[2019-11-15 14:26] VITALS: Ht 154.9 cm; Wt 91.5 kg
[2019-11-15 22:05] VITALS: BP 131/38
--- NOTE | 2019-11-16 04:05 | NUR ---
PT ASLEEP NO NEEDS NOTED, AROUSES EASILY TO VOICE, FALL PRECAUTIONS IN PLACE, FLUIDS/CALL LIGHT WITHIN REACH
[2019-11-16 06:28] LABS: HEMATOCRIT 25.9 % (36.0-48.0); HEMOGLOBIN 8.9 g/dL (12-16); MCH 31.7 pg (26.0-34.0); MCHC 34.4 g/dL (31.0-37.0); MCV 92.2 fL (80.0-100.0); RBC 2.81 10x6/uL (4.00-5.40); RDW 20.5 % (11.5-14.5); WBC 5.8 10x3/uL (4.8-10.8)
[2019-11-16 06:35] LABS: ANION GAP 8.3 mmol/L (8-16); CALCIUM 8.3 mg/dL (8.5-10.1); CARBON DIOXIDE 24.2 mmol/L (21.0-32.0); CREATININE - SERUM 1.2 mg/dL (0.6-1.3); PLATELET COUNT 42 10x3/uL (130-400); POTASSIUM - SERUM 4.5 mmol/L (3.5-5.1)
[2019-11-16 07:00] LABS: LYMPHOCYTES 17 % (15-50); NEUTROPHILS 83 % (40-80); PLATELET ESTIMATE DECREASED
[2019-11-16 07:01] LABS: SCHISTOCYTES OCC; TARGET CELLS OCC; TEAR DROP CELLS 1+
[2019-11-16 08:00] VITALS: BP 146/68
--- NOTE | 2019-11-16 15:32 | NUR ---
RESTING QUIETLY IN BED. SKIN IS YELLOW. CALL LIGHT IN REACH
[2019-11-16 21:52] VITALS: BP 118/41
--- NOTE | 2019-11-16 23:33 | NUR ---
PT UP TO TOILET OBSESSED WITH DEFICATION, PT DID NOT REMEMBER OR REALIZE THAT THEY HAD A BM ON 11/14, PT ON LACTULOSE 15ML BID, NO FREE H2O ORDERED RESTRICTIONS, CALL LIGHT WITHIN REACH
[2019-11-17 06:22] LABS: ANION GAP 10.3 mmol/L (8-16); CALCIUM 8.4 mg/dL (8.5-10.1); CARBON DIOXIDE 24.1 mmol/L (21.0-32.0); CREATININE - SERUM 1.1 mg/dL (0.6-1.3); POTASSIUM - SERUM 4.4 mmol/L (3.5-5.1)
[2019-11-17 06:33] LABS: HEMOGLOBIN 8.6 g/dL (12-16); LYMPHOCYTES 22.8 % (15-50); MCHC 33.1 g/dL (31.0-37.0); MCV 93.9 fL (80.0-100.0); NEUTROPHILS 66.7 % (40-80); RBC 2.77 10x6/uL (4.00-5.40); RDW 21.1 % (11.5-14.5); WBC 4.6 10x3/uL (4.8-10.8)
[2019-11-17 06:37] LABS: PLATELET COUNT 25 10x3/uL (130-400)
[2019-11-17 06:43] LABS: PLATELET ESTIMATE DECREASED
[2019-11-17 10:09] VITALS: BP 114/50
--- NOTE | 2019-11-17 12:43 | NUR ---
FAMILY IN ROOM WITH PT. PT WAS GIVEN A SHOWER AND CLOTHES CHANGED. HER F/C IS STILL DRAINING CRANBERRY COLORED URINE.
--- NOTE | 2019-11-17 18:21 | NUR ---
STILL HAVING DARK URINE THAT LOOKS MORE LIKE MOLASSES THAN CRANBERRY NOW. HER SKIN IS BRONZE AND EYES ARE YELLOW. SHE IS WEAK BUT CAN TRANSFER TO AND BACK TO BED. CALL LIGHT IN REACH, BED IN LOWEST POSITION, SIDE RAILS UP X2.
--- NOTE | 2019-11-17 19:30 | NUR ---
PT RECEIVED WITH EYES CLOSED AND CHEST RISING. NO NEEDS OR CONCERNS NOTED AT THIS TIME. CALL LIGHT IN REACH. WILL CONTINUE TO OBSERVE.
[2019-11-17 20:00] VITALS: BP 124/51
--- NOTE | 2019-11-18 00:57 | NUR ---
ASSIST GIVEN WITH REPOSITIONING. NO NEEDS MADE KNOWN AT THIS TIME. CALL LIGHT IN REACH. WILL CONTINUE TO OBSERVE.
--- NOTE | 2019-11-18 02:56 | NUR ---
PT WITH EYES CLOSED AND CHEST RISING. NO S/S OF DISTRESS NOTED. CALL LIGHT IN REACH. WILL CONTINUE TO OBSERVE.
--- NOTE | 2019-11-18 06:44 | NUR ---
PT TO BATHROOM VIA WHEELCHAIR. MEDIUM SOFT FORMED WITH SOME REDDNESS NOTED TO COLOR. WILL REPORT TO ONCOMING NURSE.
[2019-11-18 08:00] VITALS: BP 126/46
[2019-11-18 08:17] LABS: ALBUMIN 1.7 g/dL (3.4-5.0); ANION GAP 12.5 mmol/L (8-16); BILIRUBIN - TOTAL 4.56 mg/dL (0.2-1.3); CALCIUM 8.4 mg/dL (8.5-10.1); CARBON DIOXIDE 22.4 mmol/L (21.0-32.0); CREATININE - SERUM 1.1 mg/dL (0.6-1.3); POTASSIUM - SERUM 4.9 mmol/L (3.5-5.1); PROTEIN - SERUM 5.9 g/dL (6.4-8.2)
[2019-11-18 08:28] LABS: HEMATOCRIT 26.4 % (36.0-48.0); HEMOGLOBIN 8.9 g/dL (12-16); LYMPHOCYTES 28.4 % (15-50); MCH 31.8 pg (26.0-34.0); MCHC 33.7 g/dL (31.0-37.0); MCV 94.3 fL (80.0-100.0); NEUTROPHILS 57.5 % (40-80); RDW 21.2 % (11.5-14.5); WBC 3.8 10x3/uL (4.8-10.8)
[2019-11-18 08:51] LABS: PLATELET COUNT 31 10x3/uL (130-400)
--- NOTE | 2019-11-18 12:10 | NUR ---
SPOKE WITH DAVY AT [facility]NAL CLINIC AND LEFT MESSAGE FOR HUMAN RESOURCES BENEFITS MANAGER TO CALL NURSE BACK.....PT HAS BLODDY (CRANBERRY COLORED) URINE COMING INTO GUTIERRES BAG. PT HAMILTON CONSULT WITH DR CERVANTES, UROLOGIST, TO ADDRESS BLODDY URINE. DR CERVANTES CALLD THIS MORNING BY THIS NURSE AND DR CERVANTES SAID HE WAS NOT TAKING CONSULTS AT [facility] FOR TWO MONTHS BUT PT COULD SEE HIM IN CLINIC OR COME TO [facility]. PT NOTIFIED OF INFORMATION. SHE ALREADY HAS A UROLOGIST BUT HE DOES NOT HAVE PRIVILIDGES AT [facility].
--- NOTE | 2019-11-18 12:13 | NUR ---
PATIENT ADMITTED TO REHAB FROM ACUTE FLOOR. PCP IS DR. ROJO, SHE HAS CHOSEN [employer] [facility]. SHE HAS REQUESTED TO HAVE A ROLLATOR, SHOWER SLIDE CHAIR. WILL CONTINUE TO FOLLOW WITH PATIENT AND ASSIST WITH NEEDS.
--- NOTE | 2019-11-18 12:39 | NUR ---
Nutrition Follow-up: Diet: Regular; NO FREE WATER PO intake: ~62% average x last 13 meals; she reports that her appetite is poor but states that family is bring foods in from outside. She requested [address] notes that she has a NO FREE WATER order in chart so I did not get them for her. I did note several cans of sprite on bedside table. Last BM: 11/18/19. Wt: 184# (11/18/19); Admit wt: 180# (11/15/19) Meds noted: lactulose, lasix Labs noted: NH3 45(H), Alk Phos 198(H), AST 47(H), BUN 23(H), Na 135(L), tbili 4.56(H), Alb 1.7(L) Recommend continue current diet considering she is eating outside food anyway. May need sodium restrictions for ascites. Continue NO FREE WATER fluid restriction or per . RD following.
--- NOTE | 2019-11-18 17:38 | NUR ---
SPOKE WITH DARYL MCCLAIN FOR RENAL DR'S. SARAHI HAD SPOKEN TO PT'S REGULAR UROLOGIST IN [facility] AND RELAYED PT CURRENT STATUS TO HIM. HIS INSTRUCTIONS WERE THAT HE WOULD SEE HER IN HIS CLINIC AN OUT PATIENT CLIENT FOR BLOODY URINE. PT HAD ULTRASOUND TODAY OF KIDNEYS AND BLADDER AND RESULTS READ TO DARYL MCCLAIN OVER THE PHONE.
[2019-11-18 18:53] LABS: BILIRUBIN NEGATIVE (NEGATIVE); GLUCOSE NEGATIVE (NEGATIVE); KETONE NEGATIVE (NEGATIVE); NITRITE NEGATIVE (NEGATIVE); UROBILINOGEN NORMAL (NORMAL)
[2019-11-18 18:54] LABS: BACTERIA FEW /hpf (NEGATIVE); EPITHELIAL CELLS 0-5 /hpf (0-5); RED CELLS - URINE 25-50 /hpf (0-5)
--- NOTE | 2019-11-18 19:56 | NUR ---
AWAKE AND ALERT. RESTING IN BED WITH RESPIRATIONS UNLABORED. NO DISTRESS NOTED. GUTIERRES PATENT. SKIN JAUNDICE. CALL LIGHT IN REACH.
[2019-11-18 21:53] VITALS: BP 131/50
--- NOTE | 2019-11-19 02:28 | NUR ---
ASSISTED TO BATHROOM HAD SMALL BM WITH NOTED BLOOD FROM HEMORRHOIDS. GUTIERRES CATHETER TUBING NOTED HANGING OUT OF URETHRA WITH BULB DEFLATED. PATIENT STATES SHE DOESNT KNOW HOW THAT HAPPENED. GUTIERRES REMOVED AND EMPTIED OF 300 BLOOD TINGED URINE. WILL LEAVE OUT FOR NOW AND MONITOR ABILITY TO VOID OVER NEXT FOUR HOURS. WILL NOTIFY RENAL ON AM ROUNDS. MESSAGE LEFT ON ROUNDING SHEET FOR DR SONG.
--- NOTE | 2019-11-19 05:10 | NUR ---
RESTING IN BED. HAS NOT VOIDED YET. WILL CONTINUE TO MONITOR.
--- NOTE | 2019-11-19 06:29 | NUR ---
ASSISTED TO BATHROOM. VOIDED LARGE AMOUNT OF URINE WITHOUT DIFFICULTY. ONLY HAD ONE SMALL BM THIS SHIFT.
[2019-11-19 08:00] VITALS: BP 126/48
--- NOTE | 2019-11-19 13:00 | NUR ---
I have reviewed this patient and I concur with the Shift Assessment completed by the Licensed Practical Nurse today this shift.
--- NOTE | 2019-11-19 19:54 | NUR ---
AWAKE AND ALERT. SITTING ON SIDE OF BED. RESPIRATIONS UNLABORED. SKIN JAUNDICED. RIGHT INNER ARM SALINE LOCK INTACT. NO DISTRESS NOTED. CALL LIGHT IN REACH.
[2019-11-19 21:16] VITALS: BP 119/50
--- NOTE | 2019-11-20 02:09 | NUR ---
SLEEPING WITH RESPIRATIONS UNLABORED. NO DISTRESS NOTED. CALL LIGHT IN REACH.
--- NOTE | 2019-11-20 04:30 | NUR ---
ASSISTED TO BATHROOM AND THEN WEIGHED. WEIGHT 187# 4 OZ. PATIENT HAS HAD BACK PAIN WHICH WAS TREATED WITH TYLENOL AND A WARM PAD EARLIER IN SHIFT AND HAD SOME INITIAL RELIEF BUT CONTINUES TO "NOT FEEL GOOD" ADJUSTED WITH PILLOWS IN BED FOR COMFORT. NOTED HEMATURIA CONTINUES.
--- NOTE | 2019-11-20 05:18 | NUR ---
RESTING QUIETLY NOW WITH RESPIRATIONS UNLABORED. RIGHT INNER ARM JUST ABOVE WRIST SALINE LOCK INTACT.
[2019-11-20 08:00] VITALS: BP 135/54
[2019-11-20 08:53] LABS: ANION GAP 9.2 mmol/L (8-16); CALCIUM 8.5 mg/dL (8.5-10.1); CARBON DIOXIDE 22.3 mmol/L (21.0-32.0); POTASSIUM - SERUM 4.5 mmol/L (3.5-5.1)
[2019-11-20 09:26] LABS: BASOPHILS 0.6 % (0-2); EOSINOPHILS 1.5 % (0-7); HEMATOCRIT 23.9 % (36.0-48.0); HEMOGLOBIN 7.9 g/dL (12-16); IMMATURE GRANULOCYTES 0.9 % (0-5); MCH 30.9 pg (26.0-34.0); MCHC 33.1 g/dL (31.0-37.0); MCV 93.4 fL (80.0-100.0); MONOCYTES 12.3 % (2-11); NEUTROPHILS 55.7 % (40-80); RBC 2.56 10x6/uL (4.00-5.40); WBC 3.4 10x3/uL (4.8-10.8)
[2019-11-20 09:27] LABS: PLATELET COUNT 32 10x3/uL (130-400)
--- NOTE | 2019-11-20 16:35 | NUR ---
CARE TEAM MEETING: PATIENT IS SLOWLY PROGRESSING IN THERAPY. HER TENATIVE DISCHARGE DATE IS 11/27/19. WILL CONTINUE TO FOLLOW WITH PATIENT.
--- NOTE | 2019-11-20 19:47 | NUR ---
PT ON PHONE, TOILETED PT, NO OTHER NEEDS NOTED, NO FREE H2O AT BEDSIDE, FLUIDS/CALL LIGHT WITHIN REACH
[2019-11-20 20:59] VITALS: BP 125/47
--- NOTE | 2019-11-21 01:20 | NUR ---
PT ASLEEP, NO NEEDS NOTED, FLUIDS/CALL LIGHT WITHIN REACH
--- NOTE | 2019-11-21 06:26 | NUR ---
PT SITTING UP IN BED AWAKE AND ALERT. DENIES ANY NEEDS OR PAIN. CALL LIGHT WITHIN REACH. FALL PRECAUTIONS IN PLACE. CPOC
[2019-11-21 08:00] VITALS: BP 116/51
[2019-11-21 21:38] VITALS: BP 104/50
--- NOTE | 2019-11-21 22:00 | NUR ---
CHANGED PT'S IV DRESSING, PATENT, ADHERED TO SKIN, NOTED NO BLOOD DRAW BACK DURING FLUSH
--- NOTE | 2019-11-21 23:13 | NUR ---
PT WITH FAMILY IN ROOM, A&O, NO NEEDS NOTED, FLUIDS/CALL LIGHT WITHIN REACH
--- NOTE | 2019-11-22 04:01 | NUR ---
PT IN BED ASLEEP, AROUSES EASILY, NO NEEDS NOTE, FLUIDS/CALL LIGHT WITHIN REACH, FALL PRECAUTIONS ARE IN PLACE WHEN WARRANTED
[2019-11-22 06:47] LABS: BASOPHILS 0.3 % (0-2); EOSINOPHILS 0.9 % (0-7); HEMATOCRIT 22.7 % (36.0-48.0); HEMOGLOBIN 7.7 g/dL (12-16); IMMATURE GRANULOCYTES 0.6 % (0-5); LYMPHOCYTES 32.2 % (15-50); MCH 31.2 pg (26.0-34.0); MCHC 33.9 g/dL (31.0-37.0); MCV 91.9 fL (80.0-100.0); MONOCYTES 18.5 % (2-11); NEUTROPHILS 47.5 % (40-80); RBC 2.47 10x6/uL (4.00-5.40); RDW 20.6 % (11.5-14.5); WBC 3.5 10x3/uL (4.8-10.8)
[2019-11-22 06:49] LABS: ALBUMIN 1.5 g/dL (3.4-5.0); ANION GAP 9.1 mmol/L (8-16); BILIRUBIN - TOTAL 3.6 mg/dL (0.2-1.3); CALCIUM 7.9 mg/dL (8.5-10.1); POTASSIUM - SERUM 4.1 mmol/L (3.5-5.1); PROTEIN - SERUM 5.5 g/dL (6.4-8.2)
--- NOTE | 2019-11-22 06:49 | NUR ---
PT C/O BACK/SHOULDER/HIP PAIN 7 OF 10, TYLENOL IS ALL THIS PT HAS, VERY RARE THAT SHE C/O PAIN AT ALL, DOESN'T LIKE TO TAKE PAIN MEDS DUE TO LIVER ISSUES, PT WILL LAY AND SUFFER BEFORE SHE COMPLAINS
[2019-11-22 06:52] LABS: PLATELET COUNT 36 10x3/uL (130-400)
[2019-11-22 08:00] VITALS: BP 120/50
--- NOTE | 2019-11-22 11:45 | NUR ---
TRANSFERS SELF TO TOILET FROM . NO BLOOD IN STOOL NOTED THIS AM.
--- NOTE | 2019-11-22 12:25 | RHP ---
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 HISTORY OF PRESENT ILLNESS: The patient is a 59-year-old female patient, has got a history of end-stage liver disease and cirrhosis, she has got a history of thrombocytopenia, diabetes, neuropathy, and hypothyroidism. She was originally admitted to the [facility] from our rehab facility on 10/28/2019 and transferred [facility] for gastroenterology consultation for suspected GI bleed. The patient had one endoscopy at [facility] and was found to have hemorrhoids without any signs or symptoms of acute gastrointestinal bleed. She was transferred back to our facility as per transfer back agreement with weakness and possible rehabilitation services. She originally came in for epigastric pain on 10/13/2019, had a workup for cirrhosis. She had prolonged acute hospital stay. She was transferred to [facility] for GI bleeding. She has been followed by oncology, GI and nephrology through her stay. She needs to be monitored closely on telemetry. She has had tachycardia. Her weight and abdominal girth have to be measured on a regular basis secondary to ascites. She was on IV antibiotic therapy, pain control. We will watch her for any signs of changes in her mental status, watching her ammonia level, monitoring CBC closely because of her decreased platelets. We have oncology here if we need. She is on electrolyte protocol. She has got balance deficits, decreased activity tolerance, impaired mobility, decreased range of motion, decreased strength, limited safety awareness. She fatigues easily, got inability to care for herself and self-care deficits. These are all barriers to her discharge home. Lives at home alone, has had multiple falls, was independent with ADLs and mobility prior to this. She is currently set up for mod assist for ADLs and mod assist with her mobility. She plans to return home at her prior level of functioning or better. COMORBIDITIES: Include weakness, acute kidney disease, tukqf-it-iwxpiab kidney disease, thrombocytopenia, cirrhosis of the liver, normocytic anemia, pancytopenia, hyponatremia, hypertension and asthma. PAST MEDICAL HISTORY: Significant for cirrhosis, weakness, depression, tobacco use, kidney stones, asthma, thyroid problems. PAST SURGICAL HISTORY: Includes a hysterectomy and tonsillectomy. ALLERGIES: PENICILLIN, SULFA AND MACROBID. CURRENT MEDICATIONS: Include Levaquin, she is given a total of 7 doses of 250 mg IV; she is on Floranex 1 tab daily; spironolactone 100 mg daily; she is on Lyrica 25 mg t.i.d.; she is on potassium 20 mEq daily; Nicoderm patch 14 mg daily; lactulose 15 cc b.i.d.; furosemide 40 mg b.i.d.; Protonix 40 mg daily; Toprol-XL 12.5 mg daily; Ventolin updrafts as needed and Tylenol 500 mg every 6 hours p.r.n. HABITS: Does have a history of tobacco and alcohol use in the past. FAMILY HISTORY: Noncontributory. HISTORY AND PHYSICAL [id number] OBIE JARAMILLO SOCIAL HISTORY: The patient hopes to return back home and get back to her prior level of functioning. REVIEW OF SYSTEMS: GENERAL: Does complain of weakness and fatigue. HEENT: Denies cold, cough, or congestion. CARDIOVASCULAR: Denies any chest pain. PHYSICAL EXAMINATION: VITAL SIGNS: Stable, afebrile. GENERAL: An obese female in no distress upon exam. HEENT: Normocephalic and atraumatic. Mucosa moist. NECK: Supple, with no lymphadenopathy. LUNGS: Clear in upper kline. No wheeze, rhonchi or rales. HEART: Regular rate and rhythm. No murmurs, rubs or gallops. ABDOMEN: Soft, benign. She does have a noted fluid wave and ascites. EXTREMITIES: No clubbing, cyanosis or edema. NEUROLOGIC: She is a little bit slow to mentate. LABORATORY DATA: Her white count is 7.1, H&H of 9.7 and 27.7, platelet count was 30,000. Sodium 132, potassium 4.6, BUN and creatinine of 21 and 1.2, and blood sugar is noted to be 109. Her admit UA did show protein and blood in her urine and trace leukocyte esterase. ASSESSMENT: This is a 59-year-old female patient admitted to rehab with a working diagnosis of hepatic encephalopathy. The patient has potential to make improvement. We instituted the following multidisciplinary therapies including, but not limited to physical, occupational, respiratory, speech, nutritional services, prosthetics and orthotics. Given her complex medical condition and risks for more complications, rehabilitation services cannot be provided at a low level of care such as retirement facility. PLAN: 1. Admit to [facility] for inpatient therapy to include the following disciplines: A. Physical therapy to improve gait, all transfer skills and bed mobility to a modified independent level. B. Occupational therapy to improve activities of daily living. C. Case management to help with discharge planning and placement options. D. Nutrition to assist with nutritional needs. E. Rehabilitation nursing to assist in monitoring the patient's underlying medical condition and to assist with any type of bowel or bladder management. 2. The patient's current medication and medical care will be continued. 3. The patient will be placed on standard fall precautions. 4. The patient's estimated length of stay is approximately 7-10 days. 5. We will watch her ammonia levels closely. We will continue to watch her platelets and blood count. I will get oncology to see as needed. The patient does have a consultation per nephrology and they will see her throughout her stay. TRANSINT:[id number] Voice Confirmation ID: [id number] DOCUMENT ID: [id number] VINAY notes whether there has been none or any medical/functional HISTORY AND PHYSICAL [id number] OBIE JARAMILLO change since admission: - No change since prescreen. VINAY attests patient continues to be appropriate for IRF: - Continues to be appropriate. BELEN SONG MD at 1225 CC: [id number] DICTATION DATE: 11/15/19 0829 MANAGER NURSING HOME: 11/15/19 1016 ADM IN [facility] [address] [id number]
--- NOTE | 2019-11-22 13:44 | NUR ---
SIGNED BED WAIVER. DENIES NEEDS OR C/O. FEELS STRONGER AND IS HAVING MORE BM'S. DRINKS VERY LITTLE WATER. MOSTLY WITH MEDS. EATS A FEW ICE CHIPS AT TIMES BUT LIMITS FREE WATER.
--- NOTE | 2019-11-22 16:12 | NUR ---
Nutrition Follow-up: Diet: Regular PO intake: 75-100% x all meals Last BM: 11/22/19 x 2. WT: 191# (11/22/19); Admit Wt: 180# (11/15/19) Meds noted: lasix, k-dur, lactulose. Labs noted: NH3 66(L), Alb 1.5(L) Consider restricting diet to low sodium to help with fluid. Note patient's family previously bringing foods in from outside hospital. RD following.
--- NOTE | 2019-11-22 20:02 | NUR ---
AWAKE AND ALERT. RESTING IN BED. NEW IV IS IN RIGHT AC. FIRST UNIT PRBC INFUSING WITH NO SIGNS OF ADVERSE REACTION. SKIN JAUNDICED. NO ACUTE DISTRESS NOTED. CALL LIGHT IN REACH.
--- NOTE | 2019-11-22 20:40 | NUR ---
FIRST UNIT OF PRBC COMPLETE. NO SIGNS OR SYMPTOMS OF ADVERSE REACTION NOTED. AFEBRILE. RESPIRAITONS UNLABORED.
[2019-11-22 21:41] VITALS: BP 140/55
[2019-11-22 21:50] VITALS: BP 114/40
--- NOTE | 2019-11-22 21:55 | NUR ---
SECOND UNIT OF PRBC STARTED AFTER VERIFYING IDENTIFYING MARKERS WITH SECOND RN. SIGNS AND SYMPTOMS OF ADVERSE REACTION REVIEWED WITH PATIENT. SHE VOICES UNDERSTANDING. IV SITE TO RIGHT AC SHOWS NO SIGNS IF INFILTRATION.
[2019-11-22 22:05] VITALS: BP 102/35
[2019-11-22 22:45] VITALS: BP 114/45
--- NOTE | 2019-11-23 00:17 | NUR ---
SECOND UNIT OF PRBC COMPLETE. NO SIGNS OR SYMPTOMS OF ADVERSE REACTION NOTED. AFEBRILE. RESPIRAITONS UNLABORED. SALINE LOCK TO RIGHT AC SITE FLUSHED AND SECURED WITH TAPE.
[2019-11-23 01:17] VITALS: BP 111/46
--- NOTE | 2019-11-23 03:31 | NUR ---
SLEEPING WITH NO DISTRESS NOTED.
--- NOTE | 2019-11-23 05:32 | NUR ---
RESTING QUIETLY. RESPIRAITONS UNLABORED. NO DISTRESS NOTED.
[2019-11-23 07:17] LABS: BASOPHILS 0.5 % (0-2); EOSINOPHILS 0.9 % (0-7); IMMATURE GRANULOCYTES 1.4 % (0-5); LYMPHOCYTES 37.4 % (15-50); MCH 31.1 pg (26.0-34.0); MCHC 33.6 g/dL (31.0-37.0); MCV 92.4 fL (80.0-100.0); MONOCYTES 10.9 % (2-11); NEUTROPHILS 48.9 % (40-80); RDW 20.5 % (11.5-14.5); WBC 4.3 10x3/uL (4.8-10.8)
[2019-11-23 07:28] LABS: HEMATOCRIT 31.8 % (36.0-48.0); HEMOGLOBIN 10.7 g/dL (12-16); RBC 3.44 10x6/uL (4.00-5.40)
[2019-11-23 07:30] LABS: PLATELET COUNT 40 10x3/uL (130-400)
[2019-11-23 08:00] VITALS: BP 122/51
[2019-11-23 08:19] LABS: PLATELET ESTIMATE DECREASED
--- NOTE | 2019-11-23 14:06 | NUR ---
SITTING UP IN WC IN ROOM TALKING WITH VISITOR. SHE TIRES EASILY BUT DOES MOST TASKS FOR HERSELF, JUST SLOWLEY. DENIES INCREASED PAIN. URINE STILL HAS BLOOD IN IT.
--- NOTE | 2019-11-23 16:26 | NUR ---
RESTING QUIETLY IN BED WATCHING TV. HAD SHOWER AND HAIR FIXED. DENIES NEEDS. BLE ARE 4+. BLE ALSO ELEVATED. CALL LIGHT IN REACH. BED IN LOWEST POSITION, SIDE RAILS UP X2. PATH TO BATHROOM CLEAR. WAITING ON URINE FOR UA
[2019-11-23 19:02] LABS: NITRITE NEGATIVE (NEGATIVE)
[2019-11-23 19:03] LABS: BILIRUBIN NEGATIVE (NEGATIVE); GLUCOSE NEGATIVE (NEGATIVE); KETONE NEGATIVE (NEGATIVE); UROBILINOGEN NORMAL (NORMAL)
[2019-11-23 19:04] LABS: BACTERIA FEW /hpf (NEGATIVE); EPITHELIAL CELLS 0-5 /hpf (0-5); RED CELLS - URINE >50 /hpf (0-5)
--- NOTE | 2019-11-23 19:25 | NUR ---
AWAKE AND ALERT. VISITING WITH AUNT. RESPIRATIONS UNLABORED. NO ACUTE DISTRESS NOTED.
[2019-11-23 20:01] VITALS: BP 135/49
--- NOTE | 2019-11-23 22:00 | NUR ---
RESTING IN BED WITH EYES CLOSED AND RESPIRAITONS UNLABORED. NO DISTRESS NOTED.
--- NOTE | 2019-11-24 00:05 | NUR ---
CONTINUES SLEEPING WITH RESPIRAITONS UNLABORED. NO DISTRESS NOTED.
--- NOTE | 2019-11-24 02:56 | NUR ---
EYES CLOSED AND RESPIRATIONS UNLABORED AT 20/MINUTE. NO DISTRESS NOTED.
--- NOTE | 2019-11-24 05:56 | NUR ---
QUIET HOURS. NO ACUTE CHANGES IN CONDITION THIS SHIFT. RESTING IN BED WITH NO DISTRESS NOTED.
[2019-11-24 07:15] VITALS: BP 108/54
--- NOTE | 2019-11-24 07:30 | NUR ---
PATIENT AWAKE AND SITTING UP IN BED. ORIENTED. NO COMPLAINTS. DENIES HAVING ANY PAIN OR NEEDS AT THIS TIME. CONTINUE PLAN OF CARE.
--- NOTE | 2019-11-24 19:40 | NUR ---
AWAKE AND ALERT. RESPIRATIONS UNLABORED AT REST. SOME SHORTNESS OF BREATH WITH EXERTION. HAD INCONTINENCE EPISODE OF URINE IN BED. BED LINENS CHANGED AND ASSISTED TO BATHROOM TO CHANGE BRIEF AND NIGHT GOWN. BACK IN WHEELCHAIR NO DISTRESS NOTED.
[2019-11-24 19:43] VITALS: BP 140/51
--- NOTE | 2019-11-24 21:30 | NUR ---
RESTING IN BED WATCHING TV. NO DISTRESS NOTED.
--- NOTE | 2019-11-24 23:29 | NUR ---
SLEEPING WITH NO DISTRESS NOTED.
--- NOTE | 2019-11-25 02:01 | NUR ---
CONTINUES SLEEPING WITH NO DISTRESS NOTED,.
--- NOTE | 2019-11-25 03:32 | NUR ---
HAD PARTIALLY INCONTINENT EPISODE OF URINE TRYING TO GET TO TOILET. SHE THINKS ITS BECAUSE OF THE ALDACTONE. ASSISTED TO CHANGE BRIEFS. AM WEIGHT DONE. WEIGHT 200LBS AND 8 OUNCES. MESSAGE ABOUT WEIGHT GAIN LEFT ON ROUNDING SHEET FOR DR SONG.
[2019-11-25 07:33] LABS: BASOPHILS 0.4 % (0-2); EOSINOPHILS 1.6 % (0-7); HEMATOCRIT 28.4 % (36.0-48.0); HEMOGLOBIN 9.5 g/dL (12-16); IMMATURE GRANULOCYTES 0.8 % (0-5); LYMPHOCYTES 30.2 % (15-50); MCH 30.8 pg (26.0-34.0); MCHC 33.5 g/dL (31.0-37.0); MCV 92.2 fL (80.0-100.0); MONOCYTES 14.7 % (2-11); NEUTROPHILS 52.3 % (40-80); RBC 3.08 10x6/uL (4.00-5.40); WBC 5.2 10x3/uL (4.8-10.8)
[2019-11-25 07:35] LABS: PLATELET COUNT 40 10x3/uL (130-400)
[2019-11-25 07:48] LABS: ANION GAP 8.6 mmol/L (8-16); CALCIUM 8.3 mg/dL (8.5-10.1); CREATININE - SERUM 0.9 mg/dL (0.6-1.3); POTASSIUM - SERUM 4.6 mmol/L (3.5-5.1)
[2019-11-25 08:00] VITALS: BP 121/49
--- NOTE | 2019-11-25 16:50 | NUR ---
LAYING IN BED WATCHING TV. HAS NOT FELT GOOD TODAY AND TIRES EASILY. SKIN BULLARD BROWN ALL OVER, WHITES OF EYES ARE YELLOW. ABLE TO STAND AND TRANSFER BACK AND FORTH BETWEEN BED, WC AND TOILET.
--- NOTE | 2019-11-25 19:55 | NUR ---
PT UP IN HALLWAY VIA WC AT THIS TIME
--- NOTE | 2019-11-25 20:30 | NUR ---
ASSESSMENT PER FLOW SHEET, VS OBTAINED PER CAR TESTER, PT DENIES NEEDS OR PAIN AT THIS TIME
--- NOTE | 2019-11-25 21:25 | NUR ---
ADM 2100 MEDS PER MD ORDERS, SEE EMAR, PT DENIES NEEDS AT THIS TIME
[2019-11-25 21:38] VITALS: BP 115/45
--- NOTE | 2019-11-25 22:43 | NUR ---
PT WATCHING TV, DENIES NEEDS OR PAIN AT THIS TIME
--- NOTE | 2019-11-25 23:35 | NUR ---
PT REQUESTED AND ASSISTED PT WITH REMOVING PANTS, DENIES FURTHER NEEDS
[2019-11-26] VITALS (7 sets, daily range): BP systolic 97–121; BP diastolic 33–51
--- NOTE | 2019-11-26 00:40 | NUR ---
PT AWAKE WATCHING TV, DENIES NEEDS OR PAIN AT THIS TIME
--- NOTE | 2019-11-26 01:33 | NUR ---
PT RESTING WITH EYES CLOSED, RESP QUIET, NO DISTRESS NOTED, LEFT UNDISTURBED AT THIS TIME
--- NOTE | 2019-11-26 03:00 | NUR ---
PT HOUSE DESIGNER LIGHT, PT C/O OF SOMETHING UNDERNEATH HER, BEDDING STRAIGHTENED UP FOR PT, PT DENIES FURTHER NEEDS OR PAIN AT THIS TIME, BED IN LOW POSITION, SIDE RAILS X 2, CALL LIGHT IN REACH
--- NOTE | 2019-11-26 03:44 | NUR ---
PT RESTING WITH EYES CLOSED, RESP QUIET, NO DISTRESS NOTED, LEFT UNDISTURBED AT THIS TIME
[2019-11-26 06:35] LABS: BASOPHILS 0.3 % (0-2); HEMATOCRIT 25.9 % (36.0-48.0); HEMOGLOBIN 8.9 g/dL (12-16); IMMATURE GRANULOCYTES 0.8 % (0-5); LYMPHOCYTES 33.2 % (15-50); MCH 31.4 pg (26.0-34.0); MCHC 34.4 g/dL (31.0-37.0); MCV 91.5 fL (80.0-100.0); MEAN PLATELET VOLUME 10.1 fL (7.4-10.4); MONOCYTES 16.2 % (2-11); NEUTROPHILS 48.5 % (40-80); RBC 2.83 10x6/uL (4.00-5.40); RDW 19.6 % (11.5-14.5)
[2019-11-26 06:50] LABS: WBC 3.8 10x3/uL (4.8-10.8)
[2019-11-26 06:51] LABS: PLATELET COUNT 31 10x3/uL (130-400)
--- NOTE | 2019-11-26 06:54 | NUR ---
PT COMING OUT OF BR, REPORTS VOIDING AND HAVING LARGE BM, PT BACK TO BED, ADM 0600 MEDS PER MD ORDERS, SEE EMAR, PT DENIES NEEDS AT THIS TIME
[2019-11-26 06:58] LABS: ANION GAP 9.2 mmol/L (8-16); CALCIUM 7.7 mg/dL (8.5-10.1); CARBON DIOXIDE 23.4 mmol/L (21.0-32.0); POTASSIUM - SERUM 4.6 mmol/L (3.5-5.1)
--- NOTE | 2019-11-26 08:30 | NUR ---
PT EATING BREAKFAST, NO NEEDS NOTED, WAIVER SIGNED/CALL LIGHT WITHIN REACH
--- NOTE | 2019-11-26 19:30 | NUR ---
FIRST UNIT OF PRBC FINSIHED, SECOND UNIT HUNG PER THIS RN AND JANET HENRY, RN, BLOOD VERIFIED, VS INITIATED, THIS RN AT BEDSIDE
--- NOTE | 2019-11-26 19:45 | NUR ---
THIS RN CONTINUES AT BEDSIDE, PT TIA WELL
--- NOTE | 2019-11-26 20:15 | NUR ---
PT CONINUES TIA TRANSFUSION WITH NO REACTION, VS CONTINUE
--- NOTE | 2019-11-26 20:45 | NUR ---
PT UP TO BR VIA WC WITH ASSISTANCE, VOIDED WITH NO DIFFICULTY, BACK TO BED
--- NOTE | 2019-11-26 21:31 | NUR ---
ADM 2100 MEDS PER MD ORDERS, SEE EMAR
--- NOTE | 2019-11-26 22:25 | NUR ---
SECOND UNIT FINISHED INFUSING, IV CONVERTED TO SALINE LOCK, FLUSHED WITH NO DIFFICULTY, SWAB CAB IN PLACE, PT UP TO BR VIA WC WITH ASSISTANCE, VOIDED, CHANGED INTO GOWN, BACK TO BED, REQUESTED AND SERVED CUP OF ICE, DENIES FURTHER NEEDS, BED IN LOW POSITOIN, SIDE RAILS X 2, CALL LIGHT IN REACH
--- NOTE | 2019-11-27 01:31 | NUR ---
PT RESTING WITH EYES CLOSED, RESP QUIET, NO DISTRESS NOTED, LEFT UNDISTURBED AT THIS TIME
--- NOTE | 2019-11-27 03:34 | NUR ---
PT RESTING WITH EYES CLOSED, RESP QUIET, NO DISTRESS NOTED, LEFT UNDISTURBED AT THIS TIME, FALL PRECAUTIONS IN PLACE
--- NOTE | 2019-11-27 05:32 | NUR ---
PT COMING OUT OF BR, REPORTS VOIDING AND HAVING A BM, PT TO BEDSIDE SCALE, PT BACK TO BED, ADM 0600 MEDS PER MD ORDERS, DENIES NEEDS OR PAIN AT THIS TIME, CUP OF ICE PROVIDED
[2019-11-27] MEDS ORDERED: LASIX40 MG PO (08:08)
[2019-11-27 08:20] VITALS: BP 131/59
[2019-11-27 09:09] LABS: MCH 31.6 pg (26.0-34.0); MCHC 34.1 g/dL (31.0-37.0); MCV 92.5 fL (80.0-100.0); MEAN PLATELET VOLUME 10.6 fL (7.4-10.4); RDW 18.1 % (11.5-14.5)
[2019-11-27 09:16] LABS: ANION GAP 10.6 mmol/L (8-16); CALCIUM 8.3 mg/dL (8.5-10.1)
[2019-11-27 09:17] LABS: HEMATOCRIT 33.1 % (36.0-48.0); HEMOGLOBIN 11.3 g/dL (12-16); POTASSIUM - SERUM 3.6 mmol/L (3.5-5.1); RBC 3.58 10x6/uL (4.00-5.40); WBC 2.8 10x3/uL (4.8-10.8)
[2019-11-27 09:19] LABS: PLATELET COUNT 29 10x3/uL (130-400)
[2019-11-27 10:05] LABS: EOSINOPHILS 2 % (0-7); LYMPHOCYTES 33 % (15-50); MONOCYTES 12 % (2-11); NEUTROPHILS 53 % (40-80); PLATELET ESTIMATE DECREASED; ROULEAUX OCC
--- NOTE | 2019-11-27 10:44 | NUR ---
PATIENT DISCHARGING HOME TODAY WITH FAMILY. [facility] WILL RESUME THERAPY AT THIS TIME. NO NEW DME NEEDED AT THIS TIME. DR. HER 12/04/19 @ 11:00. [facility] SIGNED AND IMM SERVED AND EXPLAINED , ONE GIVEN TO PATIENT AND ONE FILED IN CHART. NO COMPARE DATA REVIEWED PATIENT IS A CLIENT OF [facility] AND WISHES TO CONTINUE WITH THEIR SERVICE. DISCHARGE INSTRUCTIONS FAXED TO PCP, HOME HEALTH , [facility] AND REVIEWED WITH PATIENT PER PRIMARY NURSE.
== END 2019-11-27 17:30 | disposition home health service (06) | DRG 442 ==
LOC: D.REHAB 23:46
PROVIDERS: Internal Medicine; ADMIT Emergency Medicine; ATTEND Emergency Medicine
DX: K72.00 Acute and subacute hepatic failure without coma (principal); N17.9 Acute kidney failure, unspecified; E87.1 Hypo-osmolality and hyponatremia; D61.818 Other pancytopenia; R53.1 Weakness; D69.6 Thrombocytopenia, unspecified; K74.60 Unspecified cirrhosis of liver; J45.909 Unspecified asthma, uncomplicated; D64.9 Anemia, unspecified; I12.9 Hypertensive chronic kidney disease with stage 1 through stage 4 chronic kidney disease, or unspecified chronic kidney disease; E11.22 Type 2 diabetes mellitus with diabetic chronic kidney disease; E03.9 Hypothyroidism, unspecified; R53.83 Other fatigue; N18.3 Chronic kidney disease, stage 3 (moderate); D73.2 Chronic congestive splenomegaly; K64.9 Unspecified hemorrhoids

== ENCOUNTER → 2020-01-02 07:12 | Day surgery (SDC) | payer MEDICAID ==
[2019-11-15 14:26] VITALS: BMI 34.0
[~2020-01-02 07:12] MED LIST changes: +GALZIN25 MG PO; +MILK THISTLE; +OXYCODONE HCL5 M1 PO; +VITAMIN E100 UNIT; +[UNRECOGNIZED DRUG - OTHER]
[2020-01-02 07:50] LABS: BASOPHILS 0.3 % (0-2); EOSINOPHILS 2.1 % (0-7); HEMATOCRIT 23.5 % (36.0-48.0); HEMOGLOBIN 8.2 g/dL (12-16); IMMATURE GRANULOCYTES 0.5 % (0-5); LYMPHOCYTES 26.8 % (15-50); MCH 32.4 pg (26.0-34.0); MCHC 34.9 g/dL (31.0-37.0); MCV 92.9 fL (80.0-100.0); MEAN PLATELET VOLUME 9.8 fL (7.4-10.4); MONOCYTES 14.3 % (2-11); RBC 2.53 10x6/uL (4.00-5.40); RDW 19.4 % (11.5-14.5); WBC 6.2 10x3/uL (4.8-10.8)
[2020-01-02 07:56] LABS: APTT 39.7 SECONDS (22.8-39.4); INR 1.73 (0.85-1.17); PROTIME 20.1 SECONDS (11.6-15.0)
[2020-01-02 08:02] LABS: PLATELET COUNT 29 10x3/uL (130-400)
[2020-01-02 08:02] LABS: ALBUMIN 1.7 g/dL (3.4-5.0); ANION GAP 13.9 mmol/L (8-16); BILIRUBIN - TOTAL 5.28 mg/dL (0.2-1.3); CALCIUM 7.9 mg/dL (8.5-10.1); CARBON DIOXIDE 20.6 mmol/L (21.0-32.0); CREATININE - SERUM 1.8 mg/dL (0.6-1.3); POTASSIUM - SERUM 5.5 mmol/L (3.5-5.1); PROTEIN - SERUM 5.9 g/dL (6.4-8.2)
[2020-01-02 08:17] LABS: PLATELET ESTIMATE DECREASED
--- NOTE | 2020-01-02 08:42 | NUR ---
0820 PROCEDURE CANCELLED. SPOKE WITH DR QUEZADA. RECIEVED ORDERS TO TAKE TO ER FOR EVALUATION. PT CONFUSED AND UNABLE TO ANSWER QUESTIONS.
[2020-01-03 09:12] LABS: ANA REFLEX - DIRECT Negative (Negative)
[2020-01-06 12:09] LABS: MITOCHONDRIAL ANTIBODY <20.0 Units (0.0-20.0); SMOOTH MUSCLE ABS (ACTIN) 24 Units (0-19)
== END | disposition home or self-care (01) ==
LOC: D.SP 07:12 → D.CT 09:00 → EDSTATUS 09:00
PROVIDERS: Radiology Vascular & Interventional Radiology; ATTEND Internal Medicine Gastroenterology
DX: K74.60 Unspecified cirrhosis of liver (principal); Z53.9 Procedure and treatment not carried out, unspecified reason

== ENCOUNTER 2020-01-02 08:38 | Emergency (ER) | payer MEDICAID ==
[2020-01-02] VITALS (12 sets, daily range): BP systolic 93–111; BP diastolic 32–50; Ht 154.9 cm; Wt 100.0 kg
[~2020-01-02] VITALS: Ht 154.9 cm; Wt 100.0 kg
[~2020-01-02 08:38] MED LIST changes: -GALZIN25 MG PO; -MILK THISTLE; -OXYCODONE HCL5 M1 PO; -VITAMIN E100 UNIT; -[UNRECOGNIZED DRUG - OTHER]
--- NOTE | 2020-01-02 09:03 | NUR ---
RECEIVED PT FROM [facility]. WAS SCHEDULED FOR LIVER BIOPSY. SENT TO ER FOR LOW PLT, LOW H&H, AND ELEVATED AMONIA LEVEL PER DR. JENKINS. RESPONDS TO VERBAL STIMULATION. ALERT TO NAME, PLACE, AND DATE OF , BUT REPEATS SAME ANSWER FOR DIFFERENT QUESTIONS. [facility] NURSE STATES THAT THEY ARE ATTEMPTING TO CONTACT PT FAMILY TO INFORM THEM THAT PT IS IN THE ER. WAS DROPPED OFF THIS MORNING BY HER SON.
[2020-01-02] MEDS ORDERED: OXYCODONE HCL5 M1 PO (10:27)
[2020-01-02] MEDS ORDERED: GALZIN25 MG PO (10:28)
[2020-01-02] MEDS ORDERED: VITAMIN E100 UNIT (10:28)
[2020-01-02] MEDS ORDERED: MILK THISTLE (10:28)
[2020-01-02] MEDS ORDERED: [UNRECOGNIZED DRUG - OTHER] (10:29)
--- NOTE | 2020-01-02 10:55 | NUR ---
ATTEMPTED TO GIVE LACTULOSE, PT NOT ABLE TO FOLLOW COMMANDS.
--- NOTE | 2020-01-02 11:55 | NUR ---
I have reviewed this patient and I concur with the Shift Assessment completed by the Licensed Practical Nurse today this shift.
--- NOTE | 2020-01-02 12:20 | NUR ---
PT UNABLE TO PROVIDE CONSENT FOR BLOOD PRODUCTS. VERBAL CONSENT OBTAINED FROM DANNIE JARAMILLO (DIL). WADE HOOPER, MARÍA WITNESS.
--- NOTE | 2020-01-02 12:48 | NUR ---
[facility] CALLED FOR ASSISTANCE WITH [facility] FOR [facility]. FACE SHEET FAXED
[2020-01-02 13:03] LABS: % SATURATION 94 % (15-55); IRON 181 ug/dl (35-150); TOTAL IRON BIND CAPACITY 191 ug/dl (260-445); UNSAT IRON BIND CAPACITY 10 ug/dl (150-375)
--- NOTE | 2020-01-02 13:16 | NUR ---
JIN FROM [facility] CALLED BACK AND ACCEPTS PT FOR [place] ACCEPTING MD= [facility]. GOING TO ER REPORT # [phone]
--- NOTE | 2020-01-02 13:40 | NUR ---
RECTAL TUBE INSERTED AND LACUTLOSE SOLUTINO INSTILLED.
--- NOTE | 2020-01-02 14:08 | NUR ---
RELEASED CLAMP TO ALLOW SOME OF THE PRESSURE TO DECREASE D/T PT C/O ABD CRAMPING.
--- NOTE | 2020-01-02 14:25 | NUR ---
CLAMP REMOVED FROM RECTAL TUBE TO RELEASE PRESSURE AND ALLOW DRAINAGE.
--- NOTE | 2020-01-02 15:15 | NUR ---
RECTAL TUBE REMOVED, INTACT. PERICARE PROVIDED. REPOSITIONED IN BED. BLANKET PROVIDED.
--- NOTE | 2020-01-02 15:30 | NUR ---
REPORT CALLED TO [facility] ER. SPOKE TO NATALIE ANTONIO RN. CALL TO [facility] FOR TRANSPORT TO [facility]. ETA - WILL SEND SOMEONE OVER.
--- NOTE | 2020-01-02 16:30 | NUR ---
CALL TO [facility] PER CHARGE NURSE. ALL EMS CREWS ARE ON CALLS. WILL HAVE NEW CREW AT 1700 AND WILL SEND THEM OVER AT THAT TIME.
--- NOTE | 2020-01-02 17:15 | NUR ---
REPORT CALLED TO DANNIE JARAMILLO ([facility]) AND INFORMED HER OF TRANSFER TO [facility].
== END 2020-01-02 18:00 | disposition short-term general hospital (02) ==
LOC: D.ER 08:38 → D.MS 09:30 → D.ER 18:00
PROVIDERS: Emergency Medicine
DX: D64.9 Anemia, unspecified (principal); E11.22 Type 2 diabetes mellitus with diabetic chronic kidney disease; I12.9 Hypertensive chronic kidney disease with stage 1 through stage 4 chronic kidney disease, or unspecified chronic kidney disease; N18.9 Chronic kidney disease, unspecified; J45.909 Unspecified asthma, uncomplicated; E11.40 Type 2 diabetes mellitus with diabetic neuropathy, unspecified; K74.60 Unspecified cirrhosis of liver; G93.40 Encephalopathy, unspecified; E72.20 Disorder of urea cycle metabolism, unspecified; E80.6 Other disorders of bilirubin metabolism; E87.5 Hyperkalemia; D69.6 Thrombocytopenia, unspecified

== ENCOUNTER 2020-01-15 18:55 | Inpatient (IN) | payer MEDICAID ==
[~2020-01-15] VITALS: Ht 152.4 cm; Wt 83.2 kg
[~2020-01-15 18:55] MED LIST changes: +GALZIN25 MG PO; +MILK THISTLE; +OXYCODONE HCL5 M1 PO; +VITAMIN E100 UNIT; +[UNRECOGNIZED DRUG - OTHER]
[2020-01-15] MEDS ORDERED: XIFAXAN550 MG PO (19:07)
[2020-01-15 19:58] LABS: BASOPHILS 0.2 % (0-2); EOSINOPHILS 0.6 % (0-7); HEMOGLOBIN 8.2 g/dL (12-16); IMMATURE GRANULOCYTES 0.5 % (0-5); LYMPHOCYTES 9.9 % (15-50); MCH 32.4 pg (26.0-34.0); MCHC 34.2 g/dL (31.0-37.0); MCV 94.9 fL (80.0-100.0); MEAN PLATELET VOLUME 10.8 fL (7.4-10.4); MONOCYTES 12.2 % (2-11); NEUTROPHILS 76.6 % (40-80); RBC 2.53 10x6/uL (4.00-5.40); RDW 18.3 % (11.5-14.5); WBC 10.5 10x3/uL (4.8-10.8)
[2020-01-15 20:00] VITALS: BP 156/61
[2020-01-15 20:04] LABS: PLATELET COUNT 55 10x3/uL (130-400)
[2020-01-15 20:21] LABS: CALC OSMOLALITY 271 mosm/kg (275-300); CALCIUM 8.4 mg/dL (8.5-10.1); CARBON DIOXIDE 16.6 mmol/L (21.0-32.0); CHLORIDE - SERUM 108 mmol/L (98-107); CREATININE - SERUM 1.1 mg/dL (0.6-1.3); GLUCOSE 117 mg/dL (74-106); SODIUM 136 mmol/L (136-145); UREA NITROGEN 10 mg/dL (7-18); eGFR NON AFRICAN AMERICAN 54 mL/min (90-120)
[2020-01-15 20:22] LABS: PLATELET ESTIMATE DECREASED
--- NOTE | 2020-01-15 20:28 | NUR ---
PT ASSITES WITH SUBHASH TYLER AT THIS TIME. NO FURTHER NEEDS EXPRESSED.
[2020-01-15 20:33] LABS: APTT 50.4 SECONDS (22.8-39.4); INR 2.88 (0.85-1.17); PROTIME 29.7 SECONDS (11.6-15.0)
[2020-01-15 20:37] LABS: ALBUMIN 2.2 g/dL (3.4-5.0); ALKALINE PHOSPHATASE 107 U/L (30-120); ALT (SGPT) 28 U/L (10-68); BILIRUBIN - TOTAL 6.11 mg/dL (0.2-1.3); CKMB 3.4 U/L (0.0-3.6); CREATINE KINASE 196 UL (21-215); PRO BNP 1978 pg/mL (0-125); PROTEIN - SERUM 5.6 g/dL (6.4-8.2); TROPONIN-I 0.053 ng/mL (0.000-0.060)
[2020-01-15 20:47] LABS: BILIRUBIN NEGATIVE (NEGATIVE); KETONE NEGATIVE (NEGATIVE); NITRITE NEGATIVE (NEGATIVE); UROBILINOGEN NORMAL (NORMAL)
[2020-01-15 20:51] LABS: BACTERIA FEW /hpf (NEGATIVE); EPITHELIAL CELLS 0-5 /hpf (0-5)
[2020-01-15 21:00] VITALS: BP 148/60
--- NOTE | 2020-01-15 21:40 | NUR ---
PT ASSISTED TO LEFT LATERAL POSITION WITH PILLOW SUPPORTS AGAINT BACK FOR COMFORT AND SKIN BREAKDOWN PREVENTION.
[2020-01-15 22:00] VITALS: BP 121/45
--- NOTE | 2020-01-15 22:01 | NUR ---
PT ASSISTED WITH BREIF CHANGE. PT DENIES FURTHER NEEDS AT THIS TIME.
--- NOTE | 2020-01-15 22:45 | NUR ---
PT PROVIDED WITH ICE CHIPS UPON REQUEST.
[2020-01-15 22:49] VITALS: BP 116/35
[2020-01-15 23:00] VITALS: BP 106/46
[2020-01-15 23:03] LABS: C-REACTIVE PROTEIN 4.3 mg/dL (0.0-0.9)
[2020-01-16] VITALS: BP 115/37
[2020-01-16 01:00] VITALS: BP 115/41
--- NOTE | 2020-01-16 02:10 | NUR ---
RECEIVED PATIENT TO ROOM 2132 VIA STRETCHER. PATIENT IS AAOX4, SEMI-FOWLERS POSITION. LABORED BREATHING AND DYSPNEA ON EXERTION. VSS TEMP 98.3 BP 142/56 HR 128 RR 24 O2 94% ON 4.5L VIA NC. PATIENT PROVIDED ICE CHIPS UPON REQUEST. TELEMETRY APPLIED. PIV TO LEFT AC, PATENT, INFUSING NS @ 75ML/HR PATIENT HAS DRESSING TO MIDLINE ABDOMEN WHICH IS C/D/I. PATIENT STATES SHE HAD A LIVER BIOPSY FEW DAYS AGO. PATIENT APPEARS JAUNDICE. GENERALIZED BRUISING ALL OVER FROM FALL EARLIER THIS EVENING. PATIENT IS INCONTINENT OF URINE. PERICARE PERFRORMED AND PULL UP CHANGED. PATIENT DENIES FURTHER NEEDS AT THIS TIME. CL IN REACH, BED LOCKED AND LOWERED. COVID-[address] PENDING RESULTS. WILL CTM.
[2020-01-16 04:07] VITALS: Ht 152.4 cm; Wt 83.2 kg
[2020-01-16 10:14] LABS: CKMB 2.1 U/L (0.0-3.6); CREATINE KINASE 105 UL (21-215)
[2020-01-16 10:16] LABS: TROPONIN-I 0.097 ng/mL (0.000-0.060)
[2020-01-16 10:59] LABS: BASOPHILS 0.1 % (0-2); EOSINOPHILS 0.1 % (0-7); HEMATOCRIT 24.4 % (36.0-48.0); HEMOGLOBIN 8.2 g/dL (12-16); IMMATURE GRANULOCYTES 0.7 % (0-5); MCH 32.4 pg (26.0-34.0); MCHC 33.6 g/dL (31.0-37.0); MCV 96.4 fL (80.0-100.0); MEAN PLATELET VOLUME 9.7 fL (7.4-10.4); MONOCYTES 11.6 % (2-11); NEUTROPHILS 80.5 % (40-80); PLATELET COUNT 50 10x3/uL (130-400); RBC 2.53 10x6/uL (4.00-5.40); RDW 18.2 % (11.5-14.5)
[2020-01-16 11:03] LABS: WBC 14.7 10x3/uL (4.8-10.8)
[2020-01-16 11:10] VITALS: BP 157/47
[2020-01-16 11:23] LABS: ALBUMIN 2.2 g/dL (3.4-5.0); ANION GAP 14.1 mmol/L (8-16); BILIRUBIN - TOTAL 6.59 mg/dL (0.2-1.3); CALCIUM 8.5 mg/dL (8.5-10.1); CARBON DIOXIDE 17.5 mmol/L (21.0-32.0); CREATININE - SERUM 1.1 mg/dL (0.6-1.3); PROTEIN - SERUM 5.7 g/dL (6.4-8.2)
[2020-01-16 11:24] LABS: POTASSIUM - SERUM 4.6 mmol/L (3.5-5.1)
[2020-01-16 12:55] LABS: % SATURATION 59 % (15-55); IRON 88 ug/dl (35-150); TOTAL IRON BIND CAPACITY 149 ug/dl (260-445); UNSAT IRON BIND CAPACITY 61 ug/dl (150-375)
--- NOTE | 2020-01-16 19:05 | NUR ---
PATIENT IS RESTING IN BED. SHE IS ON CONTINOUS BIPAP. SHE IS WORKING TO BREATH EVEN WITH THE BIPAP. SHE IS A DNR. WE WILL CONTINUE TO MONITOR HER RESPIRATORY STATUS.
[2020-01-16 20:00] VITALS: BP 144/68
[2020-01-17] VITALS: BP 109/39
--- NOTE | 2020-01-17 02:25 | NUR ---
I HAD RECIEVED PT INTO MY CARE EARLIER AND DID BRIEF EXAM PT ON BIPAP AND WAS ALERT TO DENY NEEDS AT THIS TIME I WAS ALERTED BY HOUSEKEEPING ATTENDANT THAT PTS HR WAS DROPPING QUICKLY I ENTERED ROOM A COULD NOT PALPATE A COROTID PULSE AND I NOTICED A FEW LAST AGINOL BREATHS PT PHYSICIAN AND JEWEL CORNER BRUSHING MACHINE OPERATOR NOTIFIED PT IS A DNR AND CPR WAS NOT STARTED
--- NOTE | 2020-01-17 05:57 | NUR ---
RELEASED BODY TO HOME I ALSO CONTACTED [facility] AGAIN AND WAS GIVEN PERMISSION TO RELEASE BODY THEY HAVE NOT YET DETERMINED DONATION STATUS
== END 2020-01-17 06:00 | DRG 193 ==
LOC: D.ER 18:55 → D.M2 01-16 00:53
PROVIDERS: Emergency Medicine; Family Medicine; ADMIT Family Medicine Adult Medicine; ATTEND Family Medicine Adult Medicine
DX: J18.9 Pneumonia, unspecified organism (principal); J96.01 Acute respiratory failure with hypoxia; I50.33 Acute on chronic diastolic (congestive) heart failure; J81.1 Chronic pulmonary edema; N39.0 Urinary tract infection, site not specified; E87.1 Hypo-osmolality and hyponatremia; Z66 Do not resuscitate; Y95 Nosocomial condition; J44.9 Chronic obstructive pulmonary disease, unspecified; Z72.0 Tobacco use; I10 Essential (primary) hypertension; D69.6 Thrombocytopenia, unspecified; D64.9 Anemia, unspecified; D72.829 Elevated white blood cell count, unspecified; K74.60 Unspecified cirrhosis of liver; R79.89 Other specified abnormal findings of blood chemistry; K72.90 Hepatic failure, unspecified without coma; J45.909 Unspecified asthma, uncomplicated; E11.40 Type 2 diabetes mellitus with diabetic neuropathy, unspecified; E03.9 Hypothyroidism, unspecified